=== PATIENT | female | born 1935 | race Hispanic/Latino ===

== ENCOUNTER 2018-11-18 14:44 | Inpatient (IN) | payer MEDICARE, MEDICAID ==
[~2018-11-18 14:44] MED LIST: ISOVUE-370 76%-LOCM 1 ML ONE
[2018-11-18] MEDS ORDERED: Dexamethasone 10 MG/ML VIAL ONE (15:22)
[2018-11-18 15:33] LABS: Analyzer IN Cardio ER; Base Excess (BEa) -2.4 mEq/L (-2.0 to +3.0); CO2 Tension 36.7 mmHg (35.0-45.0); Calcium, Ionized 1.14 mmol/L (1.12-1.30); Carboxyhemoglobin (COHb) 0.6 gm% (0.0-3.0); Hemoglobin (Hb) 12.2 g/dL (12.0-16.0); O2 Tension (PaO2) 69.3 mmHg (> 60.0); Potassium - ABG Lab 3.45 mmol/L (3.70-5.30)
[2018-11-18 15:35] LABS: ALV-art Gradient 84.465 (0-20); Puncture Site RRA
[2018-11-18] MEDS ORDERED: Albuterol Sulfate 2.5 mg/3 ml Neb ONE (15:39)
[2018-11-18] MEDS ORDERED: Albuterol Sulfate 2.5 mg/0.5 ml Neb ONE (15:39)
[2018-11-18 15:46] LABS: #Basophils 0.1 thou/uL (0.0-0.2); #Eosinphils 0.3 thou/uL (0.0-0.7); #Lymphocytes 2.7 thou/uL (1.20-3.40); #Monocytes 1.4 thou/uL (0.11-0.59); #Neutrophils 9.5 thou/uL (1.40-6.50); %Basophils 0.7 % (0.0-1.0); %Eosinophils 1.8 % (0.0-10.0); %Lymphocytes 19.4 % (21.0-51.0); Hemoglobin 11.6 g/dL (12.0-16.0); Mean Corpuscular HGB CONC 32.5 g/dL (32.0-36.0); Mean Corpuscular Hemoglobin 30.1 pg (27.0-31.0); Mean Corpuscular Volume 92.6 fL (78.0-98.0); Mean Platelet Volume 10.5 fL (7.4-10.4); Platelet Count 188 thou/uL (130-400); RBC Distribution Width 14.5 % (11.5-14.5); Red Blood Cell (RBC) Count 3.87 mill/uL (4.20-5.40); White Blood Cell (WBC) Count 13.9 thou/uL (4.8-10.8)
--- NOTE | 2018-11-18 15:57 | RAD ---
XR Chest 1 View Portable HISTORY: Dyspnea shortness of breath, hypertension and cough COMPARISON: 11/13/2016 FINDINGS: Changes of median sternotomy are again seen. The heart is enlarged. The aorta is tortuous. Chronic changes seen in the lung villagran. No lobar consolidation, pneumothoraces or pleural effusions are identified. There is no evidence of lisa pulmonary edema. IMPRESSION: No radiographic evidence of acute cardiopulmonary process.
[2018-11-18 16:04] LABS: ALT (SGPT) 11 U/L (8-55); AST (SGOT) 19 U/L (5-34); Albumin 3.7 g/dL (3.4-4.8); Alkaline Phosphatase 64 U/L (40-150); Anion Gap 15 mmol/L (10-20); BUN (Urea Nitrogen) 23 mg/dL (9.8-20.1); Bilirubin, Total 0.5 mg/dL (0.2-1.2); CK (CPK) 204 U/L (29-168); Calc. Creatinine Clearance 0 mL/min (70-130); Calcium 9.2 mg/dL (7.8-10.44); Carbon Dioxide 24 mmol/L (23-31); Chloride 105 mmol/L (98-107); Estimated GFR-MDRD 33; Globulin 3.3 g/dL (2.4-3.5); Lipase 18 U/L (8-78); Potassium 3.8 mmol/L (3.5-5.1); Sodium 140 mmol/L (136-145)
[2018-11-18 16:08] LABS: Glucose 47 mg/dL (83-110)
[2018-11-18] MEDS ORDERED: Dextrose 50% Abboject 50 ML SYRINGE ONE (16:18)
[2018-11-18 16:34] LABS: CKMB 1.4 ng/mL (0-6.6)
[2018-11-18 17:12] LABS: Bilirubin Small (Negative); Blood, Urine Negative (Negative); Clarity CLOUDY (Clear); Glucose, Urine (Dipstick) Negative (Negative); Leukocyte Moderate (Negative); Nitrite Negative (Negative); Protein, Urine (Dipstick) 100 mg/dL (Neg-Trace); Specific Gravity, Urine 1.021 (1.002-1.036)
[2018-11-18 17:26] LABS: RBC/HPF None Seen HPF (0-3); Squamous Epithelial 0-3 HPF (0-3)
[2018-11-18 17:27] LABS: Bacteria/HPF 3+ HPF (None Seen); Hyaline Casts/LPF 0-3 HYALINE CAST LPF (0-3 Hyaline)
[2018-11-18] MEDS ORDERED: Magnesium 2 GM/50 ML BAG (IN WATER) ONE (18:32)
--- NOTE | 2018-11-18 19:17 | CT ---
CTA CHEST WITH CONTRAST: Date: 11/18/18 Multiple axial tomograms obtained through the chest following pulmonary angio protocol with multiplan ar reconstruction and 3D postprocessing. INDICATION: Shortness of breath. Assess for pulmonary embolus. FINDINGS: The pulmonary arteries show adequate opacification. No evidence of pulmonary embolus identified. There is confluent infiltrate and atelectasis in the right lower lobe concerning for inflammatory inf iltrate/pneumonia. Mediastinum is unremarkable. Thoracic aorta shows atherosclerotic change without evidence of dissecti on. Images through upper abdomen reveal a splenic cystic lesion which measures 2.0 cm. IMPRESSION: 1. No evidence of pulmonary embolus. 2. Right lower lobe infiltrate. 3. Splenic cystic lesion measuring 2.0 cm. POS: [facility]
[2018-11-18] MEDS ORDERED: Acetaminophen 650 MG Suppository PR PRN (20:26)
[2018-11-18] MEDS ORDERED: Dextrose 50% Abboject 50 ML SYRINGE SLOW IVP PRN (20:26)
[2018-11-18] MEDS ORDERED: Ondansetron PF 4 MG/2 ML Vial IVP PRN (20:26)
[2018-11-18] MEDS ORDERED: Senokot S 8.6-50 MG TAB PO PRN (20:26)
[2018-11-18] MEDS ORDERED: Dextrose 5% in Water 1,000 ML IV PRN (20:26)
[2018-11-18] MEDS ORDERED: HumaLOG 300 UNITS/3 ML VIAL SC PRN (20:26)
[2018-11-18] MEDS ORDERED: Ondansetron ODT 4 MG TAB PO PRN (20:26)
[2018-11-18 20:31] VITALS: BMI 31.3
[2018-11-18] MEDS: Simvastatin 40 MG TAB PO SCH (21:03)
[2018-11-18] MEDS: Famotidine 20 MG TAB PO SCH (21:03)
[2018-11-18] MEDS: hydrALAZINE 25 MG TAB PO SCH (21:03)
--- NOTE | 2018-11-19 01:12 | HP ---
PRIMARY CARE PHYSICIAN: Dr. Deutsch. CHIEF COMPLAINT: Shortness of breath and cough. HISTORY OF PRESENT ILLNESS': This is an 83-year-old female with a history of asthma with occasional exacerbations, who reports increasing cough productive of green sputum and shortness of breath and chest tightness for the past 3 days. She had some subjective fevers and chills as well earlier in the course. This is associated with runny nose, sore throat and with some generalized weakness. The patient presented to the emergency room. She was noted to be have increased work of breathing and have O2 sats to the low 90s, not normally on home O2. The patient was given breathing treatments, Decadron, magnesium, and Levaquin in the emergency room with improvement in her symptoms. She is now saturating well on 2 L nasal cannula and breathing much easier. She did have an elevated D-dimer and had a CT angio done which showed a right lower lobe pneumonia since she is being admitted to the hospital. PAST MEDICAL HISTORY: 1. Asthma. 2. Hypertension. 3. Coronary artery disease with previous CABG. 4. Chronic kidney disease, stage 3. 5. Hyperlipidemia. 6. Diabetes mellitus type 2, on oral hypoglycemics. PAST SURGICAL HISTORY: 1. CABG. 2. Back surgery. SOCIAL HISTORY: The patient is single, lives with her daughter. She has not smoked for over 30 years. No alcohol or illicit drug use. FAMILY HISTORY: Positive for coronary artery disease, unknown type of cancer and diabetes. ALLERGIES: PENICILLINS. CURRENT MEDICATIONS: 1. Allopurinol 100 mg daily. 2. Hydralazine 25 mg 3 times a day. 3. Calcitriol 0.25 mcg daily. 4. Glimepiride 1 mg twice a day. 5. Simvastatin 40 mg daily. 6. Omeprazole 40 mg daily. 7. Amlodipine 5 mg daily. 8. Metoprolol succinate 100 mg daily. REVIEW OF SYSTEMS: CONSTITUTIONAL: See HPI. EYES: No double vision or blurred vision. ENT: See HPI. CARDIOVASCULAR: No chest pain. No palpitations or racing heart. PULMONARY: See HPI. GASTROINTESTINAL: No abdominal pain. No nausea or vomiting. She did have some diarrhea, one episode yesterday, one episode today. GENITOURINARY: No dysuria or hematuria. MUSCULOSKELETAL: No muscle aches or joint pain. SKIN: No rashes or lesions noted. NEUROLOGICAL: No numbness, tingling, or focal weakness. Just generalized weakness. PHYSICAL EXAMINATION: VITAL SIGNS: Blood pressure 131/66, pulse 90, respirations 22, temperature 98.3, O2 saturation 100% on 2 L. GENERAL: This is a well-developed obese female, in no acute distress. HEENT: Pupils are equal, round, and reactive to light. Oropharynx clear without lesions, erythema, or exudate. NECK: Supple. No lymphadenopathy. No thyroid nodules or enlargement. No JVD. HEART: Regular rate and rhythm. No murmurs, rubs, or gallops. LUNGS: The patient has some mild crackles in the right base, otherwise good air movement throughout. She does have mild increased work of breathing, especially if she moves around or talks a lot. No wheezing. ABDOMEN: Soft, obese, nontender to palpation. Normoactive bowel sounds. No hepatosplenomegaly or other masses. EXTREMITIES: No clubbing, cyanosis, or edema. SKIN: No rashes or other lesions noted. NEUROLOGIC: Intact strength and sensation in all extremities. No facial droop. PSYCHIATRIC: Alert and oriented x3. Normal mood and affect. LABORATORY DATA: CBC with a white blood cell count of 13.9, hemoglobin 11.6, hematocrit 35.8, platelet count normal. Normal differential. Coagulation profile shows a D-dimer of 1.91. Arterial blood gases, normal pH, normal pCO2, low PO2 of 69.3. Complete metabolic panel is notable for BUN of 23, creatinine of 1.5, which is baseline for her. She did have a low glucose of 47 up to 138 after an amp of D50 in the ER. Creatine kinase was elevated at 204. The rest of everything else was normal. CK-MB was normal. Troponin was indeterminate at 0.030. Her brain natriuretic peptide was elevated at 535, last check was in 2016 was 100. Lactic acid was negative. Urinalysis showed 100 protein, small bilirubin, moderate leukocyte esterase, 4-6 white blood cells, and 3+ bacteria. IMAGING DATA: Chest x-ray, I did review the chest x-ray done in the emergency room along with the radiologist's report. It does show some cardiomegaly and tortuous aorta and median sternotomy changes. No acute changes noted. No lobar consolidation, pneumothoraces, or pleural effusions. No lisa pulmonary edema. CTA of the chest showed no evidence of pulmonary embolism, but there was a pneumonia in the right base. EKG done in the emergency room shows atrial fibrillation with a rate of 91 beats per minute. No ST-segment changes. Mild left axis deviation. ASSESSMENT: 1. Acute community-acquired bacterial pneumonia. We will continue the patient's Levaquin and admit her to the hospital. 2. Acute respiratory failure with hypoxia. We will continue oxygen, nebulized treatments, and steroids. 3. Hypoglycemia, likely secondary to infection. We will monitor closely and run sugar in her fluids. If this recurs, I will start her on a diet. We will hold her hypoglycemic medications for now. 4. New onset atrial fibrillation. The patient sees Dr. Palomino as an outpatient. We will consult Cardiology for evaluation of this. Currently, the rate is not controlled. This is likely due to stimulation to the pneumonia. The patient may end up needing anticoagulation. 5. Diabetes mellitus type 2. Holding oral hypoglycemics. We will do fingerstick blood sugars before meals and at bedtime and give insulin sliding scale as needed. 6. Gastrointestinal prophylaxis. We will continue the patient's PPI. 7. Coronary artery disease. We will resume the patient's home medications. 8. Hypertension. We will resume the patient's blood pressure medications. 9. Hyperlipidemia. We will resume the patient's statin. 10. Deep venous thrombosis prophylaxis. Put the patient on Lovenox and SCDs while in bed. 11. Code status. I did discuss this with the patient. She is a full code. Should she be incapacitated, her daughter would be her medical decision maker, her name is Anuja Blair. Job ID: [id number]
[2018-11-19] MEDS: HumaLOG 300 UNITS/3 ML VIAL SC PRN ×2 (06:03→18:10)
[2018-11-19 06:09] LABS: #Lymphocytes 0.9 thou/uL (1.20-3.40); #Monocytes 0.4 thou/uL (0.11-0.59); #Neutrophils 10.6 thou/uL (1.40-6.50); %Basophils 0.2 % (0.0-1.0); %Eosinophils 0.1 % (0.0-10.0); %Lymphocytes 7.5 % (21.0-51.0); %Monocytes 3.1 % (0.0-10.0); %Neutrophils 89.2 % (42.0-75.0); Hemoglobin 10.4 g/dL (12.0-16.0); Mean Corpuscular HGB CONC 31.6 g/dL (32.0-36.0); Mean Corpuscular Hemoglobin 29.7 pg (27.0-31.0); Mean Corpuscular Volume 93.8 fL (78.0-98.0); Mean Platelet Volume 10.5 fL (7.4-10.4); Platelet Count 171 thou/uL (130-400); RBC Distribution Width 14.4 % (11.5-14.5); Red Blood Cell (RBC) Count 3.51 mill/uL (4.20-5.40); White Blood Cell (WBC) Count 11.9 thou/uL (4.8-10.8)
[2018-11-19 06:30] LABS: Anion Gap 15 mmol/L (10-20); BUN (Urea Nitrogen) 31 mg/dL (9.8-20.1); Calc. Creatinine Clearance 33 mL/min (70-130); Calcium 8.7 mg/dL (7.8-10.44); Carbon Dioxide 21 mmol/L (23-31); Chloride 103 mmol/L (98-107); Estimated GFR-MDRD 28; Glucose 302 mg/dL (83-110); Potassium 3.9 mmol/L (3.5-5.1); Sodium 135 mmol/L (136-145)
[2018-11-19] MEDS: Allopurinol 100 MG TAB PO SCH (08:28)
[2018-11-19] MEDS: Amlodipine 5 MG TAB PO SCH (08:28)
[2018-11-19] MEDS: Famotidine 20 MG TAB PO SCH ×2 (08:28→21:57)
[2018-11-19] MEDS: Calcitriol 0.25 MCG CAP PO SCH (08:28)
[2018-11-19] MEDS: hydrALAZINE 25 MG TAB PO SCH ×3 (08:28→21:29)
[2018-11-19] MEDS ORDERED: Enoxaparin Sodium 40 MG/0.4 ML SYRINGE SC SCH (09:00)
[2018-11-19] MEDS ORDERED: Furosemide 40 MG/4 ML VIAL SLOW IVP SCH (09:00)
--- NOTE | 2018-11-19 10:44 | PRG ---
DATE OF SERVICE: 11/19/2018 SUBJECTIVE: The patient was seen and examined at bedside. She does not have much complaints to offer. She speaks some [place]. She still has cough and feels short of breath. OBJECTIVE: VITAL SIGNS: Blood pressure is 111/73, pulse is 73, temperature is 97.6, and O2 saturation 93% on 2 L by nasal cannula. She is obese. Her BMI is 31.4. HEENT: Head is atraumatic and normocephalic. Eyes are PERRLA. Sclerae are nonicteric. Oral mucosa is moist. NECK: Supple. LUNGS: Right base crackles. No wheezing. HEART: S1, S2. Irregularly irregular. No S3. No S4. No murmur. ABDOMEN: Soft, nontender, and nondistended. Bowel sounds present. EXTREMITIES: No clubbing, cyanosis, or edema. NEUROLOGIC: She follows my commands. She moves all 4 extremities. There are no any motor deficits. LABORATORY DATA: Labs showed white count of 11.9, hemoglobin 10.4, hematocrit 32.9, and platelet count 171,000. Sodium of 135, potassium 3.9, chloride 103, CO2 of 21, BUN 31, creatinine of 1.76, glucose 302, glycemia is ranging from 138 to 297, and calcium 8.7. Microbiology; two blood cultures negative x24 hours. IMPRESSION: 1. Community-acquired pneumonia, confirmed on CT of the chest. The patient is on Levaquin. We will make sure that she is getting DuoNebs. 2. Acute respiratory failure with hypoxemia, secondary to community-acquired pneumonia. 3. atrial fibrillation. The patient is going to be transferred to telemetry floor for better monitoring. Cardiology saw the patient, and they will follow. 4. Diabetes mellitus, type 2. We will restart some of her home medications for diabetes since her glycemia is up to almost 300. 5. Coronary artery disease. 6. Hypertension. 7. Hyperlipidemia. PLAN: Plan is to move her to telemetry floor. Continue her levofloxacin. The patient was started on metoprolol succinate 100 mg once a day to control her atrial fibrillation. DuoNebs q.6 hours plus p.r.n. as needed. We will start her glimepiride. Continue sliding scale for her diabetes. We will continue DVT prophylaxis. Job ID: [id number]
--- NOTE | 2018-11-19 14:01 | CON ---
DATE OF CONSULTATION: PRIMARY CARE DOCTOR: Cris Deutsch MD PRIMARY GRAVE CLEANER: Radha Palomino MD REASON FOR CARDIOLOGY CONSULT: New onset atrial fibrillation and congestive heart failure. HISTORY OF PRESENT ILLNESS: Ms. Jeffers is an 83-year-old female with a significant history of coronary artery disease with status post CABG x3 in 2002, hypertension, diabetes type 2, gout. The patient started having coughing with a shortness of breath and coughing since last Saturday, and last Saturday, she felt dizziness and fluttering in her chest. Also, she had this bilateral lower extremity edema in the last Saturday also. The patient's symptom is getting worse. So, the patient's family transferred this patient to the emergency department for further evaluation and treatment. This patient was found to have acute community-acquired bacterial pneumonia, and she is on antibiotic, which is managed by primary care doctor, and also she was found to have new onset atrial fibrillation with heart rate of 70s. At this moment, the patient denied dizziness, lightheadedness, shortness of breath, chest pain or discomfort in her chest, fluttering or palpitation in her chest, or any other cardiac complaints, except continuous coughing and wheezing. The patient had a history of CABG x3 in 2002. She had a stress test done in 2016 with nonischemic and normal myocardial function. The patient had an echocardiogram, was done in February 2017, shows EF 65%, mild MAC, mild mitral valve regurgitation, mild tricuspid regurgitation, mild aortic valve sclerosis and grade 1 diastolic dysfunction. EKG in August [address] Palomion' office showed sinus rhythm with heart rate of 74. PAST MEDICAL HISTORY: Coronary artery disease, chronic kidney disease stage 3, hypertension, asthma, hyperlipidemia, and diabetes type 2. PAST SURGICAL HISTORY: Back surgery, CABG x3 in 2002, and cataract surgery. FAMILY HISTORY: There is significant family history of hypertension and coronary artery disease. The patient's mother has a history of medical history of colon cancer, diabetes, hypertension, emphysema. She was a smoker. The patient's father was due to myocardial infarction at unknown age. The patient's brother due to colon cancer and lung cancer. He also had a history of diabetes, hypertension, coronary artery disease. The patient's daughter has hypertension. SOCIAL HISTORY: The patient lives with her daughter. She is ex-smoker, quit 30 years ago. She is an ex-EtOH abuser, quit long time ago. She denied illicit drug abuse. She uses a walker. Per family member, she has not fallen in more than 6 months, but she complained of dizziness last week. Whenever she has a pressure to the neck, she started feeling the dizziness and her blood pressure is elevated. ALLERGIES: SHE IS ALLERGIC TO PENICILLIN. CURRENT MEDICATIONS: 1. Metoprolol succinate 100 mg once a day. 2. Calcitriol 0.25 mcg daily. 3. Simvastatin 40 mg once a day. 4. Norvasc 5 mg once a day. 5. Vitamin D3 2000 units once a day. 6. Glimepiride 1 mg once a day. 7. Omeprazole 40 mg once a day. 8. ProAir two puffs every 4 to 6 hours as needed. 9. Allopurinol 100 mg once a day. 10. Hydralazine 25 mg 3 times a day. 11. Tylenol No. 3 every 6 hours as needed. REVIEW OF SYSTEMS: Twelve-point review of systems was negative unless or otherwise mentioned in the HPI. She had one episode of diarrhea last week. She denied any hematuria or hematochezia. She uses a walker. She has not fallen in more than 6 months. PHYSICAL EXAMINATION: VITAL SIGNS: Blood pressure 111/70, heart rate 73 and irregularly irregular, temperature 97.6, O2 saturation 93% on 2 L nasal cannula. GENERAL: The patient is alert and oriented x4. Hard of hearing. Not in acute distress. HEAD: Normocephalic, atraumatic. EYES: Extraocular muscle movement intact. ENT AND MOUTH: Oral and nasal mucosa are moist without lesion. NECK: No JVD. Normal range of motion. RESPIRATORY: Wheezing and diminished at the bases. CARDIOVASCULAR: Irregularly irregular. There is no S3 or S4. No significant murmur, hives, or thrills noted. 2+ pulses in bilateral upper and lower extremities. No edema in the lower extremities. Carotid pulses are present without bruits or thrill. ABDOMEN: Soft, nontender. No mass to palpitate. Bowel sounds are present. MUSCULOSKELETAL: The patient is able to move all extremities. The patient denied claudication. SKIN: Warm and dry. No lesion, rash, erythema noticed. PSYCHIATRIC: The patient's mood is appropriate. NEUROLOGIC: The patient is alert and oriented x4. The patient is able to follow commands. LABORATORY DATA: WBC 11.9, hemoglobin 10.4, hematocrit 32.9, platelet 171. D-dimer 1.91. The patient's CT scan is showing negative PE. Sodium 135, potassium 3.9, BUN 31, creatinine 1.76, which is the patient's baseline. Lactic acid 0.8. AST 19, ALT 11. CK 204, CK-MB 1.4, troponin 0.030. BNP is 535.3. ASSESSMENT AND PLAN: 1. New onset atrial fibrillation with a controlled heart rate. The patient's heart rate and vital signs are stable at this moment without any additional antiarrhythmic medication. The patient is on Lovenox 40 mg subcu once a day, which we are going to adjust the medicine as prophylactic atrial fibrillation dose, and eventually, we are going to change to oral anticoagulant. The patient has not fallen in more than 6 months, although the patient uses a walker for her balance. She is not anemic. She denies any hematuria or hematochezia at this moment. We are going to transfer the patient to the telemetry floor, and also, we are going to check the patient's left heart with the echocardiogram. 2. New onset of congestive heart failure, possible diastolic in nature. The patient's BNP is more than 500. Again, the patient is to be on beta alicia, but not SERGEY inhibitor or ARB at this moment due to history of chronic kidney disease. She denies any swelling in the lower extremity or abdomen distended, except the shortness of breath possibly due to this pneumonia. Due to continued wheezing, I would like to go ahead and order one time Lasix IV for this patient. 3. Coronary artery disease with a history of coronary artery bypass graft in 2002. The patient's condition is stable at this moment. The patient is on metoprolol, but not SERGEY inhibitor or ARB at this moment due to the chronic kidney disease. She is on simvastatin at this moment. 4. Hypertension. The patient's blood pressure is stable at this moment with current medications. 5. Diabetes type 2, which is managed by primary care doctor. 6. History of gout. She is on allopurinol 100 mg once a day. The patient is asymptomatic at this moment. 7. Pneumonia. The patient has continued wheezing. She is on breathing treatment and antibiotic, which is managed by primary care doctor. Thank you very much for allowing the Cardiology Service to participate in the care of this patient. We will follow along with the patient's care team and make further recommendation as appropriate. Job ID: [id number]
[2018-11-19] MEDS: Glimepiride 1 MG TAB PO SCH (18:09)
[2018-11-19] MEDS: Simvastatin 40 MG TAB PO SCH (21:22)
[2018-11-19] MEDS: Heparin 5,000 UNITS/ML VIAL SC SCH (21:22)
--- NOTE | 2018-11-20 00:40 | CON ---
DATE OF CONSULTATION: 11/19/2018 INDICATION FOR CONSULTATION: An 83-year-old female who was admitted with pneumonia, who had increasing shortness of breath and wheezing. She has a history of asthma. Recently, her brother . She was at the on Saturday and she went home early from the not feeling well and she has continued to have worsening of her shortness of breath and was brought into the emergency room last night by the daughter as she continued to have difficulty in breathing. In the emergency room, she was given a breathing treatment and she was admitted for further evaluation and also started on antibiotics as well as nebulizer treatments. In the emergency room, she had an EKG, which was felt to be in atrial fibrillation. However, on close evaluation of the EKG, this does not appear to be atrial fibrillation. This is a sinus rhythm with PACs and PVCs. Baseline obviously has a lot of artifact, but she has had no further atrial fibrillation since being here in the hospital that I can determine. If there are some rhythm strips downstairs in the emergency room, I would appreciate being able to see those. However, at this time, I see no indication that the patient has any atrial fibrillation and according to the records when she was in atrial fibrillation, the heart rate was in the 70s. At this time, I do not see any indication that she has atrial fibrillation. The cardiac status appears to be stable. She denied any chest pain. She did undergo bypass surgery in 2002. She had a stress test done in 2006, which showed a normal myocardial function with no evidence of ischemia. She had an echocardiogram in 2016, which showed normal ejection fraction with mild mitral valve regurgitation, mild aortic valve sclerosis and some mild diastolic dysfunction. She also had an EKG earlier this year at my office in August, which showed evidence of sinus rhythm with a heart rate in the 70s. PAST MEDICAL HISTORY: Please refer to the notes dictated by my nurse practitioner. SOCIAL HISTORY: Please refer to the notes dictated by my nurse practitioner. FAMILY HISTORY: Please refer to the notes dictated by my nurse practitioner. REVIEW OF SYSTEMS: Please refer to the notes dictated by my nurse practitioner. ALLERGIES: PLEASE REFER TO THE NOTES DICTATED BY MY NURSE PRACTITIONER. MEDICATIONS: Please refer to the notes dictated by my nurse practitioner. PHYSICAL EXAMINATION: GENERAL: Reveals an elderly female, who continues to have wheezing and shortness of breath. VITAL SIGNS: Her blood pressure is 124/69, her heart rate is in the 60s to 70s. She is afebrile, respiratory rate 16, and O2 saturation is 96%. HEENT: Shows head to be normocephalic and atraumatic. Carotid pulses are present. I could not hear any bruits with this upper airway noise noted. CHEST: Her chest has diffuse wheezing throughout with basilar rales. I did not notice any other significant abnormalities, but she did have so much wheezing and it is difficult to determine. CARDIOVASCULAR: At this time reveals a regular rate and rhythm. She has an S1 and S2. I do not hear any significant S3 or S4. There were no gross murmurs noted. ABDOMEN: Shows morbid obesity. Positive bowel sounds are present. EXTREMITIES: Show no clubbing or cyanosis. No lower extremity edema was noted. NEUROLOGICAL: She appears to be fully intact at this time. SKIN: Warm and dry. LABORATORY DATA: Please refer to the notes dictated by the nurse practitioner. I reviewed her EKG. She does have some mild cardiomegaly perhaps. She also has what appears to be a right lower lobe infiltrate. IMPRESSION: 1. At this time my impression on this lady is she has right lower lobe pneumonia with chronic obstructive pulmonary disease exacerbation from her asthma. We will continue with her antibiotics and nebulizer treatments. 2. Abnormal EKG, but does not indicate that she has atrial fibrillation. I do not see any indication for oral anticoagulation at this time. We will continue Lovenox at a deep venous thrombosis prophylaxis. I would agree with her other medical management at this time. We will be more than happy to continue to follow the patient with you until she becomes stable from a pulmonary standpoint and may consider a pulmonology consultation in this lady and certainly if she continues to deteriorate, but at this time, cardiac status appears to be stable. Job ID: [id number]
[2018-11-20] MEDS: Calcitriol 0.25 MCG CAP PO SCH (08:45)
[2018-11-20] MEDS: hydrALAZINE 25 MG TAB PO SCH ×3 (08:46→20:22)
[2018-11-20] MEDS: Famotidine 20 MG TAB PO SCH (08:46)
[2018-11-20] MEDS: Heparin 5,000 UNITS/ML VIAL SC SCH ×2 (08:47→20:22)
[2018-11-20] MEDS: Amlodipine 5 MG TAB PO SCH (08:47)
[2018-11-20] MEDS: Allopurinol 100 MG TAB PO SCH (08:47)
[2018-11-20 09:06] LABS: #Lymphocytes 1.7 thou/uL (1.20-3.40); #Monocytes 0.8 thou/uL (0.11-0.59); #Neutrophils 12.7 thou/uL (1.40-6.50); %Eosinophils 0.1 % (0.0-10.0); %Lymphocytes 11.4 % (21.0-51.0); %Monocytes 5.3 % (0.0-10.0); %Neutrophils 83.3 % (42.0-75.0); Hemoglobin 10.8 g/dL (12.0-16.0); Mean Corpuscular HGB CONC 31.6 g/dL (32.0-36.0); Mean Corpuscular Hemoglobin 29.1 pg (27.0-31.0); Mean Corpuscular Volume 92.2 fL (78.0-98.0); Mean Platelet Volume 10.2 fL (7.4-10.4); Platelet Count 223 thou/uL (130-400); RBC Distribution Width 14.4 % (11.5-14.5); Red Blood Cell (RBC) Count 3.71 mill/uL (4.20-5.40); White Blood Cell (WBC) Count 15.3 thou/uL (4.8-10.8)
[2018-11-20 09:27] LABS: Anion Gap 16 mmol/L (10-20); BUN (Urea Nitrogen) 43 mg/dL (9.8-20.1); Calc. Creatinine Clearance 33 mL/min (70-130); Calcium 9.2 mg/dL (7.8-10.44); Carbon Dioxide 21 mmol/L (23-31); Chloride 107 mmol/L (98-107); Estimated GFR-MDRD 26; Glucose 162 mg/dL (83-110); Sodium 140 mmol/L (136-145)
[2018-11-20] MEDS: Glimepiride 1 MG TAB PO SCH ×2 (10:06→16:35)
[2018-11-20] MEDS: Acetaminophen 325 MG TAB PO PRN ×2 (12:27→22:51)
--- NOTE | 2018-11-20 13:20 | PDOC.CTH ---
Cardiology Progress Note - Subjective The pt seen and examined. No overnight events. No cardiac complaints. She cont having SOB. - Objective Vital Signs Temp Pulse Pulse Pulse Resp BP BP 11/20/18 11:30 97.6 F 58 L 18 11/20/18 10:32 84 132/58 L 11/20/18 08:47 82 11/20/18 08:46 82 11/20/18 08:18 76 67 135/58 L 153/87 H 11/20/18 08:00 98.0 F 74 20 11/20/18 07:00 73 16 11/20/18 03:30 98.0 F 75 30 H 11/20/18 03:11 65 24 H BP Pulse Ox Pulse Ox Pulse Ox Pulse Ox 11/20/18 11:30 156/76 H 95 11/20/18 10:32 94 L 95 11/20/18 08:47 11/20/18 08:46 11/20/18 08:18 93 L 91 L 94 L 11/20/18 08:00 135/67 91 L 11/20/18 07:00 90 L 11/20/18 03:30 137/77 92 L 11/20/18 03:11 96 Weight 199 lb 6.4 oz 11/19/18 11/20/18 11/21/18 06:59 06:59 06:59 Intake Total 350 240 580 Balance 350 240 580 - Physical Examination General/Neuro: alert & oriented x3 Neck: no JVD present Lungs: other: (corses and diminished at bases) Heart: RRR Abdomen: soft Extremities: other: (No edema) - Telemetry Telemetry Rhythm: SR - Labs Result Diagrams: 11/20/18 08:56 11/20/18 08:56 Troponin/CKMB CK-MB (CK-2) 1.4 ng/mL (0-6.6) 11/18/18 15:22 Troponin I 0.030 ng/mL (< 0.028) H 11/18/18 15:22 - Assessment/Plan 1. Acute on Chronic diastolic HF - stable without Lasix for now;On BBlocker, but no SERGEY/ARB due to hx of CKD; 2. PNA - managed by PCP 3. CAD with hx of CABG in 2002 - stable;on BBlocker; will start ASA 4. HTN - stable 5. DM type 2 6. CKD stage 3 7. Asthma MAR reviewed Echo on 11/19/2018 with EF 60-65%, grade I diastolic dysfunction, mild MR and TR Pt. seen and eval. by me. I agree with the A/P by the COIN BOX INSPECTOR. She is still SOB and wheezing but actually better than yesterday. The cardiac status is stable. i will sign off. If any changes in her cardiac status please consult me again. Thank you. [email or web address] Review of Systems - Review of Systems Constitutional: reports: no symptoms reported EENTM: reports: no symptoms reported Respiratory: reports: see HPI Cardiac (ROS): reports: no symptoms reported ABD/GI: reports: no symptoms reported : reports: no symptoms reported Musculoskeletal: reports: no symptoms reported Skin: reports: no symptoms reported
--- NOTE | 2018-11-20 15:07 | PDOC.PN ---
- Subjective Encounter Start Date: 11/20/18 Encounter Start Time: 08:00 Pt seen for followup re; acute hypoxic respiratory failure. Cough+, sputum+. No fevers. - Objective Resuscitation Status - Order Detail: 11/18/18 19:00 Resuscitation Status Routine Resuscitation Status: FULL: Full Resuscitation Discussed with: Patient ANNALISA Reviewed: Yes Vital Signs & Weight: Vital Signs (12 hours) Temp Pulse Pulse Pulse Resp BP BP 11/20/18 11:30 97.6 F 58 L 18 11/20/18 10:32 84 132/58 L 11/20/18 08:47 82 11/20/18 08:46 82 11/20/18 08:18 76 67 135/58 L 153/87 H 11/20/18 08:00 98.0 F 74 20 11/20/18 07:00 73 16 11/20/18 03:30 98.0 F 75 30 H 11/20/18 03:11 65 24 H BP Pulse Ox Pulse Ox Pulse Ox Pulse Ox 11/20/18 11:30 156/76 H 95 11/20/18 10:32 94 L 95 11/20/18 08:47 11/20/18 08:46 11/20/18 08:18 93 L 91 L 94 L 11/20/18 08:00 135/67 91 L 11/20/18 07:00 90 L 11/20/18 03:30 137/77 92 L 11/20/18 03:11 96 Weight Weight 199 lb 6.4 oz I&O: 11/19/18 11/20/18 11/21/18 06:59 06:59 06:59 Intake Total 350 240 580 Balance 350 240 580 Result Diagrams: 11/20/18 08:56 11/20/18 08:56 Additional Labs: Accuchecks 11/20/18 11/20/18 11/19/18 10:39 05:29 20:45 POC Glucose 192 H 132 H 132 H 11/19/18 16:41 POC Glucose 174 H EKG Reviewed by me: Yes (Tele: NSR) Phys Exam - Physical Examination Obese HEENT: moist MMs blue ? tube on L tympanic membrane Neck: supple Respiratory: clear to auscultation bilateral Cardiovascular: RRR Gastrointestinal: soft Musculoskeletal: edema present Neurological: moves all 4 limbs Psychiatric: normal affect Dx/Plan (1) Acute respiratory failure with hypoxia Code(s): J96.01 - ACUTE RESPIRATORY FAILURE WITH HYPOXIA Status: Acute Comment: Improving, secondary to pneumonia (2) Pneumonia Code(s): J18.9 - PNEUMONIA, UNSPECIFIED ORGANISM Status: Acute Comment: continue levofloxacin (3) DM type 2 (diabetes mellitus, type 2) Status: Chronic Comment: reasonable control (4) HTN (hypertension) Code(s): I10 - ESSENTIAL (PRIMARY) HYPERTENSION Status: Chronic Comment: monitor vital signs, titrate antihypertensives as needed - Plan * . Review of Systems - Review of Systems ENT: Ear Pain, Throat Swelling, Other. negative: Ear Discharge, Throat Pain Respiratory: Cough, Wheezing. negative: Dry, Shortness of Breath, Hemoptysis, SOB with Excertion, Pleuritic Pain, Sputum Cardiovascular: negative: chest pain, palpitations, orthopnea, paroxysmal nocturnal dyspnea, edema, light headedness - Medications/Allergies Allergies/Adverse Reactions: Allergies Allergy/AdvReac Type Severity Reaction Status Date / Time Penicillins Allergy Severe Rash Verified 11/18/18 20:39 Medications: Current Medications Acetaminophen (Tylenol) 650 mg PO Q4H PRN PRN Reason: Headache/Fever/Mild Pain (1-3) Last Admin: 11/20/18 12:27 Dose: 650 mg Acetaminophen (Tylenol) 650 mg [place] Q4H PRN PRN Reason: Headache/Fever/Mild Pain (1-3) Albuterol/Ipratropium (Duoneb) 3 ml NEB [id number] [id number] Last Admin: 11/20/18 13:24 Dose: Not Given Albuterol/Ipratropium (Duoneb) 3 ml NEB [id number] PRN PRN Reason: SOB &/or Wheezing Last Admin: 11/20/18 03:11 Dose: 3 ml Allopurinol (Zyloprim) 100 mg PO DAILY [facility] Last Admin: 11/20/18 08:47 Dose: 100 mg Amlodipine Besylate (Norvasc) 5 mg PO DAILY [facility] Last Admin: 11/20/18 08:47 Dose: 5 mg Calcitriol (Rocaltrol) 0.25 mcg PO DAILY [facility] Last Admin: 11/20/18 08:45 Dose: 0.25 mcg Dextrose/Water (Dextrose 50%) 25 gm SLOW IVP PRN PRN PRN Reason: Hypoglycemia Famotidine (Pepcid) 20 mg PO DAILY [facility] Last Admin: 11/20/18 08:46 Dose: 20 mg Glimepiride (Amaryl) 1 mg PO BID-[facility] Last Admin: 11/20/18 10:06 Dose: 1 mg Glucagon (Glucagon) 1 mg IM PRN PRN PRN Reason: Hypoglycemia Guaifenesin/Dextromethorphan (Robitussin Dm) 15 ml PO Q4H PRN PRN Reason: Cough Heparin Sodium (Porcine) (Heparin) 5,000 units SC BID [facility] Last Admin: 11/20/18 08:47 Dose: 5,000 units Hydralazine HCl (Apresoline) 25 mg PO TID [facility] Last Admin: 11/20/18 08:46 Dose: 25 mg Dextrose/Water (D5w) 1,000 mls @ 0 mls/hr IV .Q0M PRN PRN Reason: Hypoglycemia Levofloxacin 500 mg/ Device 100 mls @ 100 mls/hr IVPB Q2D@1800 [facility] Insulin Human Lispro (Humalog) 0 units SC .MILD SLIDING SCALE PRN PRN Reason: Mild Correctional Scale Last Admin: 11/19/18 18:10 Dose: 2 unit Insulin Human Lispro (Humalog) 0 units SC .BEDTIME SLIDING SC PRN PRN Reason: Bedtime Correctional Scale Metoprolol Succinate (Toprol Xl) 100 mg PO DAILY [facility] Last Admin: 11/20/18 08:45 Dose: 100 mg Ondansetron HCl (Zofran Odt) 4 mg PO Q6H PRN PRN Reason: Nausea/Vomiting Ondansetron HCl (Zofran) 4 mg IVP Q6H PRN PRN Reason: Nausea/Vomiting Pantoprazole Sodium (Protonix) 40 mg PO DAILY [facility] Last Admin: 11/20/18 08:45 Dose: 40 mg Senna/Docusate Sodium (Senokot S) 2 tab PO BID PRN PRN Reason: Constipation Simvastatin (Zocor) 40 mg PO HS [facility] Last Admin: 11/19/18 21:22 Dose: 40 mg
[2018-11-20] MEDS: Simvastatin 40 MG TAB PO SCH (20:22)
[2018-11-20] MEDS: Guaifenesin DM 100-10/5 ML UDCUP PO PRN (22:51)
[2018-11-21 01:36] LABS: Lactic Acid 1.4 mmol/L (0.5-2.2)
[2018-11-21 01:43] LABS: ALT (SGPT) 13 U/L (8-55); AST (SGOT) 21 U/L (5-34); Albumin 3.4 g/dL (3.4-4.8); Alkaline Phosphatase 63 U/L (40-150); Anion Gap 13 mmol/L (10-20); BUN (Urea Nitrogen) 46 mg/dL (9.8-20.1); Bilirubin, Total 0.3 mg/dL (0.2-1.2); Calc. Creatinine Clearance 35 mL/min (70-130); Calcium 8.8 mg/dL (7.8-10.44); Carbon Dioxide 24 mmol/L (23-31); Chloride 108 mmol/L (98-107); Estimated GFR-MDRD 28; Globulin 2.8 g/dL (2.4-3.5); Glucose 81 mg/dL (83-110); Magnesium 2.1 mg/dL (1.6-2.6); Potassium 3.5 mmol/L (3.5-5.1); Protein, Total 6.2 g/dL (6.0-8.3); Sodium 141 mmol/L (136-145)
[2018-11-21 02:01] LABS: Analyzer IN Cardio OR; Base Excess (BEa) -0.1 mEq/L (-2.0 to +3.0); CO2 Tension 43.1 mmHg (35.0-45.0); Calcium, Ionized 1.15 mmol/L (1.12-1.30); Carboxyhemoglobin (COHb) 0.6 gm% (0.0-3.0); Hemoglobin (Hb) 10.2 g/dL (12.0-16.0); O2 Tension (PaO2) 69.5 mmHg (> 60.0); Potassium - ABG Lab 3.57 mmol/L (3.70-5.30); pH, Arterial 7.38 (7.35-7.45)
[2018-11-21 02:02] LABS: ALV-art Gradient 76.265 (0-20); Puncture Site LRA
[2018-11-21 05:25] LABS: #Basophils 0.1 thou/uL (0.0-0.2); #Eosinphils 0.1 thou/uL (0.0-0.7); #Lymphocytes 3.1 thou/uL (1.20-3.40); #Monocytes 1.4 thou/uL (0.11-0.59); #Neutrophils 9.1 thou/uL (1.40-6.50); %Basophils 0.4 % (0.0-1.0); %Eosinophils 0.5 % (0.0-10.0); %Lymphocytes 22.5 % (21.0-51.0); %Monocytes 9.9 % (0.0-10.0); %Neutrophils 66.7 % (42.0-75.0); Hemoglobin 10.7 g/dL (12.0-16.0); Mean Corpuscular HGB CONC 30.6 g/dL (32.0-36.0); Mean Corpuscular Hemoglobin 28.8 pg (27.0-31.0); Mean Corpuscular Volume 94.1 fL (78.0-98.0); Mean Platelet Volume 10.7 fL (7.4-10.4); Platelet Count 243 thou/uL (130-400); RBC Distribution Width 14.7 % (11.5-14.5); Red Blood Cell (RBC) Count 3.71 mill/uL (4.20-5.40); White Blood Cell (WBC) Count 13.7 thou/uL (4.8-10.8)
[2018-11-21 05:46] LABS: Anion Gap 14 mmol/L (10-20); BUN (Urea Nitrogen) 43 mg/dL (9.8-20.1); Calc. Creatinine Clearance 38 mL/min (70-130); Calcium 9.2 mg/dL (7.8-10.44); Carbon Dioxide 22 mmol/L (23-31); Chloride 110 mmol/L (98-107); Estimated GFR-MDRD 31; Potassium 4.1 mmol/L (3.5-5.1); Sodium 142 mmol/L (136-145)
[2018-11-21 05:50] LABS: Glucose 44 mg/dL (83-110)
--- NOTE | 2018-11-21 08:10 | RAD ---
RADIOGRAPH CHEST 1 VIEW: DATE: 11/20/2018 HISTORY: 83-year-old female with dyspnea FINDINGS: There is cardiomegaly. There is no evidence of airspace density, pulmonary edema, or pneumothorax. Th e lateral costophrenic angles are not effaced. There are sternotomy wires. IMPRESSION: 1) No acute pulmonary findings. 2) cardiomegaly without congestive heart failure.
[2018-11-21] MEDS: Glimepiride 1 MG TAB PO SCH (08:54)
[2018-11-21] MEDS: hydrALAZINE 25 MG TAB PO SCH ×3 (08:55→20:49)
[2018-11-21] MEDS: Calcitriol 0.25 MCG CAP PO SCH (08:55)
[2018-11-21] MEDS: Allopurinol 100 MG TAB PO SCH (08:55)
[2018-11-21] MEDS: Amlodipine 5 MG TAB PO SCH (08:55)
[2018-11-21] MEDS: Heparin 5,000 UNITS/ML VIAL SC SCH ×2 (08:56→20:49)
[2018-11-21] MEDS: Guaifenesin DM 100-10/5 ML UDCUP PO PRN (08:56)
[2018-11-21] MEDS: Famotidine 20 MG TAB PO SCH (08:56)
[2018-11-21] MEDS ORDERED: Furosemide 40 MG/4 ML VIAL SLOW IVP SCH (09:45)
[2018-11-21] MEDS ORDERED: Magnesium 2 GM/50 ML 2 GM in Premix Bag 1 BAG IVPB SCH (09:45)
--- NOTE | 2018-11-21 15:24 | PDOC.PN ---
- Subjective Encounter Start Date: 11/21/18 Encounter Start Time: 07:40 Pt seen for followup re: acute hypoxic respiratory failure. Says she feels well , no complaints. - Objective Resuscitation Status - Order Detail: 11/18/18 19:00 Resuscitation Status Routine Resuscitation Status: FULL: Full Resuscitation Discussed with: Danya FANG Reviewed: Yes Vital Signs & Weight: Vital Signs (12 hours) Temp Pulse Resp BP Pulse Ox 11/21/18 13:37 85 16 11/21/18 11:55 97.6 F 85 30 H 149/66 H 94 L 11/21/18 08:55 85 11/21/18 07:45 97.6 F 96 23 H 173/75 H 96 11/21/18 07:25 93 L 11/21/18 07:24 76 18 11/21/18 04:00 97.5 F L 76 21 H 134/60 94 L Weight Weight 199 lb 3.2 oz I&O: 11/20/18 11/21/18 11/22/18 06:59 06:59 06:59 Intake Total 240 1140 Balance 240 1140 Result Diagrams: 11/21/18 04:44 11/21/18 04:44 Additional Labs: Accuchecks 11/21/18 11/21/18 11/21/18 10:51 06:28 05:46 POC Glucose 174 H 116 H 50 L* 11/20/18 11/20/18 20:15 16:27 POC Glucose 104 89 EKG Reviewed by me: Yes (Tele: NSR) Phys Exam - Physical Examination Obese HEENT: sclera anicteric, oral pharynx no lesions Neck: supple Respiratory: wheezing present lot of transmitted wheezing from throat Cardiovascular: RRR Gastrointestinal: soft Neurological: moves all 4 limbs Psychiatric: normal affect Dx/Plan (1) Acute respiratory failure with hypoxia Code(s): J96.01 - ACUTE RESPIRATORY FAILURE WITH HYPOXIA Status: Acute Comment: Improving, secondary to a combination of pneumonia and diastolic CHF exacerbation. (2) Acute on chronic diastolic CHF (congestive heart failure), NYHA class 3 Code(s): I50.33 - ACUTE ON CHRONIC DIASTOLIC (CONGESTIVE) HEART FAILURE Status : Acute Comment: BNP elevated, pt hypoxic. Start furosemide. (3) Pneumonia Code(s): J18.9 - PNEUMONIA, UNSPECIFIED ORGANISM Status: Acute Comment: continue levofloxacin, appreciate pulmonology input (4) DM type 2 (diabetes mellitus, type 2) Status: Chronic Comment: Pt had hypoglycemia, decrease glimepiride dose to 1 mg daily (5) HTN (hypertension) Code(s): I10 - ESSENTIAL (PRIMARY) HYPERTENSION Status: Chronic Comment: monitor vital signs, titrate antihypertensives as needed - Plan * . Review of Systems - Review of Systems Respiratory: Wheezing. negative: Cough, Dry, Shortness of Breath, Hemoptysis, SOB with Excertion, Pleuritic Pain, Sputum Cardiovascular: negative: chest pain, palpitations, orthopnea, paroxysmal nocturnal dyspnea, edema, light headedness - Medications/Allergies Allergies/Adverse Reactions: Allergies Allergy/AdvReac Type Severity Reaction Status Date / Time Penicillins Allergy Severe Rash Verified 11/18/18 20:39 Medications: Current Medications Acetaminophen (Tylenol) 650 mg PO Q4H PRN PRN Reason: Headache/Fever/Mild Pain (1-3) Last Admin: 11/20/18 22:51 Dose: 650 mg Acetaminophen (Tylenol) 650 mg [place] Q4H PRN PRN Reason: Headache/Fever/Mild Pain (1-3) Albuterol/Ipratropium (Duoneb) 3 ml NEB [id number] [facility] Last Admin: 11/21/18 13:37 Dose: 3 ml Albuterol/Ipratropium (Duoneb) 3 ml NEB [id number] PRN PRN Reason: SOB &/or Wheezing Last Admin: 11/20/18 22:32 Dose: 3 ml Allopurinol (Zyloprim) 100 mg PO DAILY [facility] Last Admin: 11/21/18 08:55 Dose: 100 mg Amlodipine Besylate (Norvasc) 5 mg PO DAILY [facility] Last Admin: 11/21/18 08:55 Dose: 5 mg Calcitriol (Rocaltrol) 0.25 mcg PO DAILY [facility] Last Admin: 11/21/18 08:55 Dose: 0.25 mcg Dextrose/Water (Dextrose 50%) 25 gm SLOW IVP PRN PRN PRN Reason: Hypoglycemia Famotidine (Pepcid) 20 mg PO DAILY [facility] Last Admin: 11/21/18 08:56 Dose: 20 mg Glimepiride (Amaryl) 1 mg PO QA-[facility] Glucagon (Glucagon) 1 mg IM PRN PRN PRN Reason: Hypoglycemia Guaifenesin/Dextromethorphan (Robitussin Dm) 15 ml PO Q4H PRN PRN Reason: Cough Last Admin: 11/21/18 08:56 Dose: 15 ml Heparin Sodium (Porcine) (Heparin) 5,000 units SC BID [facility] Last Admin: 11/21/18 08:56 Dose: 5,000 units Hydralazine HCl (Apresoline) 25 mg PO TID [facility] Last Admin: 11/21/18 08:55 Dose: 25 mg Dextrose/Water (D5w) 1,000 mls @ 0 mls/hr IV .Q0M PRN PRN Reason: Hypoglycemia Insulin Human Lispro (Humalog) 0 units SC .MILD SLIDING SCALE PRN PRN Reason: Mild Correctional Scale Last Admin: 11/19/18 18:10 Dose: 2 unit Insulin Human Lispro (Humalog) 0 units SC .BEDTIME SLIDING SC PRN PRN Reason: Bedtime Correctional Scale Levofloxacin (Levaquin) 250 mg PO 0600 [facility] Stop: 11/26/18 06:01 Metoprolol Succinate (Toprol Xl) 100 mg PO DAILY [facility] Last Admin: 11/21/18 08:55 Dose: 100 mg Mometasone Furoate/Formoterol Fumar (Dulera 100 Mcg/5 Mcg Inhaler) 2 puff INH BID-RT [facility] Ondansetron HCl (Zofran Odt) 4 mg PO Q6H PRN PRN Reason: Nausea/Vomiting Ondansetron HCl (Zofran) 4 mg IVP Q6H PRN PRN Reason: Nausea/Vomiting Pantoprazole Sodium (Protonix) 40 mg PO DAILY [facility] Last Admin: 11/21/18 08:55 Dose: 40 mg Senna/Docusate Sodium (Senokot S) 2 tab PO BID PRN PRN Reason: Constipation Simvastatin (Zocor) 40 mg PO HS [facility] Last Admin: 11/20/18 20:22 Dose: 40 mg
[2018-11-21] MEDS: Mometasone/Formoterol 120 PUFF INHALER INH SCH (18:32)
[2018-11-21] MEDS: Simvastatin 40 MG TAB PO SCH (20:49)
--- NOTE | 2018-11-21 22:44 | CON ---
DATE OF CONSULTATION: 11/21/2018 SERVICE: Pulmonary Medicine REASON FOR CONSULTATION: Pneumonia. HISTORY OF PRESENT ILLNESS: The patient is an 83-year-old white female with past medical history significant for morbid obesity and asthma. She was diagnosed with asthma roughly one year ago. She presented to the hospital with about a week history of increasing cough, bringing up white phlegm, wheezing, and shortness of breath, particularly with exertion. She denies having any orthopnea or paroxysmal nocturnal dyspnea. She did not have any fevers. There were no sick contacts recently. Over the last day prior to admission, she started having increasing shortness of breath, cough, and it started turning yellow in color. She presented to the emergency department because of difficulty breathing, and was given some antibiotics, nebulized medications, and steroids. She was tucked in the ICU. Overnight, her breathing has improved a little bit. She denies any current fevers or chills. Nursing reports no overnight events. PAST MEDICAL HISTORY: 1. Morbid obesity. 2. Asthma, diagnosed one year ago. 3. Hypertension. 4. Dyslipidemia. 5. Chronic kidney disease, stage 3. 6. Coronary artery disease. 7. Type 2 diabetes mellitus. PAST SURGICAL HISTORY: 1. Coronary artery bypass graft surgery. 2. Back surgery. SOCIAL HISTORY: Negative for current alcohol, tobacco, or illicit drug use. She has about a [id number] history of smoking, but quit over 30 years ago. She denies any alcohol or illicit drugs. She has no exposure to chemicals, dust, asbestos , or tuberculosis that she is aware of. FAMILY HISTORY: Noncontributory. ALLERGIES: PENICILLIN. MEDICATIONS: List of her inpatient medications was reviewed. No specific updates were made at this time. REVIEW OF SYSTEMS: General; head, ears, eyes, nose, throat; cardiovascular; respiratory; GI; ; musculoskeletal; neurologic; and skin are negative except as mentioned is the HPI. PHYSICAL EXAMINATION: VITAL SIGNS: Afebrile. Pulse 85, blood pressure 149/66, respirations 16, and saturation 94% on 2 L nasal cannula. GENERAL: The patient is awake and alert, in no apparent distress. LUNGS: Decent air entry. There is not much of a prolonged expiratory phase, though I do hear minimal wheezing at the end of expiration. HEART: Normal rate, regular. ABDOMEN: Soft, nontender, and nondistended. Bowel sounds are positive. MUSCULOSKELETAL: No cyanosis or clubbing. There is trace to 1+ pitting in the bilateral lower extremities. NEUROLOGIC: grossly nonfocal. LABORATORY DATA: WBC 13.7, hemoglobin 10.7, and platelets 243,000. D-dimer 1.19. The pH of 7.38, pCO2 of 43, and pO2 of 70. At that time, she was on 28% oxygen. Blood sugar ranges from 44 up to 177, creatinine 1.59 which is close to baseline , chloride 110, and Sodium 140. BNP 1100. Urine culture is growing lactobacillus. Respiratory culture and blood cultures x2 are unremarkable today. There are many gram-positive cocci and pairs as well as clusters. IMAGING STUDIES: Chest x-ray demonstrates no real acute cardiopulmonary abnormality. Interstitial fullness is present. Lung volumes are large for her height. CTA of the chest demonstrates a very irregularly-shaped infiltrate in the right lower lobe, likely mostly consistent with partial atelectasis associated with mucus plugging. Interstitial fullness, enlarged heart are present. No pulmonary embolism is appreciated. ASSESSMENT: 1. Acute hypoxic respiratory failure. 2. [id number]-wy-[id number] diastolic heart failure. 3. Morbid obesity. 4. Asthma with acute exacerbation, possible. 5. Chronic kidney disease, stage 3. 6. Pulmonary infiltrate, likely representing minimal atelectasis, community- acquired pneumonia cannot be excluded. DISCUSSION AND PLAN: The patient is doing fine at this point from a respiratory standpoint. Agree with a single dose of Lasix as I do think she is a touch volume up. We will convert her Levaquin over to p.o. She can complete a 7-day course of this medication. We will continue our nebulized medication. I will add long- acting Dulera while she is in the hospital, but I do not think that systemic steroids are warranted given her mild respiratory changes. More than likely we are dealing with a slight volume overload event superimposed on top of sick lungs, and deconditioning. Pulmonary will continue to follow for the time being. however, when she is off oxygen, she will likely be stable for transition to home. She will ultimately require repeat CT of the chest in 6 weeks to verify this infiltrate resolves. If it does not, outpatient Pulmonary consultation will need to be considered for bronchoscopy. 70 minutes have been devoted to this patient in various activities. I personally reviewed all imaging studies and laboratory data noted within this document. For fifty percent of this time, I was interacting with the patient at the bedside or coordinating care with the care team. For the remainder of the time I was immediately available to the patient in the hospital unit. Job ID: [id number] HANNAH
[2018-11-22] MEDS: Mometasone/Formoterol 120 PUFF INHALER INH SCH ×2 (07:08→18:31)
[2018-11-22] MEDS: Famotidine 20 MG TAB PO SCH (09:16)
[2018-11-22] MEDS: Glimepiride 1 MG TAB PO SCH (09:16)
[2018-11-22] MEDS: Calcitriol 0.25 MCG CAP PO SCH (09:16)
[2018-11-22] MEDS: hydrALAZINE 25 MG TAB PO SCH ×3 (09:16→19:07)
[2018-11-22] MEDS: Amlodipine 5 MG TAB PO SCH (09:17)
[2018-11-22] MEDS: Furosemide 20 MG TAB PO SCH ×2 (09:17→15:18)
[2018-11-22] MEDS: Heparin 5,000 UNITS/ML VIAL SC SCH ×2 (09:17→19:08)
[2018-11-22] MEDS: Allopurinol 100 MG TAB PO SCH (09:21)
[2018-11-22 10:37] LABS: #Basophils 0.1 thou/uL (0.0-0.2); #Eosinphils 0.2 thou/uL (0.0-0.7); #Lymphocytes 2.3 thou/uL (1.20-3.40); #Monocytes 0.9 thou/uL (0.11-0.59); #Neutrophils 5.9 thou/uL (1.40-6.50); %Basophils 0.6 % (0.0-1.0); %Eosinophils 2.4 % (0.0-10.0); %Lymphocytes 24.7 % (21.0-51.0); %Monocytes 9.2 % (0.0-10.0); %Neutrophils 63.3 % (42.0-75.0); Hemoglobin 10.8 g/dL (12.0-16.0); Mean Corpuscular HGB CONC 32.1 g/dL (32.0-36.0); Mean Corpuscular Hemoglobin 29.7 pg (27.0-31.0); Mean Corpuscular Volume 92.6 fL (78.0-98.0); Mean Platelet Volume 9.7 fL (7.4-10.4); Platelet Count 229 thou/uL (130-400); RBC Distribution Width 14.5 % (11.5-14.5); Red Blood Cell (RBC) Count 3.64 mill/uL (4.20-5.40); White Blood Cell (WBC) Count 9.2 thou/uL (4.8-10.8)
[2018-11-22 11:04] LABS: Anion Gap 14 mmol/L (10-20); BUN (Urea Nitrogen) 33 mg/dL (9.8-20.1); Calc. Creatinine Clearance 35 mL/min (70-130); Calcium 9.2 mg/dL (7.8-10.44); Carbon Dioxide 27 mmol/L (23-31); Chloride 106 mmol/L (98-107); Estimated GFR-MDRD 28; Glucose 129 mg/dL (83-110); Sodium 143 mmol/L (136-145)
--- NOTE | 2018-11-22 12:11 | PRG ---
DATE OF SERVICE: 11/22/2018 SUBJECTIVE: This morning, the patient is less short of breath. OBJECTIVE: VITAL SIGNS: Pulse ox 100% on 1 L, temperature 97, pulse 90, blood pressure 149/69, respiratory rate 22. CHEST: Decreased breath sounds. No wheezing. CARDIAC: Normal S1 and S2. No gallop. ABDOMEN: No masses. LABORATORY DATA: Creatinine 1.73. Otherwise, CBC unremarkable. IMPRESSION: Morbid obesity, asthma, chronic obstructive pulmonary disease, renal failure, diabetes. PLAN: Continue aggressive PT. Continue neb treatments. Supportive care. We will follow. Job ID: [id number]
--- NOTE | 2018-11-22 12:38 | PDOC.PN ---
- Subjective Encounter Start Date: 11/22/18 Encounter Start Time: 07:40 Pt seen for followup re: acute hypoxic respiratory failure. Feels better today. - Objective Resuscitation Status - Order Detail: 11/18/18 19:00 Resuscitation Status Routine Resuscitation Status: FULL: Full Resuscitation Discussed with: Patient Vital Signs & Weight: Vital Signs (12 hours) Temp Pulse Resp BP Pulse Ox 11/22/18 11:45 97.9 F 90 18 158/63 H 96 11/22/18 09:17 90 11/22/18 09:16 90 11/22/18 09:10 97.5 F L 90 22 H 149/69 H 100 11/22/18 07:08 84 16 11/22/18 07:01 95 11/22/18 07:00 84 16 11/22/18 04:00 98.9 F 51 L 18 163/69 H 98 11/22/18 00:57 81 14 96 Weight Weight 196 lb 14.4 oz I&O: 11/21/18 11/22/18 11/23/18 06:59 06:59 06:59 Intake Total 1140 1360 Output Total 200 Balance 1140 1160 Result Diagrams: 11/22/18 10:31 11/22/18 10:31 Additional Labs: Accuchecks 11/22/18 11/22/18 11/21/18 10:42 05:31 20:42 POC Glucose 128 H 97 104 11/21/18 17:01 POC Glucose 138 H Phys Exam - Physical Examination Obesity HEENT: moist MMs Neck: supple Respiratory: clear to auscultation bilateral Cardiovascular: RRR, no rub Gastrointestinal: non-tender Neurological: moves all 4 limbs Psychiatric: normal affect Dx/Plan (1) Acute respiratory failure with hypoxia Code(s): J96.01 - ACUTE RESPIRATORY FAILURE WITH HYPOXIA Status: Acute Comment: Significantly improved, secondary to a combination of pneumonia and diastolic CHF exacerbation. Continue furosemide and levofloxacin. (2) Acute on chronic diastolic CHF (congestive heart failure), NYHA class 3 Code(s): I50.33 - ACUTE ON CHRONIC DIASTOLIC (CONGESTIVE) HEART FAILURE Status : Acute Comment: Improving, continue furosemide. (3) Pneumonia Code(s): J18.9 - PNEUMONIA, UNSPECIFIED ORGANISM Status: Acute Comment: continue levofloxacin (4) DM type 2 (diabetes mellitus, type 2) Status: Chronic Comment: glimepiride dose decreased to 1 mg daily yesterday due to hypoglycemia (5) HTN (hypertension) Code(s): I10 - ESSENTIAL (PRIMARY) HYPERTENSION Status: Chronic Comment: monitor vital signs, titrate antihypertensives as needed - Plan * . Review of Systems - Review of Systems Respiratory: negative: Cough, Shortness of Breath, SOB with Excertion, Pleuritic Pain, Wheezing Cardiovascular: negative: chest pain, palpitations, orthopnea, paroxysmal nocturnal dyspnea, edema, light headedness Gastrointestinal: negative: Nausea, Vomiting, Abdominal Pain, Diarrhea, Constipation, Melena, Hematochezia - Medications/Allergies Allergies/Adverse Reactions: Allergies Allergy/AdvReac Type Severity Reaction Status Date / Time Penicillins Allergy Severe Rash Verified 11/18/18 20:39 Medications: Current Medications Acetaminophen (Tylenol) 650 mg PO Q4H PRN PRN Reason: Headache/Fever/Mild Pain (1-3) Last Admin: 11/20/18 22:51 Dose: 650 mg Acetaminophen (Tylenol) 650 mg [place] Q4H PRN PRN Reason: Headache/Fever/Mild Pain (1-3) Albuterol/Ipratropium (Duoneb) 3 ml NEB [id number] [facility] Last Admin: 11/22/18 07:00 Dose: 3 ml Albuterol/Ipratropium (Duoneb) 3 ml NEB [id number] PRN PRN Reason: SOB &/or Wheezing Last Admin: 11/20/18 22:32 Dose: 3 ml Allopurinol (Zyloprim) 100 mg PO DAILY [facility] Last Admin: 11/22/18 09:21 Dose: 100 mg Amlodipine Besylate (Norvasc) 5 mg PO DAILY [facility] Last Admin: 11/22/18 09:17 Dose: 5 mg Calcitriol (Rocaltrol) 0.25 mcg PO DAILY [facility] Last Admin: 11/22/18 09:16 Dose: 0.25 mcg Dextrose/Water (Dextrose 50%) 25 gm SLOW IVP PRN PRN PRN Reason: Hypoglycemia Famotidine (Pepcid) 20 mg PO DAILY [facility] Last Admin: 11/22/18 09:16 Dose: 20 mg Furosemide (Lasix) 20 mg PO 0900,1400 [facility] Last Admin: 11/22/18 09:17 Dose: 20 mg Glimepiride (Amaryl) 1 mg PO QAM-WM [facility] Last Admin: 11/22/18 09:16 Dose: 1 mg Glucagon (Glucagon) 1 mg IM PRN PRN PRN Reason: Hypoglycemia Guaifenesin/Dextromethorphan (Robitussin Dm) 15 ml PO Q4H PRN PRN Reason: Cough Last Admin: 11/21/18 08:56 Dose: 15 ml Heparin Sodium (Porcine) (Heparin) 5,000 units SC BID [facility] Last Admin: 11/22/18 09:17 Dose: 5,000 units Hydralazine HCl (Apresoline) 25 mg PO TID [facility] Last Admin: 11/22/18 09:16 Dose: 25 mg Dextrose/Water (D5w) 1,000 mls @ 0 mls/hr IV .Q0M PRN PRN Reason: Hypoglycemia Insulin Human Lispro (Humalog) 0 units SC .MILD SLIDING SCALE PRN PRN Reason: Mild Correctional Scale Last Admin: 11/19/18 18:10 Dose: 2 unit Insulin Human Lispro (Humalog) 0 units SC .BEDTIME SLIDING SC PRN PRN Reason: Bedtime Correctional Scale Levofloxacin (Levaquin) 250 mg PO 0600 [facility] Stop: 11/26/18 06:01 Last Admin: 11/22/18 05:31 Dose: 250 mg Metoprolol Succinate (Toprol Xl) 100 mg PO DAILY [facility] Last Admin: 11/22/18 09:17 Dose: 100 mg Mometasone Furoate/Formoterol Fumar (Dulera 100 Mcg/5 Mcg Inhaler) 2 puff INH BID-RT [facility] Last Admin: 11/22/18 07:08 Dose: 2 puff Ondansetron HCl (Zofran Odt) 4 mg PO Q6H PRN PRN Reason: Nausea/Vomiting Ondansetron HCl (Zofran) 4 mg IVP Q6H PRN PRN Reason: Nausea/Vomiting Pantoprazole Sodium (Protonix) 40 mg PO DAILY [facility] Last Admin: 11/22/18 09:17 Dose: 40 mg Senna/Docusate Sodium (Senokot S) 2 tab PO BID PRN PRN Reason: Constipation Simvastatin (Zocor) 40 mg PO HS [facility] Last Admin: 11/21/18 20:49 Dose: 40 mg
[2018-11-22] MEDS: Acetaminophen 325 MG TAB PO PRN (19:07)
[2018-11-22] MEDS: Simvastatin 40 MG TAB PO SCH (19:08)
[2018-11-23] MEDS: Mometasone/Formoterol 120 PUFF INHALER INH SCH (07:58)
[2018-11-23] MEDS: Glimepiride 1 MG TAB PO SCH (08:30)
[2018-11-23] MEDS: Allopurinol 100 MG TAB PO SCH (08:30)
[2018-11-23] MEDS: Amlodipine 5 MG TAB PO SCH (08:30)
[2018-11-23] MEDS: Calcitriol 0.25 MCG CAP PO SCH (08:31)
[2018-11-23] MEDS: Furosemide 20 MG TAB PO SCH ×2 (08:31→14:47)
[2018-11-23] MEDS: Famotidine 20 MG TAB PO SCH (08:31)
[2018-11-23] MEDS: hydrALAZINE 25 MG TAB PO SCH ×2 (08:31→15:38)
[2018-11-23] MEDS: Heparin 5,000 UNITS/ML VIAL SC SCH (08:31)
--- NOTE | 2018-11-23 11:50 | PRG ---
DATE OF SERVICE: 11/23/2018 SUBJECTIVE: This morning, the patient is doing better, she is less short of breath, less cough. OBJECTIVE: VITAL SIGNS: 94% saturations on 2 L, respiratory rate 16, temperature 97, pulse 79, blood pressure 150/68. CHEST: Decreased breath sounds. No wheezing. CARDIAC: Normal S1 and S2. No gallops. ABDOMEN: Soft. ASSESSMENT: Morbid obesity, congestive heart failure, possibly superimposed pneumonia. Disposition home. Follow up with Dr. Reynoso in the office. Job ID: [id number]
[2018-11-23] MEDS: HumaLOG 300 UNITS/3 ML VIAL SC PRN (12:17)
[2018-11-23] MEDS: Acetaminophen 325 MG TAB PO PRN (12:25)
--- NOTE | 2018-11-23 13:54 | PDOC.PN ---
- Subjective Encounter Start Date: 11/23/18 Encounter Start Time: 10:30 Subjective: pt up in bed no complains - Objective Resuscitation Status - Order Detail: 11/18/18 19:00 Resuscitation Status Routine Resuscitation Status: FULL: Full Resuscitation Discussed with: Patient Vital Signs & Weight: Vital Signs (12 hours) Temp Pulse Resp BP Pulse Ox 11/23/18 13:12 72 16 11/23/18 11:25 97.9 F 79 16 152/68 H 94 L 11/23/18 08:31 99 11/23/18 08:25 98.1 F 99 18 120/57 L 93 L 11/23/18 07:58 82 16 11/23/18 07:45 82 16 11/23/18 03:10 93 L 11/23/18 03:05 97.8 F 79 20 135/62 90 L Weight Weight 191 lb 9.6 oz I&O: 11/22/18 11/23/18 11/24/18 06:59 06:59 06:59 Intake Total 1360 960 Output Total 200 900 Balance 1160 60 Result Diagrams: 11/22/18 10:31 11/22/18 10:31 Additional Labs: Accuchecks 11/23/18 11/23/18 11/22/18 11:07 05:44 20:28 POC Glucose 199 H 131 H 159 H 11/22/18 17:08 POC Glucose 128 H Phys Exam - Physical Examination Neck: no nodes, no JVD, supple, full ROM Respiratory: no wheezing, no rales, no rhonchi, wheezing present, clear to auscultation bilateral Cardiovascular: RRR, no significant murmur, no rub, gallop, irregular Gastrointestinal: soft, non-tender, no distention, positive bowel sounds Musculoskeletal: no edema, pulses present, edema present Dx/Plan (1) Acute respiratory failure with hypoxia Code(s): J96.01 - ACUTE RESPIRATORY FAILURE WITH HYPOXIA Status: Acute Comment: Significantly improved, secondary to a combination of pneumonia and diastolic CHF exacerbation. Continue furosemide and levofloxacin. (2) DM type 2 (diabetes mellitus, type 2) Status: Chronic Comment: glimepiride dose decreased to 1 mg daily yesterday due to hypoglycemia (3) HTN (hypertension) Code(s): I10 - ESSENTIAL (PRIMARY) HYPERTENSION Status: Chronic Comment: monitor vital signs, titrate antihypertensives as needed (4) Pneumonia Code(s): J18.9 - PNEUMONIA, UNSPECIFIED ORGANISM Status: Acute Comment: continue levofloxacin - Plan records reviewed pt henriquez not have afib per cardiology -: will continue levaquin for her pneumonia. -: will ask the nurse to walk her * . Review of Systems - Review of Systems Respiratory: negative: Cough, Dry, Shortness of Breath, Hemoptysis, SOB with Excertion, Pleuritic Pain, Sputum, Wheezing Cardiovascular: negative: chest pain, palpitations, orthopnea, paroxysmal nocturnal dyspnea, edema, light headedness, other Gastrointestinal: negative: Nausea, Vomiting, Abdominal Pain, Diarrhea, Constipation, Melena, Hematochezia, Other - Medications/Allergies Allergies/Adverse Reactions: Allergies Allergy/AdvReac Type Severity Reaction Status Date / Time Penicillins Allergy Severe Rash Verified 11/18/18 20:39 Medications: Current Medications Acetaminophen (Tylenol) 650 mg PO Q4H PRN PRN Reason: Headache/Fever/Mild Pain (1-3) Last Admin: 11/23/18 12:25 Dose: 650 mg Acetaminophen (Tylenol) 650 mg WA Q4H PRN PRN Reason: Headache/Fever/Mild Pain (1-3) Albuterol/Ipratropium (Duoneb) 3 ml NEB [id number] [facility] Last Admin: 11/23/18 13:12 Dose: 3 ml Albuterol/Ipratropium (Duoneb) 3 ml NEB [id number] PRN PRN Reason: SOB &/or Wheezing Last Admin: 11/20/18 22:32 Dose: 3 ml Allopurinol (Zyloprim) 100 mg PO DAILY [facility] Last Admin: 11/23/18 08:30 Dose: 100 mg Amlodipine Besylate (Norvasc) 5 mg PO DAILY [facility] Last Admin: 11/23/18 08:30 Dose: 5 mg Calcitriol (Rocaltrol) 0.25 mcg PO DAILY [facility] Last Admin: 11/23/18 08:31 Dose: 0.25 mcg Dextrose/Water (Dextrose 50%) 25 gm SLOW IVP PRN PRN PRN Reason: Hypoglycemia Famotidine (Pepcid) 20 mg PO DAILY [facility] Last Admin: 11/23/18 08:31 Dose: 20 mg Furosemide (Lasix) 20 mg PO 0900,1400 [facility] Last Admin: 11/23/18 08:31 Dose: 20 mg Glimepiride (Amaryl) 1 mg PO QAM-WM [facility] Last Admin: 11/23/18 08:30 Dose: 1 mg Glucagon (Glucagon) 1 mg IM PRN PRN PRN Reason: Hypoglycemia Guaifenesin/Dextromethorphan (Robitussin Dm) 15 ml PO Q4H PRN PRN Reason: Cough Last Admin: 11/21/18 08:56 Dose: 15 ml Heparin Sodium (Porcine) (Heparin) 5,000 units SC BID [facility] Last Admin: 11/23/18 08:31 Dose: 5,000 units Hydralazine HCl (Apresoline) 25 mg PO TID [facility] Last Admin: 11/23/18 08:31 Dose: 25 mg Dextrose/Water (D5w) 1,000 mls @ 0 mls/hr IV .Q0M PRN PRN Reason: Hypoglycemia Insulin Human Lispro (Humalog) 0 units SC .MILD SLIDING SCALE PRN PRN Reason: Mild Correctional Scale Last Admin: 11/23/18 12:17 Dose: 2 unit Insulin Human Lispro (Humalog) 0 units SC .BEDTIME SLIDING SC PRN PRN Reason: Bedtime Correctional Scale Levofloxacin (Levaquin) 250 mg PO 0600 [facility] Stop: 11/26/18 06:01 Last Admin: 11/23/18 05:01 Dose: 250 mg Metoprolol Succinate (Toprol Xl) 100 mg PO DAILY [facility] Last Admin: 11/23/18 08:31 Dose: 100 mg Mometasone Furoate/Formoterol Fumar (Dulera 100 Mcg/5 Mcg Inhaler) 2 puff INH BID-RT [facility] Last Admin: 11/23/18 07:58 Dose: 2 puff Ondansetron HCl (Zofran Odt) 4 mg PO Q6H PRN PRN Reason: Nausea/Vomiting Ondansetron HCl (Zofran) 4 mg IVP Q6H PRN PRN Reason: Nausea/Vomiting Pantoprazole Sodium (Protonix) 40 mg PO DAILY [facility] Last Admin: 11/23/18 08:31 Dose: 40 mg Senna/Docusate Sodium (Senokot S) 2 tab PO BID PRN PRN Reason: Constipation Simvastatin (Zocor) 40 mg PO HS [facility] Last Admin: 11/22/18 19:08 Dose: 40 mg
[2018-11-23 15:37] VITALS: BP 128/60; TEMP 98.1
== END 2018-11-23 17:04 | disposition home health service (06) | DRG 291 ==
LOC: ERS 14:44 → T4-B 20:20 → 2NO 11-19 09:42
PROVIDERS: ADMIT Emergency Medicine; ATTEND Emergency Medicine
DX: I13.0 Hypertensive heart and chronic kidney disease with heart failure and stage 1 through stage 4 chronic kidney disease, or unspecified chronic kidney disease (principal); J15.9 Unspecified bacterial pneumonia; J96.01 Acute respiratory failure with hypoxia; I50.33 Acute on chronic diastolic (congestive) heart failure; J45.901 Unspecified asthma with (acute) exacerbation; N18.3 Chronic kidney disease, stage 3 (moderate); E11.22 Type 2 diabetes mellitus with diabetic chronic kidney disease; E78.5 Hyperlipidemia, unspecified; I25.10 Atherosclerotic heart disease of native coronary artery without angina pectoris; E11.649 Type 2 diabetes mellitus with hypoglycemia without coma; I48.91 Unspecified atrial fibrillation; M10.9 Gout, unspecified; E66.01 Morbid (severe) obesity due to excess calories; Z79.84 Long term (current) use of oral hypoglycemic drugs; Z95.1 Presence of aortocoronary bypass graft; Z87.891 Personal history of nicotine dependence; Z88.0 Allergy status to penicillin; Z79.899 Other long term (current) drug therapy; Z68.31 Body mass index [BMI] 31.0-31.9, adult
CPT/HCPCS: 36415; 36416; 51701; 71045; 71275; 80048; 80053; 81003; 81015; 82550; 82553; 82805; 83605; 83690; 83735; 83880; 84484; 85025; 85379; 87040; 87070; 87086; 87205; 93005; 93306; 93798; 94640; 94644; 96361; 96365; 96366; 96368; 96375; A4353; J1100; J1644; J1650; J1940; J1956; J3475; J7611; J7620; Q9966

== ENCOUNTER 2018-12-07 09:07 | Emergency (ER) | payer MEDICARE, MEDICAID ==
[2018-12-07 10:03] LABS: #Basophils 0.1 thou/uL (0.0-0.2); #Eosinphils 0.2 thou/uL (0.0-0.7); #Lymphocytes 1.8 thou/uL (1.20-3.40); #Monocytes 0.5 thou/uL (0.11-0.59); #Neutrophils 5.6 thou/uL (1.40-6.50); %Basophils 0.7 % (0.0-1.0); %Eosinophils 2.7 % (0.0-10.0); %Lymphocytes 22.2 % (21.0-51.0); %Monocytes 6.5 % (0.0-10.0); %Neutrophils 67.9 % (42.0-75.0); Hemoglobin 11.2 g/dL (12.0-16.0); Mean Corpuscular Hemoglobin 29.8 pg (27.0-31.0); Mean Corpuscular Volume 93.1 fL (78.0-98.0); Mean Platelet Volume 10.1 fL (7.4-10.4); Platelet Count 183 thou/uL (130-400); RBC Distribution Width 15.2 % (11.5-14.5); Red Blood Cell (RBC) Count 3.77 mill/uL (4.20-5.40); White Blood Cell (WBC) Count 8.2 thou/uL (4.8-10.8)
[2018-12-07 10:20] LABS: ALT (SGPT) 9 U/L (8-55); AST (SGOT) 10 U/L (5-34); Albumin 3.7 g/dL (3.4-4.8); Alkaline Phosphatase 69 U/L (40-150); Anion Gap 15 mmol/L (10-20); BUN (Urea Nitrogen) 31 mg/dL (9.8-20.1); Bilirubin, Total 0.4 mg/dL (0.2-1.2); Calc. Creatinine Clearance 0 mL/min (70-130); Calcium 9.4 mg/dL (7.8-10.44); Carbon Dioxide 24 mmol/L (23-31); Chloride 106 mmol/L (98-107); Estimated GFR-MDRD 31; Globulin 2.9 g/dL (2.4-3.5); Glucose 142 mg/dL (83-110); Potassium 4.2 mmol/L (3.5-5.1); Protein, Total 6.6 g/dL (6.0-8.3); Sodium 141 mmol/L (136-145)
--- NOTE | 2018-12-07 10:35 | RAD ---
PORTABLE CHEST 1 VIEW: DATE: 12/07/2018. TIME: 9:19 a.m. HISTORY: Cough, shortness of breath. FINDINGS: Comparison is made to the exam of 11/20/2018. The heart is enlarged. Changes of median sternotomy are again seen. The lungs are well expanded wit hout lobar consolidation, pneumothoraces, lisa pulmonary edema, or pleural effusions. IMPRESSION: No acute process. POS: HUGO
[2018-12-07] MEDS ORDERED: predniSONE 20 MG TAB ONE (12:01)
== END 2018-12-07 11:58 | disposition home or self-care (01) ==
LOC: ERS 09:07
DX: R05 Cough (principal); E78.00 Pure hypercholesterolemia, unspecified; E11.22 Type 2 diabetes mellitus with diabetic chronic kidney disease; I12.9 Hypertensive chronic kidney disease with stage 1 through stage 4 chronic kidney disease, or unspecified chronic kidney disease; N18.9 Chronic kidney disease, unspecified; Z87.891 Personal history of nicotine dependence; Z79.899 Other long term (current) drug therapy; Z79.82 Long term (current) use of aspirin
CPT/HCPCS: 36415; 71045; 80053; 83880; 84484; 85025; 93005; J7512; J7620

== ENCOUNTER 2019-08-14 16:02 | Outpatient (CLI) | payer MEDICARE, MEDICAID ==
--- NOTE | 2019-08-14 16:32 | RAD ---
EXAM: Two views chest PROVIDED CLINICAL HISTORY: Shortness of breath. COMPARISON: 12/07/2018 FINDINGS: Postsurgical changes related to CABG are again noted. Cardiac silhouette is mildly enlarged. Pulmonar y vasculature is within normal limits. Mild linear and patchy densities are seen in the lateral aspect right lung base which could be related to volume loss versus developing pneumonia. Follow-up e xamination is recommended. There is questionable nodular density overlying the lateral left midlung zone, but this may be artifactual. This can also be reevaluated on follow-up exam. Degenerative mahan es are again seen in the spine. Osteopenia is noted. Vascular calcifications are seen in the thoracic and visualized abdominal aorta. IMPRESSION: Minimal linear and patchy densities lateral right midlung zone which may be related to volume loss or developing pneumonia. This was not seen on prior study. In addition, a questionable nodular density overlies the lateral left mid lung zone which was not seen on prior exam. Follow-up examinati on is recommended to ensure resolution of these findings.
== END 2019-08-14 16:03 | disposition home or self-care (01) ==
LOC: BICRAD 16:02
PROVIDERS: ATTEND Family Medicine
DX: R06.02 Shortness of breath (principal); J98.4 Other disorders of lung
CPT/HCPCS: 71046

== ENCOUNTER 2019-08-25 10:39 | Outpatient (CLI) | payer MEDICARE, MEDICAID ==
--- NOTE | 2019-08-25 11:29 | BD ---
BONE DENSITOMETRY USING DEXA: Date: 08/25/2019 HISTORY: Postmenopausal screening for osteoporosis. Localized osteoporosis. FINDINGS: Lumbar Spine: BMD (g/cm2) L1 0.697 T-Score: -2.7 Z-Score: -0.2 L2 0.633 T-Score: -3.6 Z-Score: -0.8 L3 0.593 T-Score: -4.5 Z-Score: -1.5 L4 0.766 T-Score: -2.7 Z-Score: 0.3 L1-L4 0.672 T-Score: -3.4 Z-Score: -0.6 Femoral Neck: 0.478 T-Score: -3.3 Z-Score: -0.9 Total Femur: 0.612 T-Score: -2.7 Z-Score: -0.4 IMPRESSION: Osteoporosis. POS: TPC
--- NOTE | 2019-08-25 11:47 | MMO ---
Bilateral MAMMO Bilat Screen [facility]CHARLINE. CLINICAL HISTORY: Patient is 83 years old and is seen for screening. VIEWS: The views performed were: . FILMS COMPARED: The present examination has been compared to a prior imaging study performed at [facility] on 11/09/2016. This study has been interpreted with the assistance of computer-aided detection. MAMMOGRAM FINDINGS: There are scattered fibroglandular densities. There are stable benign appearing calcifications seen in both breasts. There are no suspicious masses, suspicious calcifications, or new areas of architectural distortion. IMPRESSION: THERE IS NO MAMMOGRAPHIC EVIDENCE OF MALIGNANCY. A ROUTINE FOLLOW-UP MAMMOGRAM IN 1 YEAR IS RECOMMENDED. THE RESULTS OF THIS EXAM WERE SENT TO THE PATIENT. ACR BI-RADS Category 2 - Benign finding MAMMOGRAPHY NOTE: 1. A negative mammogram report should not delay a biopsy if a dominant of clinically suspicious mass is present. 2. Approximately 10% to 15% of breast cancers are not detected by mammography. 3. Adenosis and dense breasts may obscure an underlying neoplasm. Reported by: TOYIN WEBB MD Electonically Signed: [id number]
== END 2019-08-25 10:40 | disposition home or self-care (01) ==
LOC: BICMAMMO 10:39
PROVIDERS: ATTEND Family Medicine
DX: Z12.31 Encounter for screening mammogram for malignant neoplasm of breast (principal); M81.6 Localized osteoporosis [Lequesne]; M81.0 Age-related osteoporosis without current pathological fracture
CPT/HCPCS: 77063; 77067; 77080

== ENCOUNTER 2019-08-31 18:58 | Observation (INO) | payer MEDICARE, MEDICAID ==
[2019-08-31 19:48] LABS: #Eosinphils 0.2 thou/uL (0.0-0.7); #Lymphocytes 1.6 thou/uL (1.20-3.40); #Monocytes 0.7 thou/uL (0.11-0.59); #Neutrophils 4.1 thou/uL (1.40-6.50); %Basophils 0.7 % (0.0-1.0); %Monocytes 10.8 % (0.0-10.0); %Neutrophils 61.6 % (42.0-75.0); Hemoglobin 12.4 g/dL (12.0-16.0); Mean Corpuscular HGB CONC 31.9 g/dL (32.0-36.0); Mean Corpuscular Hemoglobin 29.9 pg (27.0-31.0); Mean Corpuscular Volume 93.7 fL (78.0-98.0); Mean Platelet Volume 10.3 fL (7.4-10.4); Platelet Count 201 thou/uL (130-400); RBC Distribution Width 14.3 % (11.5-14.5); Red Blood Cell (RBC) Count 4.13 mill/uL (4.20-5.40); White Blood Cell (WBC) Count 6.7 thou/uL (4.8-10.8)
--- NOTE | 2019-08-31 20:01 | RAD ---
Portable frontal chest radiograph: 08/31/2019 COMPARISON: 08/14/2019 HISTORY: Cough FINDINGS: There is a rounded area of nonspecific increased density in the right infrahilar region, ne w when compared to the prior exam. Midline sternotomy wires are noted. There is mild pulmonary vascular congestion. No lobar consolidation, pneumothorax, or large volume pleural effusion. IMPRESSION: Rounded masslike opacity in the right infrahilar region. Etiology is uncertain as this ap pears to represent a new finding when compared to the prior study performed at approximately 2 weeks prior. Thus, this may reflect artifact, volume loss, or infiltrate. A mass is a much less likel y possibility. Recommend follow-up 2 view examination of the chest for further assessment CODE T
[2019-08-31 20:09] LABS: ALT (SGPT) 10 U/L (8-55); AST (SGOT) 16 U/L (5-34); Alkaline Phosphatase 72 U/L (40-110); Anion Gap 11 mmol/L (10-20); BUN (Urea Nitrogen) 28 mg/dL (9.8-20.1); Bilirubin, Total 0.4 mg/dL (0.2-1.2); Calc. Creatinine Clearance 0 mL/min (70-130); Calcium 9.6 mg/dL (7.8-10.44); Carbon Dioxide 29 mmol/L (23-31); Chloride 106 mmol/L (98-107); Estimated GFR-MDRD 33; Globulin 2.9 g/dL (2.4-3.5); Glucose 60 mg/dL (83-110); Potassium 4.2 mmol/L (3.5-5.1); Protein, Total 6.9 g/dL (6.0-8.3); Sodium 142 mmol/L (136-145)
[2019-08-31] MEDS ORDERED: Cefepime 2 GM VIAL ONE (21:23)
[2019-08-31] MEDS ORDERED: Azithromycin 500 MG VIAL ONE (21:23)
[2019-08-31] MEDS ORDERED: Sodium Chloride 0.9% 100 ML ONE (21:24)
[2019-09-01 01:58] VITALS: BMI 34.8
[2019-09-01] MEDS ORDERED: hydrALAZINE 20 MG/ML VIAL SLOW IVP PRN (02:48)
[2019-09-01] MEDS: Diabetic Tussin 200 MG/10 ML UDCUP PO PRN ×3 (03:32→14:06)
--- NOTE | 2019-09-01 05:55 | HP ---
PRIMARY CARE: Dr. Deutsch. PRIMARY ADMINISTRATION PHYSICIAN: Dr. Durán. PRIMARY PRINTING PLATE MAKER: Dr. Palomino. CHIEF COMPLAINT: Shortness of breath with cough. HISTORY OF PRESENT ILLNESS: The patient is an 83-year-old female with diabetes mellitus type 2, asthma, coronary artery disease, and chronic diastolic heart failure, presented to the emergency room with above complaints. The patient presented to the emergency room with complaints of cough along with shortness of breath that has been ongoing for last few days. Her symptoms got worse over the past 24 hours. She had cough that was productive of thick whitish phlegm. She also had nausea without any vomiting. She complains of shortness of breath even when she is resting. She denies any sick contacts, fever, or chills. No recent immobilization travel reported. She denies any chest pain, palpitations, orthopnea, paroxysmal nocturnal dyspnea, or lower extremity swelling. Her vital signs in the emergency room showed temperature 98.1, respirations of 18, pulse of 70 with a blood pressure 214/88, and O2 saturation 94% on room air. Her chest x-ray was consistent with pneumonia. She received cefepime along with azithromycin in the emergency room. At this time, the patient continues to have shortness of breath. Her O2 saturation after arrival to her room was 90% on room air. She is currently on 2 L nasal cannula. PAST MEDICAL HISTORY: 1. Chronic diastolic heart failure. 2. Coronary artery disease, status post CABG. 3. Hypertension. 4. Diabetes mellitus type 2. 5. CKD stage 3. 6. Asthma. PAST SURGICAL HISTORY: 1. Coronary artery bypass grafting. 2. Back surgery. 3. Cataract surgery. ALLERGIES: THE PATIENT IS ALLERGIC TO PENICILLIN. CURRENT HOME MEDICATIONS: 1. Toprol-XL 100 mg daily. 2. Simvastatin 40 mg at bedtime. 3. Omeprazole 40 mg daily. 4. Hydralazine 50 mg 3 times a day. 5. Glimepiride 1 mg b.i.d. 6. Calcitriol 0.25 mcg daily. 7. Allopurinol 100 mg daily. 8. Tylenol No. 3 as needed. 9. Ventolin inhaler as needed. SOCIAL HISTORY: The patient currently lives at home with her family. She denies current use of smoking, alcohol, or drug use. She is . She is full code. Her daughter is the decision maker. FAMILY HISTORY: Positive for heart disease. REVIEW OF SYSTEMS: All other review of systems was reviewed and was found negative. PHYSICAL EXAMINATION: VITAL SIGNS: As discussed above. GENERAL: An 83-year-old female in mild to moderate respiratory distress, able to complete short phrases. HEENT: Head, atraumatic and normocephalic. Sclerae anicteric. Moist mucous membranes. No oral lesion. NECK: Supple. No JVD appreciated. No carotid bruit. No stridor. LUNGS: Showed accessory muscle use with scattered rhonchi with expiratory wheezing. There were rales on the right side. HEART: S1 and S2 present. Regular. No rubs or gallops. ABDOMEN: Soft. Bowel sounds present. No rebound or guarding. No costovertebral angle tenderness. EXTREMITIES: No edema or calf tenderness. NEUROLOGIC: Grossly nonfocal. Moves all 4 extremities. Power was 5/5 in all extremities. PSYCHIATRIC: The patient is alert, awake, and oriented x3. SKIN: Warm and dry. LYMPH NODES: No palpable lymph nodes in the neck. PERIPHERAL/VASCULAR: Radial pulses palpable bilaterally. MUSCULOSKELETAL: No joint swelling or tenderness. LABORATORY DATA: EKG by my review showed left axis deviation with sinus rhythm and occasional PVCs. Chemistry showed sodium of 142, potassium 4.2, chloride 106, bicarb 29, BUN 28, creatinine 1.49. LFTs in normal range. BNP was 634. CBC showed WBC 6.7 with hemoglobin 12.4, hematocrit 38.7, platelet of 201. Chest x-ray by my review showed possible right-sided infiltrate. Influenza testing was negative. IMPRESSION: 1. Acute hypoxic respiratory failure secondary to community-acquired pneumonia, suspected gram-negative. 2. Chronic diastolic heart failure, questionable decompensated. 3. Diabetes mellitus type 2 with hypoglycemia. 4. Hypertension. 5. Chronic kidney disease, stage 3. 6. Hyperlipidemia. 7. Asthma with asthma exacerbation. 8. Coronary artery disease, status post coronary artery bypass grafting. 9. Obesity with a BMI of 34.8. PLAN: O2 supplementation, Nebs, IV Cefepime/Azithromycin, PA/Lat CXR, Resume home meds Insulin sliding scale, Hold Glimepiride, Hold steroids for now, Vitals Q4h The patient and the family understands the plan of care. The patient is Hungarian speaking only. Job ID: [id number] [facility]
[2019-09-01] MEDS ORDERED: Senokot S 8.6-50 MG TAB PO PRN (05:56)
[2019-09-01] MEDS ORDERED: Calcium Carbonate 500 MG ChewTAB PO PRN (05:56)
[2019-09-01] MEDS ORDERED: Insulin Regular 300 UNITS/3 ML VIAL SC PRN ×2 (05:56)
[2019-09-01] MEDS ORDERED: Acetaminophen 325 MG TAB PO PRN (05:56)
[2019-09-01] MEDS ORDERED: Ondansetron ODT 4 MG TAB PO PRN (05:56)
[2019-09-01] MEDS ORDERED: Ondansetron PF 4 MG/2 ML Vial IVP PRN (05:56)
[2019-09-01] MEDS ORDERED: Acetaminophen/Codeine 30-300mg Tablet PO PRN (06:09)
[2019-09-01] MEDS ORDERED: PROVENTIL INHALER 6.7 G (200 INHALATIONS) INH PRN (06:09)
[2019-09-01] MEDS: hydrALAZINE 25 MG TAB PO SCH ×3 (08:14→20:29)
[2019-09-01] MEDS: Saccharomyces boulardii 250 MG CAP PO SCH (08:14)
[2019-09-01] MEDS: Allopurinol 100 MG TAB PO SCH (08:14)
[2019-09-01] MEDS: guaiFENesin ER 600 MG TAB PO SCH ×2 (08:14→20:29)
[2019-09-01] MEDS: Calcitriol 0.25 MCG CAP PO SCH (08:14)
[2019-09-01] MEDS: Enoxaparin Sodium 30 MG/0.3 ML SYRINGE SC SCH (08:15)
[2019-09-01] MEDS ORDERED: Cefepime 2 GM in Sodium Chloride 0.9% 100 ML IVPB SCH ×2 (09:00→22:00)
[2019-09-01] MEDS ORDERED: hydrALAZINE 25 MG TAB PO SCH (09:00)
[2019-09-01] MEDS ORDERED: Famotidine 20 MG TAB PO SCH (09:00)
--- NOTE | 2019-09-01 10:55 | RAD ---
2 views of the chest: 09/01/2019 COMPARISON: 2 view examination of the chest 08/14/2019, frontal radiograph chest 08/31/2019 HISTORY: Evaluate possible abnormality in the right hilar region FINDINGS: Midline sternotomy wires are present. Heart and mediastinal contours are stable. There is m ild prominence in the right hilar region, less conspicuous than on the recent portable chest radiograph. This is similar in appearance when compared to prior chest radiographs dating back to 10/23, consistent with vascular prominence. No pneumothorax or pleural fluid. No focal consolidation or alveolar edema. Stable diffuse increased linear interstitial density. There is ather osclerotic calcification of the abdominal aorta. IMPRESSION: No acute findings. Chronic findings as described above. The area of concern on recent por table chest radiograph represents vascular prominence when compared to prior imaging.
--- NOTE | 2019-09-01 11:27 | PDOC.HOSPP ---
- Subjective Encounter Date: 09/01/19 Encounter Time: 11:25 Subjective: comfortable, no sob - Objective Vital Signs & Weight: Vital Signs (12 hours) Temp Pulse Resp BP BP Pulse Ox 09/01/19 11:13 97.9 F 67 24 H 150/70 H 96 09/01/19 11:12 89 20 09/01/19 09:39 77 146/77 H 09/01/19 08:14 77 180/70 H 09/01/19 07:35 98.7 F 77 32 H 180/70 H 94 L 09/01/19 06:37 70 16 100 09/01/19 05:00 128/76 09/01/19 03:48 98.1 F 77 18 175/81 H 97 09/01/19 03:32 75 182/83 H 09/01/19 03:15 96 09/01/19 03:14 71 18 96 09/01/19 01:30 98.1 F 73 22 H 194/76 H 90 L Weight Weight 178 lb 3.2 oz I&O: 08/31/19 09/01/19 09/02/19 06:59 06:59 06:59 Intake Total 10 Balance 10 Result Diagrams: 08/31/19 19:37 08/31/19 19:37 Additional Labs: Accuchecks 09/01/19 09/01/19 05:47 05:04 POC Glucose 138 H 66 L Hospitalist ROS - Medication Medications: Active Medications Generic Name Dose Route Start Last Admin Trade Name Freq PRN Reason Stop Dose Admin Albuterol/Ipratropium 3 ml 09/01/19 06:30 09/01/19 11:12 Duoneb NEB 3 ml [id number] MARGARITO Administration Albuterol/Ipratropium 3 ml 09/01/19 02:49 09/01/19 03:14 Duoneb NEB 3 ml [id number] PRN Administration SOB &/or Wheezing Allopurinol 100 mg 09/01/19 09:00 09/01/19 08:14 Zyloprim PO 100 mg DAILY MARGARITO Administration Calcitriol 0.25 mcg 09/01/19 09:00 09/01/19 08:14 Rocaltrol PO 0.25 mcg DAILY MARGARITO Administration Enoxaparin Sodium 30 mg 09/01/19 09:00 09/01/19 08:15 Lovenox SC 30 mg 0900 MARGARITO Administration Guaifenesin 600 mg 09/01/19 09:00 09/01/19 08:14 Mucinex PO 600 mg Q12HR MARGARITO Administration Guaifenesin 200 mg 09/01/19 02:48 09/01/19 08:14 Robitussin Sf PO 200 mg Q4H PRN Administration Cough Hydralazine HCl 10 mg 09/01/19 02:48 09/01/19 03:32 Apresoline SLOW IVP 10 mg Q4H PRN Administration SBP Greater Than 180 Hydralazine HCl 50 mg 09/01/19 09:00 09/01/19 08:14 Apresoline PO 50 mg TID MARGARITO Administration Metoprolol Succinate 100 mg 09/01/19 09:00 09/01/19 08:14 Toprol Xl PO 100 mg DAILY MARGARITO Administration Pantoprazole Sodium 40 mg 09/01/19 09:00 09/01/19 08:14 Protonix PO 40 mg DAILY MARGARITO Administration Saccharomyces Boulardii 250 mg 09/01/19 09:00 09/01/19 08:14 Florastor PO 250 mg DAILY MARGARITO Administration - Exam General Appearance: awake alert Neck: no JVD Heart: RRR, no murmur Respiratory - other findings: expiratory wheezes Gastrointestinal: soft, normal bowel sounds Skin: no rashes Hosp A/P (1) Chronic diastolic HF (heart failure) Code(s): I50.32 - CHRONIC DIASTOLIC (CONGESTIVE) HEART FAILURE Status: Acute (2) Asthma exacerbation, mild Code(s): J45.901 - UNSPECIFIED ASTHMA WITH (ACUTE) EXACERBATION Status: Acute (3) DM type 2 (diabetes mellitus, type 2) Status: Chronic Qualifiers: Diabetes mellitus mcc insulin use: without marine oil terminal superintendent use Diabetes mellitus complication status: with kidney complications Diabetes mellitus complication detail: with chronic kidney disease Chronic kidney disease stage : stage 3 (moderate) Qualified Code(s): E11.22 - Type 2 diabetes mellitus with diabetic chronic kidney disease; N18.3 - Chronic kidney disease, stage 3 ( moderate) (4) HTN (hypertension) Code(s): I10 - ESSENTIAL (PRIMARY) HYPERTENSION Status: Chronic Qualifiers: Hypertension type: essential hypertension Qualified Code(s): I10 - Essential (primary) hypertension - Plan RA sat in ED was 95%, obtain O2 sat on RA, DC O2 if apprpriate CXR no PNA- DC iv antibx nebs q6h add dulera
--- NOTE | 2019-09-01 15:30 | PDOC.EVN ---
Event Note - Event Note Event Note: O2 sat RA 96%. lungs remakably improved, suspect home in AM on dulera plus albuteral inhaler
[2019-09-01] MEDS: Mometasone/Formoterol 120 PUFF INHALER INH SCH (17:54)
[2019-09-01] MEDS ORDERED: Atorvastatin Calcium 20 MG TAB PO SCH (21:00)
[2019-09-01] MEDS ORDERED: Azithromycin 500 MG in Sodium Chloride 0.9% 250 ML 250 ML IVPB SCH (23:00)
[2019-09-02] MEDS: Diabetic Tussin 200 MG/10 ML UDCUP PO PRN ×3 (02:07→14:35)
[2019-09-02 06:07] LABS: #Eosinphils 0.1 thou/uL (0.0-0.7); #Lymphocytes 1.7 thou/uL (1.20-3.40); #Monocytes 0.9 thou/uL (0.11-0.59); #Neutrophils 4.5 thou/uL (1.40-6.50); %Basophils 0.1 % (0.0-1.0); %Eosinophils 1.1 % (0.0-10.0); %Lymphocytes 23.5 % (21.0-51.0); %Monocytes 12.2 % (0.0-10.0); %Neutrophils 63.2 % (42.0-75.0); Hemoglobin 11.6 g/dL (12.0-16.0); Mean Corpuscular Hemoglobin 29.1 pg (27.0-31.0); Mean Corpuscular Volume 93.8 fL (78.0-98.0); Mean Platelet Volume 10.9 fL (7.4-10.4); Platelet Count 184 thou/uL (130-400); RBC Distribution Width 14.5 % (11.5-14.5); White Blood Cell (WBC) Count 7.1 thou/uL (4.8-10.8)
[2019-09-02 06:26] LABS: ALT (SGPT) 10 U/L (8-55); AST (SGOT) 15 U/L (5-34); Albumin 3.5 g/dL (3.4-4.8); Alkaline Phosphatase 64 U/L (40-110); Anion Gap 11 mmol/L (10-20); BUN (Urea Nitrogen) 25 mg/dL (9.8-20.1); Bilirubin, Total 0.4 mg/dL (0.2-1.2); Calc. Creatinine Clearance 39 mL/min (70-130); Carbon Dioxide 28 mmol/L (23-31); Chloride 103 mmol/L (98-107); Estimated GFR-MDRD 36; Globulin 2.6 g/dL (2.4-3.5); Glucose 114 mg/dL (83-110); Potassium 4.4 mmol/L (3.5-5.1); Protein, Total 6.1 g/dL (6.0-8.3); Sodium 138 mmol/L (136-145)
[2019-09-02] MEDS: Mometasone/Formoterol 120 PUFF INHALER INH SCH (07:08)
[2019-09-02] MEDS: Allopurinol 100 MG TAB PO SCH (08:27)
[2019-09-02] MEDS: Saccharomyces boulardii 250 MG CAP PO SCH (08:27)
[2019-09-02] MEDS: hydrALAZINE 25 MG TAB PO SCH ×2 (08:27→14:33)
[2019-09-02] MEDS: guaiFENesin ER 600 MG TAB PO SCH (08:27)
[2019-09-02] MEDS: Enoxaparin Sodium 30 MG/0.3 ML SYRINGE SC SCH (08:27)
[2019-09-02] MEDS: Calcitriol 0.25 MCG CAP PO SCH (08:27)
[2019-09-02] MEDS ORDERED: predniSONE 5 MG TAB PO SCH (09:45)
[2019-09-02] MEDS ORDERED: Cefdinir 300 MG CAP PO SCH (13:15)
[2019-09-02] MEDS ORDERED: Acetaminophen/Codeine 30-300mg Tablet PO SCH (13:15)
[2019-09-02 14:36] VITALS: BP 104/54
[2019-09-02 15:23] VITALS: TEMP 99
--- NOTE | 2019-09-02 19:21 | DIS ---
DATE OF ADMISSION: 08/31/2019 DATE OF DISCHARGE: 09/02/2019 DISCHARGE DISPOSITION: Home. FOLLOWUP: Follow up with primary care physician, Dr. Deutsch in 3 to 4 days. The patient was seen on the day of discharge. Denies any new complaints. Shortness of breath has significantly improved. The patient was advised to follow up with Dr. Durán in 1 to 2 weeks. DISCHARGE MEDICATIONS: 1. Omnicef 300 mg daily for next 4 days. 2. Mucinex twice daily. 3. All other home medications were left unchanged. BRIEF HOSPITAL COURSE: The patient is an 83-year-old female with diabetes mellitus type 2, asthma, coronary artery disease, and chronic diastolic heart failure, presented to the hospital with shortness of breath along with intractable cough. Workup was consistent with acute hypoxic respiratory failure, suspected due to community-acquired pneumonia. Next morning she had a chest x-ray, PA and lateral, that was negative for infiltrate. Symptoms have significantly improved. She appears stable for discharge. FINAL DIAGNOSES: 1. Acute hypoxic respiratory failure secondary to asthma exacerbation/acute bronchitis. Pneumonia ruled out. 2. Chronic diastolic heart failure appears to be compensated. 3. Diabetes mellitus type 2 with hypoglycemia. The patient was advised to monitor blood sugars closely and to hold glimepiride if the blood sugars are low. 4. Hypertension. 5. Chronic kidney disease, stage 3. 6. Hyperlipidemia. 7. Coronary artery disease status post coronary artery bypass grafting. 8. Obesity with a BMI of 34.8. 9. The patient understands the above plan of care. Job ID: [id number]
[2019-09-03] MEDS ORDERED: predniSONE 5 MG TAB PO SCH (08:00)
== END 2019-09-02 15:26 | disposition home or self-care (01) ==
LOC: ERS 18:58 → T4-A 22:41
PROVIDERS: ADMIT Internal Medicine; ATTEND Internal Medicine
DX: J45.901 Unspecified asthma with (acute) exacerbation (principal); J96.01 Acute respiratory failure with hypoxia; I50.32 Chronic diastolic (congestive) heart failure; E11.649 Type 2 diabetes mellitus with hypoglycemia without coma; I25.10 Atherosclerotic heart disease of native coronary artery without angina pectoris; E66.9 Obesity, unspecified; Z68.34 Body mass index [BMI] 34.0-34.9, adult; Z95.1 Presence of aortocoronary bypass graft; Z79.899 Other long term (current) drug therapy
CPT/HCPCS: 71045; 71046; 80053 ×2; 82962 ×2; 83880; 84484; 85025 ×2; 87804 ×2; 93005; 94640 ×5; 94664; 94760; 96365; 96367; 96372 ×2; 96375; 97139 ×6; 99285; G0378 ×4; 36415; 36416; J0360; J0456; J0692; J1650; J1815; J3490; J7512; J7620

== ENCOUNTER 2019-09-07 12:13 | Inpatient (IN) | payer MEDICARE, MEDICAID ==
--- NOTE | 2019-09-07 12:39 | RAD ---
EXAM: CHEST TWO VIEWS 09/07/2019 12:36 PM HISTORY: Shortness of breath COMPARISON: September 01, 2019 FINDINGS: Lungs: Chronic lung changes are stable Heart: Moderate cardiomegaly is stable Pulmonary Vessels: Mild pulmonary vascular prominence is stable. Costophrenic Angles: Clear. Pneumothorax: None. Osseous Structures: Midline sternotomy changes are stable. Multilevel spondylosis of the thoracic sp ine is stable. Diffuse osteopenia is stable. Additional Findings: None. IMPRESSION: No significant acute intrathoracic disease.
[2019-09-07 13:15] LABS: #Basophils 0.1 thou/uL (0.0-0.2); #Monocytes 0.4 thou/uL (0.11-0.59); #Neutrophils 3.8 thou/uL (1.40-6.50); %Basophils 1.1 % (0.0-1.0); %Eosinophils 0.4 % (0.0-10.0); %Lymphocytes 31.8 % (21.0-51.0); %Monocytes 6.6 % (0.0-10.0); %Neutrophils 60.2 % (42.0-75.0); Hemoglobin 13.5 g/dL (12.0-16.0); Mean Corpuscular Hemoglobin 30.1 pg (27.0-31.0); Mean Corpuscular Volume 93.9 fL (78.0-98.0); Mean Platelet Volume 10.7 fL (7.4-10.4); Platelet Count 169 thou/uL (130-400); RBC Distribution Width 14.1 % (11.5-14.5); Red Blood Cell (RBC) Count 4.48 mill/uL (4.20-5.40); White Blood Cell (WBC) Count 6.4 thou/uL (4.8-10.8)
[2019-09-07 13:33] LABS: ALT (SGPT) 16 U/L (8-55); AST (SGOT) 23 U/L (5-34); Albumin 4.1 g/dL (3.4-4.8); Alkaline Phosphatase 73 U/L (40-110); Anion Gap 10 mmol/L (10-20); BUN (Urea Nitrogen) 30 mg/dL (9.8-20.1); Bilirubin, Total 0.4 mg/dL (0.2-1.2); Calc. Creatinine Clearance 0 mL/min (70-130); Calcium 9.2 mg/dL (7.8-10.44); Carbon Dioxide 27 mmol/L (23-31); Chloride 109 mmol/L (98-107); Estimated GFR-MDRD 41; Globulin 3.1 g/dL (2.4-3.5); Potassium 3.9 mmol/L (3.5-5.1); Protein, Total 7.2 g/dL (6.0-8.3); Sodium 142 mmol/L (136-145)
[2019-09-07 13:36] LABS: Glucose 31 mg/dL (83-110)
[2019-09-07] MEDS ORDERED: Dextrose 50% Abboject 50 ML SYRINGE ONE (13:42)
[2019-09-07] MEDS ORDERED: Ondansetron ODT 4 MG TAB PO PRN (16:06)
[2019-09-07] MEDS ORDERED: HumaLOG 300 UNITS/3 ML VIAL SC PRN (16:06)
[2019-09-07] MEDS ORDERED: Senokot S 8.6-50 MG TAB PO PRN (16:06)
[2019-09-07] MEDS ORDERED: Loperamide HCl 2 MG CAP PO PRN (16:06)
[2019-09-07] MEDS ORDERED: Bisacodyl 5 MG TAB PO PRN (16:06)
[2019-09-07] MEDS ORDERED: Dextrose 50% Abboject 50 ML SYRINGE SLOW IVP PRN (16:06)
[2019-09-07] MEDS ORDERED: Guaifenesin DM 100-10/5 ML UDCUP PO PRN (16:06)
[2019-09-07] MEDS ORDERED: Ondansetron PF 4 MG/2 ML Vial IVP PRN (16:06)
[2019-09-07] MEDS ORDERED: Acetaminophen 325 MG TAB PO PRN (16:06)
[2019-09-07] MEDS ORDERED: Dextrose 5% in Water 1,000 ML IV PRN (16:06)
--- NOTE | 2019-09-07 17:12 | HP ---
PRIMARY CARE PHYSICIAN: Cris Deutsch MD REASON FOR ADMISSION: COPD exacerbation and hypoglycemia. HISTORY OF PRESENT ILLNESS: An 83-year-old female who lives at home with family and she has underlying history of diabetes mellitus type 2, on oral hypoglycemic agent; as well as history of COPD/asthma; coronary artery disease; chronic diastolic heart failure; and obesity; who was recently admitted in our hospital on August 31, 2019 and she was discharged home on September 02, 2019. After discharge, the patient was not feeling good. The patient was continuously complaining of shortness of breath. The patient was taking her diabetes medication, but she also had good appetite and she was eating normally as per family member. Main reason for coming to the hospital, because the patient was not feeling good and she was having more shortness of breath. In the emergency room, when they checked routine blood tests, she was found with hypoglycemia. The patient is only taking oral hypoglycemic agent at home. The patient did not miss any meal. The patient was also not symptomatic. Sometimes, the patient was intermittently feeling dizziness, but she never had any classic hypoglycemia symptoms. In the emergency room, the patient was overall stable. She was hypertensive. She was saturating normal on room air and she was having pursed lip breathing. We decided to keep this patient in the hospital for observation. REVIEW OF SYSTEMS: All review of systems reviewed and negative except as mentioned in HPI. PAST MEDICAL HISTORY: Chronic diastolic heart failure, hypertension, diabetes type 2, CKD stage 3, asthma, history of coronary artery disease with history of coronary artery bypass grafting. PAST SURGICAL HISTORY: CABG, back surgery, cataract surgery. PAST PSYCHIATRIC HISTORY: Reviewed and negative. ALLERGIES: PENICILLIN. CURRENT HOME MEDICATIONS: The patient was discharged home on following medications: 1. Allopurinol 100 mg daily. 2. Hydralazine 25 mg three times daily. 3. Calcitriol 0.25 mcg daily. 4. Glimepiride 1 mg twice daily. 5. Zocor 40 mg p.o. at bedtime. 6. Omeprazole 40 mg daily. 7. Amlodipine 5 mg daily. 8. Toprol-XL 100 mg daily. 9. Aspirin 81 mg daily. 10. Levaquin 250 mg daily. 11. Lasix 20 mg daily. 12. DuoNeb q.4 hourly. SOCIAL HISTORY: The patient lives at home with family. No history of tobacco, alcohol, or illicit drug abuse. She is . She has full code. Her daughter is surrogate decision maker. FAMILY HISTORY: Positive for heart disease among several family members. EMERGENCY ROOM COURSE: The patient was given dextrose 50. PHYSICAL EXAMINATION: VITAL SIGNS: On arrival, blood pressure 228/91, pulse 65, respiratory rate 24, temperature 97.5, saturation 95% on room air. Subsequently, blood pressure improved to 168/68. GENERAL: The patient is currently alert, awake, follows simple commands. No obvious acute distress on room air, having pursed lip breathing, mild respiratory distress. HEAD: Normocephalic, atraumatic. EYES: Pupils are round and reactive to light. Extraocular muscles intact. ENT: Oropharynx within normal limits. Moist mucous membranes. No oral lesion. No pharyngeal erythema. No exudate. NECK: Supple. No JVD. No meningeal signs of irritation. LUNGS: Air entry reduced bilaterally. Few bilateral and expiratory wheezing heard. No rales. CARDIAC: S1 and S2 regular. No murmur. No gallop. No rub. ABDOMEN: Soft, obesity noted, but no peritoneal sign. Bowel sounds present. EXTREMITIES: No edema. Good distal pulsation. NEUROLOGIC: Nonfocal examination. SIGNIFICANT LABORATORY DATA: EKG showing normal sinus rhythm, premature ventricular complexes noted, nonspecific ST-T changes. Chest x-ray based on my review; no acute cardiopulmonary process. CBC; WBC 6.4, hemoglobin 13.5, platelet 169. BMP; sodium 142, potassium 3.9, chloride 109, carbon dioxide 27, BUN 30, creatinine 1.25, glucose 31, calcium 9.2. LFT; AST 23, ALT 16, alkaline phosphatase 73, albumin 4.1. Subsequent glucose was 152. ASSESSMENT: 1. Acute on chronic, chronic obstructive pulmonary disease/asthma exacerbation, mild. 2. 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 3. Diabetes type 2. 4. Obesity with BMI 30 to 35. 5. Dyslipidemia. 6. Gastroesophageal reflux disease. 7. Hypertension with hypertensive urgency on admission, likely due to chronic obstructive pulmonary disease flare-up, has been resolved. 8. Gout. 9. Physical deconditioning. PLAN: 1. Observation to telemetry floor. We will continue with DuoNeb q.6 hourly and p.r.n. basis. 2. Pulmicort nebulization twice daily. 3. Solu-Medrol 40 mg IV q.8 hourly. 4. Hold on oral hypoglycemic agent. 5. Her home medication will be reconciled. 6. Mucinex 600 mg twice daily. 7. PT/OT evaluation and behavioral health case manager consultation for any discharge needs. 8. Because of her asthma/chronic obstructive pulmonary disease history, we will hold on beta-alicia therapy and we will consider calcium channel alicia like Cardizem long-acting upon discharge. We will start Cardizem CD 120 mg p.o. daily. 9. Deep venous thrombosis prophylaxis, Lovenox 40 mg subcu daily. 10. Gastrointestinal prophylaxis, Protonix 40 mg p.o. daily. CODE STATUS: The patient is full code. The patient's daughter is surrogate decision maker. DISPOSITION PLAN: Based on clinical course, expecting patient's stay in hospital 24 to 48 hours. Plan of care discussed with the family member at bedside in the emergency room. Job ID: [id number]
[2019-09-07] MEDS ORDERED: Budesonide 0.5 MG/2 ML NEB ONE (20:11)
[2019-09-07] MEDS: Budesonide 0.5 MG/2 ML NEB INH SCH (20:15)
[2019-09-07 22:28] VITALS: BMI 34.8
[2019-09-07] MEDS: hydrALAZINE 25 MG TAB PO SCH (23:33)
[2019-09-07] MEDS: Atorvastatin Calcium 20 MG TAB PO SCH (23:34)
[2019-09-07] MEDS: methylPREDNISolone Sod Succ 40 MG VIAL IVP SCH (23:34)
[2019-09-07] MEDS: guaiFENesin ER 600 MG TAB PO SCH (23:34)
[2019-09-08 04:55] LABS: #Lymphocytes 0.7 thou/uL (1.20-3.40); #Monocytes 0.1 thou/uL (0.11-0.59); #Neutrophils 5.2 thou/uL (1.40-6.50); %Basophils 0.2 % (0.0-1.0); %Eosinophils 0.1 % (0.0-10.0); %Lymphocytes 12.1 % (21.0-51.0); %Neutrophils 86.7 % (42.0-75.0); Hemoglobin 11.9 g/dL (12.0-16.0); Mean Corpuscular HGB CONC 31.3 g/dL (32.0-36.0); Mean Corpuscular Volume 92.8 fL (78.0-98.0); Platelet Count 170 thou/uL (130-400); RBC Distribution Width 14.1 % (11.5-14.5)
[2019-09-08 05:17] LABS: Anion Gap 14 mmol/L (10-20); BUN (Urea Nitrogen) 29 mg/dL (9.8-20.1); Calc. Creatinine Clearance 37 mL/min (70-130); Calcium 8.9 mg/dL (7.8-10.44); Carbon Dioxide 21 mmol/L (23-31); Chloride 108 mmol/L (98-107); Estimated GFR-MDRD 34; Glucose 387 mg/dL (83-110); Potassium 4.8 mmol/L (3.5-5.1); Sodium 138 mmol/L (136-145)
[2019-09-08] MEDS: methylPREDNISolone Sod Succ 40 MG VIAL IVP SCH ×2 (05:53→14:52)
[2019-09-08] MEDS: Budesonide 0.5 MG/2 ML NEB INH SCH ×2 (07:11→19:20)
[2019-09-08] MEDS: HumaLOG 300 UNITS/3 ML VIAL SC PRN ×3 (08:31→17:24)
[2019-09-08] MEDS: Enoxaparin Sodium 40 MG/0.4 ML SYRINGE SC SCH (08:32)
[2019-09-08] MEDS: Calcitriol 0.25 MCG CAP PO SCH (08:32)
[2019-09-08] MEDS: hydrALAZINE 25 MG TAB PO SCH ×3 (08:32→21:33)
[2019-09-08] MEDS: guaiFENesin ER 600 MG TAB PO SCH ×2 (08:33→21:34)
[2019-09-08] MEDS: Allopurinol 100 MG TAB PO SCH (08:33)
[2019-09-08] MEDS ORDERED: glipiZIDE 5 MG TAB PO SCH (12:30)
--- NOTE | 2019-09-08 15:22 | PDOC.HOSPP ---
- Subjective Encounter Date: 09/08/19 Encounter Time: 15:22 Subjective: Patient seen and examined for Resp failure. SOB improving. Mild productive cough. No new complaints. No overnight events - Objective Vital Signs & Weight: Vital Signs (12 hours) Temp Pulse Pulse Resp BP BP BP 09/08/19 13:42 100 18 09/08/19 12:00 98.2 F 110 H 22 H 180/86 H 09/08/19 09:42 119 H 179/80 H 09/08/19 09:21 112 H 201/82 H 192/79 H 09/08/19 08:15 98.4 F 110 H 24 H 170/80 H 09/08/19 07:12 100 20 09/08/19 04:42 98.3 F 96 18 178/73 H Pulse Ox Pulse Ox Pulse Ox 09/08/19 13:42 09/08/19 12:00 96 09/08/19 09:42 97 93 L 09/08/19 09:21 95 09/08/19 08:15 94 L 09/08/19 07:12 09/08/19 04:42 93 L Weight Weight 178 lb 8 oz I&O: 09/07/19 09/08/19 09/09/19 06:59 06:59 06:59 Intake Total 287 Balance 287 Result Diagrams: 09/08/19 04:21 09/08/19 04:21 Additional Labs: Accuchecks 09/08/19 09/08/19 09/08/19 11:30 11:01 05:40 POC Glucose 429 H 447 H 387 H EKG Reviewed by me: Yes (Tele SR) Hospitalist ROS - Review of Systems Respiratory: reports: cough, SOB with excertion, wheezing. denies: dry, shortness of breath, hemoptysis, pleuritic pain, sputum, other Cardiovascular: denies: chest pain, palpitations, orthopnea, paroxysmal noc. dyspnea, edema, light headedness, other Gastrointestinal: denies: nausea, vomiting, abdominal pain, diarrhea, constipation, melena, hematochezia, other - Medication Medications: Active Medications Generic Name Dose Route Start Last Admin Trade Name Freq PRN Reason Stop Dose Admin Acetaminophen 650 mg 09/07/19 16:06 09/08/19 08:32 Tylenol PO 650 mg Q4H PRN Administration Headache/Fever/Mild Pain (1-3) Albuterol/Ipratropium 3 ml 09/07/19 19:00 09/08/19 13:42 Duoneb NEB 3 ml [id number] MARGARITO Administration Allopurinol 100 mg 09/08/19 09:00 09/08/19 08:33 Zyloprim PO 100 mg DAILY MARGARITO Administration Atorvastatin Calcium 20 mg 09/07/19 21:00 09/07/19 23:34 Lipitor PO 20 mg HS MARGARITO Administration Budesonide 0.5 mg 09/07/19 18:30 09/08/19 07:11 Pulmicort Neb Solution INH 0.5 mg BID-RT MARGARITO Administration Calcitriol 0.25 mcg 09/08/19 09:00 09/08/19 08:32 Rocaltrol PO 0.25 mcg DAILY MARGARITO Administration Diltiazem HCl 120 mg 09/08/19 09:00 09/08/19 08:33 Cardizem Cd PO 120 mg DAILY MARGARITO Administration Enoxaparin Sodium 40 mg 09/08/19 09:00 09/08/19 08:32 Lovenox SC 40 mg 0900 MARGARITO Administration Guaifenesin 600 mg 09/07/19 21:00 09/08/19 08:33 Mucinex PO 600 mg Q12HR MARGARITO Administration Hydralazine HCl 50 mg 09/07/19 21:00 09/08/19 14:52 Apresoline PO 50 mg TID MARGARITO Administration Pantoprazole Sodium 40 mg 09/08/19 09:00 09/08/19 08:32 Protonix PO 40 mg DAILY MARGARITO Administration - Exam General - other findings: Mild resp distress Neck: no JVD Heart: RRR, no gallops, no rubs, normal peripheral pulses Respiratory: no rales, normal chest expansion, rhonchi, wheezes Respiratory - other findings: mild accessory muscle use Gastrointestinal: soft, non-tender, non-distended, normal bowel sounds Extremities: no cyanosis, no clubbing Neurological: no new deficit Psychiatric: normal affect, A&O x 3 Hosp A/P - Plan Acute hypoxic resp failure due to Asthma/COPD exacerbation Chronic diastolic HF Obesity BMI 34.9 DM2 with hypoglycemia GERD HTN with HTN urgency Physical deconditioning PLAN: Change IV Steroids to PO Cont Nebs Cont O2 Home O2 setup - Patient will require home O2 setup - Sats 94 % 2 l O2 BB dced due to Asthma/COPD Increase Cardizem to 120 mg BID Resume Glimepiride DC planning Will need Nebulizer at dc
[2019-09-08] MEDS: Glimepiride 1 MG TAB PO SCH (17:24)
[2019-09-08] MEDS: Calcium Carbonate 500 MG ChewTAB PO PRN (17:40)
[2019-09-08] MEDS ORDERED: hydrALAZINE 20 MG/ML VIAL SLOW IVP PRN (17:57)
--- NOTE | 2019-09-08 20:11 | PDOC.EVN ---
Event Note - Event Note Event Note: s/p neb treatment patient reports chest pain radiating to left shoulder with associated SOB. she is tachycardiac 120s, SBP 150s, RR 22, sp02 97% 2LNC. Will order EKG, CE, DD. Spoke with Dr. Ash about plan.
[2019-09-08 20:51] LABS: Troponin I 0.062 ng/mL (< 0.028)
[2019-09-08] MEDS: Atorvastatin Calcium 20 MG TAB PO SCH (21:34)
[2019-09-08] MEDS: Senokot S 8.6-50 MG TAB PO SCH (21:34)
[2019-09-08] MEDS ORDERED: methylPREDNISolone Sod Succ/PF 125 MG/2 ML VIAL IVP SCH (21:45)
[2019-09-08] MEDS ORDERED: Mag-Al 1200 mg/1200 mg/30 ML UDCUP PO PRN (21:46)
--- NOTE | 2019-09-08 22:19 | RAD ---
EXAM: Chest PA and lateral: HISTORY: Chest pain shortness of breath COMPARISON: 09/07/2019 FINDINGS: Mild cardiomegaly with mild vascular congestion. Mild interstitial congestion, stable from yesterday. No focal infiltrate. Small effusions blunt the posterior gutters. Postop sternotomy change. Osseous structures are unremarkable. IMPRESSION: Stable findings from yesterday
[2019-09-08] MEDS: Nitroglycerin 2% Ointment 1 INCH/1 GM Packet TOP SCH (22:46)
[2019-09-08] MEDS ORDERED: Furosemide 40 MG/4 ML VIAL SLOW IVP SCH (23:45)
[2019-09-09 02:19] LABS: Troponin I 0.086 ng/mL (< 0.028)
[2019-09-09 05:00] LABS: Anion Gap 14 mmol/L (10-20); BUN (Urea Nitrogen) 34 mg/dL (9.8-20.1); Calc. Creatinine Clearance 37 mL/min (70-130); Calcium 9.3 mg/dL (7.8-10.44); Carbon Dioxide 21 mmol/L (23-31); Chloride 105 mmol/L (98-107); Estimated GFR-MDRD 34; Glucose 319 mg/dL (83-110); Potassium 4.2 mmol/L (3.5-5.1); Sodium 136 mmol/L (136-145)
[2019-09-09 05:05] LABS: Troponin I 0.102 ng/mL (< 0.028)
[2019-09-09] MEDS: Nitroglycerin 2% Ointment 1 INCH/1 GM Packet TOP SCH ×2 (06:00→14:24)
[2019-09-09] MEDS: Budesonide 0.5 MG/2 ML NEB INH SCH ×2 (06:47→18:23)
[2019-09-09] MEDS ORDERED: Glimepiride 1 MG TAB PO SCH (08:00)
[2019-09-09] MEDS: guaiFENesin ER 600 MG TAB PO SCH ×2 (08:22→21:00)
[2019-09-09] MEDS: HumaLOG 300 UNITS/3 ML VIAL SC PRN ×2 (08:22→12:52)
[2019-09-09] MEDS: Enoxaparin Sodium 40 MG/0.4 ML SYRINGE SC SCH (08:22)
[2019-09-09] MEDS: Calcitriol 0.25 MCG CAP PO SCH (08:23)
[2019-09-09] MEDS: Glimepiride 1 MG TAB PO SCH ×2 (08:23→18:01)
[2019-09-09] MEDS: Senokot S 8.6-50 MG TAB PO SCH ×2 (08:23→21:00)
[2019-09-09] MEDS: Allopurinol 100 MG TAB PO SCH (08:23)
[2019-09-09] MEDS: hydrALAZINE 25 MG TAB PO SCH ×3 (08:23→21:00)
[2019-09-09] MEDS: Calcium Carbonate 500 MG ChewTAB PO PRN (14:52)
--- NOTE | 2019-09-09 17:55 | CON ---
DATE OF CONSULTATION: PRIMARY BRASS ROLLER: Radha Palomino MD. HISTORY OF PRESENT ILLNESS: Ms. Jeffers is a very pleasant 83-year-old woman with COPD and history of PVCs, admitted with COPD, had brief episodes of nonsustained v tach. Ms. Jeffers was admitted to the hospital as mentioned with difficulty breathing. She has a COPD exacerbation. She has been placed on telemetry. She has had some episodes of PVCs and up to 7 beats of v tach. She was in the hospital in 08/2019 as well with COPD. REVIEW OF SYSTEMS: CONSTITUTIONAL: No significant weight gain or loss. VISION: No changes. HEARING: No changes. PULMONARY: Positive for shortness of breath and wheezing. GASTROINTESTINAL: No nausea, vomiting, or diarrhea. MEDICATIONS: 1. Ventolin inhaler. 2. Glimepiride. 3. Hydralazine. 4. Simvastatin. 5. Metoprolol at home. 6. She is on diltiazem, being taken off the metoprolol 100 mg a day. She is down to 25 twice a day in view of her wheezing. ALLERGIES: TO PENICILLIN. SOCIAL HISTORY: No alcohol or tobacco. PHYSICAL EXAMINATION: GENERAL: This is a pleasant elderly woman, in no distress. VITAL SIGNS: Blood pressure 144/65 and pulse 90, it is regular. LUNGS: Clear of any rhonchi, but she has expiratory wheezing. CARDIAC: Normal S1 and normal S2. ABDOMEN: Soft and nontender. EXTREMITIES: Warm and dry. No clubbing or cyanosis. There is no edema. LABORATORY DATA: Her potassium is 4.2 and creatinine is 1.47. Troponin 0.102, indeterminate. EKG shows sinus rhythm with frequent PVCs and some nonsustained v tach. ASSESSMENT: 1. Chronic obstructive pulmonary disease. 2. Nonsustained ventricular tachycardia. PLAN: 1. Repeat echocardiogram. 2. Agree with decreasing beta blockers in view of wheezing. 3. Dr. Palomino to see the patient tomorrow. Job ID: [id number]
[2019-09-09] MEDS: methylPREDNISolone Sod Succ 40 MG VIAL IVP SCH ×2 (18:01→23:57)
--- NOTE | 2019-09-09 19:08 | PDOC.HOSPP ---
- Subjective Encounter Date: 09/09/19 Encounter Time: 13:00 Subjective: Patient seen and examined for Resp failure. SOB slightly better. Overnight events noted. CP resolved. Some dry cough. - Objective Vital Signs & Weight: Vital Signs (12 hours) Temp Pulse Pulse Resp BP BP BP 09/09/19 18:23 78 18 09/09/19 16:00 98.6 F 92 18 144/65 H 09/09/19 14:48 131/56 L 09/09/19 13:06 79 20 09/09/19 11:20 97.6 F 94 20 126/58 L 09/09/19 11:10 09/09/19 10:29 92 110/54 L 09/09/19 08:16 98.7 F 110 H 20 130/91 H Pulse Ox Pulse Ox Pulse Ox 09/09/19 18:23 94 L 09/09/19 16:00 95 09/09/19 14:48 09/09/19 13:06 95 09/09/19 11:20 97 09/09/19 11:10 87 L 09/09/19 10:29 96 95 09/09/19 08:16 93 L Weight Weight 180 lb 4.8 oz I&O: 09/08/19 09/09/19 09/10/19 06:59 06:59 06:59 Intake Total 287 1690 1440 Output Total 400 Balance 287 1290 1440 Result Diagrams: 09/08/19 04:21 09/09/19 04:30 Additional Labs: Accuchecks 09/09/19 09/09/19 09/08/19 17:05 11:47 20:27 POC Glucose 155 H 206 H 385 H EKG Reviewed by me: Yes (Tele SR/ NSVT earlier) Hospitalist ROS - Review of Systems Cardiovascular: reports: chest pain (resolved). denies: palpitations, orthopnea , paroxysmal noc. dyspnea, edema, light headedness, other Gastrointestinal: denies: nausea, vomiting, abdominal pain, diarrhea, constipation, melena, hematochezia, other - Medication Medications: Active Medications Generic Name Dose Route Start Last Admin Trade Name Freq PRN Reason Stop Dose Admin Acetaminophen 650 mg 09/07/19 16:06 09/08/19 08:32 Tylenol PO 650 mg Q4H PRN Administration Headache/Fever/Mild Pain (1-3) Albuterol/Ipratropium 3 ml 09/09/19 18:30 09/09/19 18:25 Duoneb NEB 3 ml [id number] MARGARITO Administration Allopurinol 100 mg 09/08/19 09:00 09/09/19 08:23 Zyloprim PO 100 mg DAILY MARGARITO Administration Atorvastatin Calcium 20 mg 09/07/19 21:00 09/08/19 21:34 Lipitor PO 20 mg HS MARGARITO Administration Budesonide 0.5 mg 09/07/19 18:30 09/09/19 18:23 Pulmicort Neb Solution INH 0.5 mg BID-RT MARGARITO Administration Calcitriol 0.25 mcg 09/08/19 09:00 09/09/19 08:23 Rocaltrol PO 0.25 mcg DAILY MARGARITO Administration Calcium Carbonate 1,000 mg 09/07/19 16:06 09/09/19 14:52 Tums PO 1,000 mg Q4H PRN Administration Heartburn or Indigestion Diltiazem HCl 120 mg 09/08/19 09:00 09/09/19 08:22 Cardizem Cd PO 120 mg DAILY [facility] Administration Glimepiride 1 mg 09/08/19 17:00 09/09/19 18:01 Amaryl PO 1 mg BID-WM [facility] Administration Guaifenesin 600 mg 09/07/19 21:00 09/09/19 08:22 Mucinex PO 600 mg Q12HR MARGARITO Administration Hydralazine HCl 50 mg 09/07/19 21:00 09/09/19 14:48 Apresoline PO 50 mg TID MARGARITO Administration Hydralazine HCl 10 mg 09/08/19 17:57 09/08/19 18:13 Apresoline SLOW IVP 10 mg Q4H PRN Administration SBP Greater Than 180 Insulin Human Lispro 0 units 09/08/19 15:21 09/09/19 12:52 Humalog SC 4 unit .MODERATE SLIDING SC PRN Administration Moderate Correctional Scale Methylprednisolone Sodium Succinate 20 mg 09/09/19 18:00 09/09/19 18:01 Solu-Medrol IVP 20 mg Q6HR [facility] Administration Nitroglycerin 1 inch 09/08/19 22:00 09/09/19 14:24 Nitro-Bid 2% Ointment TOP Not Given Q8HR [facility] Pantoprazole Sodium 40 mg 09/08/19 09:00 03/18/20 08:23 Protonix PO 40 mg DAILY MARGARITO Administration Senna/Docusate Sodium 1 tab 09/08/19 21:00 09/09/19 08:23 Senokot S PO 1 tab BID MARGARITO Administration - Exam General - other findings: Mild resp distress Heart: RRR, no gallops, no rubs, normal peripheral pulses Respiratory: no rales, normal chest expansion, rhonchi, wheezes Respiratory - other findings: accessory muscle use Gastrointestinal: non-tender, non-distended, normal bowel sounds, no guarding, no rigidity Extremities: no cyanosis, no clubbing Neurological: no new deficit Psychiatric: normal affect, A&O x 3 Hosp A/P - Plan DVT proph w/SCDs Acute hypoxic resp failure due to Asthma/COPD exacerbation NSVT with CP Chronic diastolic HF Obesity BMI 34.9 DM2 with hypoglycemia GERD HTN with HTN urgency Physical deconditioning ?LORENZO PLAN: Restart Toprol XL at low dose due to wheezing Cont PO Steroids/Nebs/O2 Consult Cardio/Pulm Cont Cardizem to 120 mg daily Cont Glimepiride Will need Nebulizer and ?home O2 at dc Cont Tele monitoring
[2019-09-09] MEDS: Atorvastatin Calcium 20 MG TAB PO SCH (21:01)
[2019-09-10 04:53] LABS: #Lymphocytes 1.1 thou/uL (1.20-3.40); #Monocytes 0.4 thou/uL (0.11-0.59); #Neutrophils 12.1 thou/uL (1.40-6.50); %Basophils 0.2 % (0.0-1.0); %Eosinophils 0.1 % (0.0-10.0); %Lymphocytes 7.9 % (21.0-51.0); %Neutrophils 88.7 % (42.0-75.0); Hemoglobin 11.4 g/dL (12.0-16.0); Mean Corpuscular HGB CONC 32.8 g/dL (32.0-36.0); Mean Corpuscular Hemoglobin 30.1 pg (27.0-31.0); Mean Corpuscular Volume 91.6 fL (78.0-98.0); Mean Platelet Volume 10.6 fL (7.4-10.4); Platelet Count 200 thou/uL (130-400); RBC Distribution Width 14.4 % (11.5-14.5); Red Blood Cell (RBC) Count 3.79 mill/uL (4.20-5.40); White Blood Cell (WBC) Count 13.7 thou/uL (4.8-10.8)
[2019-09-10 05:16] LABS: Anion Gap 15 mmol/L (10-20); BUN (Urea Nitrogen) 47 mg/dL (9.8-20.1); Calc. Creatinine Clearance 31 mL/min (70-130); Calcium 9.3 mg/dL (7.8-10.44); Carbon Dioxide 24 mmol/L (23-31); Chloride 104 mmol/L (98-107); Estimated GFR-MDRD 27; Glucose 237 mg/dL (83-110); Potassium 4.5 mmol/L (3.5-5.1); Sodium 138 mmol/L (136-145)
[2019-09-10] MEDS: methylPREDNISolone Sod Succ 40 MG VIAL IVP SCH ×2 (05:30→12:09)
[2019-09-10] MEDS: Budesonide 0.5 MG/2 ML NEB INH SCH ×2 (06:50→19:18)
[2019-09-10] MEDS: HumaLOG 300 UNITS/3 ML VIAL SC PRN ×2 (07:59→12:08)
[2019-09-10] MEDS: hydrALAZINE 25 MG TAB PO SCH ×3 (08:00→21:09)
[2019-09-10] MEDS: Enoxaparin Sodium 30 MG/0.3 ML SYRINGE SC SCH (08:00)
[2019-09-10] MEDS: guaiFENesin ER 600 MG TAB PO SCH ×2 (08:00→21:11)
[2019-09-10] MEDS: Glimepiride 1 MG TAB PO SCH ×2 (08:01→17:39)
[2019-09-10] MEDS: Calcitriol 0.25 MCG CAP PO SCH (08:01)
[2019-09-10] MEDS: Allopurinol 100 MG TAB PO SCH (08:01)
[2019-09-10] MEDS: Senokot S 8.6-50 MG TAB PO SCH ×2 (08:01→21:11)
--- NOTE | 2019-09-10 08:55 | PDOC.CPN ---
- Subjective Date: 09/10/19 Time: 09:00 Interval history: The pt seen and examined. No overnight events. No cardiac complaints. - Objective Allergies/Adverse Reactions: Allergies Allergy/AdvReac Type Severity Reaction Status Date / Time Penicillins Allergy Severe Rash Verified 09/01/19 02:12 Visit Medications: Current Medications Acetaminophen (Tylenol) 650 mg PO Q4H PRN PRN Reason: Headache/Fever/Mild Pain (1-3) Last Admin: 09/08/19 08:32 Dose: 650 mg Al Hydroxide/Mg Hydroxide (Maalox) 30 ml PO Q6H PRN PRN Reason: Indigestion Albuterol/Ipratropium (Duoneb) 3 ml NEB Q2H PRN PRN Reason: SOB &/or Wheezing Albuterol/Ipratropium (Duoneb) 3 ml NEB [id number] [facility] Last Admin: 09/10/19 06:47 Dose: 3 ml Allopurinol (Zyloprim) 100 mg PO DAILY [facility] Last Admin: 09/10/19 08:01 Dose: 100 mg Atorvastatin Calcium (Lipitor) 20 mg PO HS [facility] Last Admin: 09/09/19 21:01 Dose: 20 mg Bisacodyl (Dulcolax) 10 mg PO DAILYPRN PRN PRN Reason: Constipation Budesonide (Pulmicort Neb Solution) 0.5 mg INH BID-RT [facility] Last Admin: 09/10/19 06:50 Dose: 0.5 mg Calcitriol (Rocaltrol) 0.25 mcg PO DAILY [facility] Last Admin: 09/10/19 08:01 Dose: 0.25 mcg Calcium Carbonate (Tums) 1,000 mg PO Q4H PRN PRN Reason: Heartburn or Indigestion Last Admin: 09/09/19 14:52 Dose: 1,000 mg Dextrose/Water (Dextrose 50%) 25 gm SLOW IVP PRN PRN PRN Reason: Hypoglycemia Diltiazem HCl (Cardizem Cd) 120 mg PO DAILY [facility] Last Admin: 09/10/19 08:00 Dose: 120 mg Enoxaparin Sodium (Lovenox) 30 mg SC 0900 [facility] Last Admin: 09/10/19 08:00 Dose: 30 mg Glimepiride (Amaryl) 1 mg PO BID-WM [facility] Last Admin: 09/10/19 08:01 Dose: 1 mg Glucagon (Glucagon) 1 mg IM PRN PRN PRN Reason: Hypoglycemia Guaifenesin (Mucinex) 600 mg PO Q12HR [facility] Last Admin: 09/10/19 08:00 Dose: 600 mg Guaifenesin/Dextromethorphan (Robitussin Dm) 15 ml PO Q4H PRN PRN Reason: Cough Hydralazine HCl (Apresoline) 50 mg PO TID [facility] Last Admin: 09/10/19 08:00 Dose: 50 mg Hydralazine HCl (Apresoline) 10 mg SLOW IVP Q4H PRN PRN Reason: SBP Greater Than 180 Last Admin: 09/08/19 18:13 Dose: 10 mg Dextrose/Water (D5w) 1,000 mls @ 0 mls/hr IV .Q0M PRN PRN Reason: Hypoglycemia Insulin Human Lispro (Humalog) 0 units SC .BEDTIME SLIDING SC PRN PRN Reason: Bedtime Correctional Scale Insulin Human Lispro (Humalog) 0 units SC .MODERATE SLIDING SC PRN PRN Reason: Moderate Correctional Scale Last Admin: 09/10/19 07:59 Dose: 6 unit Loperamide HCl (Imodium) 2 mg PO PRN PRN PRN Reason: Diarrhea/Loose Stools Methylprednisolone Sodium Succinate (Solu-Medrol) 20 mg IVP Q6HR [facility] Last Admin: 09/10/19 05:30 Dose: 20 mg Metoprolol Succinate (Toprol Xl) 25 mg PO BID [facility] Last Admin: 09/10/19 08:01 Dose: 25 mg Ondansetron HCl (Zofran Odt) 4 mg PO Q6H PRN PRN Reason: Nausea/Vomiting Ondansetron HCl (Zofran) 4 mg IVP Q6H PRN PRN Reason: Nausea/Vomiting Pantoprazole Sodium (Protonix) 40 mg PO DAILY [facility] Last Admin: 09/10/19 08:00 Dose: 40 mg Senna/Docusate Sodium (Senokot S) 2 tab PO BIDPRN PRN PRN Reason: Constipation Senna/Docusate Sodium (Senokot S) 1 tab PO BID [facility] Last Admin: 09/10/19 08:01 Dose: Not Given Sodium Chloride (Flush - Normal Saline) 10 ml IVF Q12HR [facility] Last Admin: 09/09/19 21:02 Dose: 10 ml Sodium Chloride (Flush - Normal Saline) 10 ml IVF PRN PRN PRN Reason: Saline Flush Vital Signs & Weight: Vital Signs Temp Pulse Resp BP BP Pulse Ox 09/10/19 06:50 98 09/10/19 06:47 75 16 98 09/10/19 04:00 98.8 F 101 H 22 H 129/58 L 93 L 09/10/19 01:32 79 18 94 L 09/09/19 23:58 63 139/60 09/09/19 21:53 75 20 95 09/09/19 21:00 83 119/55 L Weight 180 lb 4.8 oz - Physical Exam General: alert & oriented x3 Neck: supple neck Cardiac: regular rate and rhythm, S1/S2 Lungs: decreased breath sounds Abdomen: unremarkable Skin: clear - Labs Result Diagrams: 09/10/19 04:20 09/10/19 04:20 Troponin/CKMB Troponin I 0.102 ng/mL (< 0.028) H 09/09/19 04:30 - Telemetry Sinus rhythms and dysrhythmias: sinus rhythm - Assessment/Plan Assessment/Plan: 1. Acute hypoxic resp failure due to Asthma/COPD exac - stable with 2LNC per the pt; managed by studio operator 2. Acute on chronic diastolic HF - Echo was done this AM indicates a normal LV systolic function and evidence of diastolic dysfunction.; On BBlocker which will changed to Coreg for COPD exacerbation; stable without diuretic; not on SERGEY /ARB due to hx of CKD 3. 9 beats of NSVT with CP - asymptomatic; may need stress test when she is more stable? 4. HTN urgency - stable with current meds; cont. to monitor 5. CAD with hx of CABG in 2002 - on BBlocker and Statin; will start ASA 81mg qd 6. CKD stage 3 - stable 7. DM type 2 - managed by PCP 8. GERD - MAR reviewed Pt. seen and eval. by me. I agree with the A/P by the WORT EXTRACTOR. At this time the chest is clear. RRR. gjm
[2019-09-10] MEDS: Aspirin 81 mg Enteric Coated Tablet PO SCH (09:42)
--- NOTE | 2019-09-10 11:11 | CON ---
DATE OF CONSULTATION: 09/09/2019 CONSULTING PHYSICIAN: Hospitalist. REASON FOR CONSULTATION: "Respiratory failure." HISTORY OF PRESENT ILLNESS: This is an 83-year-old female, whom an order was put into the computer for us to consult on regarding possible respiratory failure. The patient is sitting up, able to give history without difficulty. She has been in the hospital now for 2 days with continued shortness of breath and wheezing. She has a history of COPD and past tobacco abuse. She has not been on oxygen at home in the past. She is currently taking furosemide and ipratropium. PAST MEDICAL HISTORY: 1. Chronic obstructive pulmonary disease. 2. Chronic diastolic heart failure. 3. Chronic kidney disease. 4. Coronary artery disease. PAST SURGICAL HISTORY: 1. Coronary artery bypass grafting surgery. 2. Back surgery. 3. Cataract surgery. ALLERGIES: PENICILLIN. REVIEW OF SYSTEMS: Twelve-point review of system is otherwise negative. MEDICATIONS: Reviewed, see summary section of the chart. PHYSICAL EXAMINATION: VITAL SIGNS: Temperature 97.6, pulse 79, blood pressure 126/58, O2 saturation 95% on 2 L. GENERAL: She is awake, alert, in no distress. HEENT: Remarkable for clear oropharynx. NECK: No adenopathy or JVD. LUNGS: Diffuse wheezing. CARDIAC: S1 and S2. Regular. ABDOMEN: Soft. EXTREMITIES: No edema. IMAGING DATA: Chest x-ray shows no mass, effusion, or infiltrate. LABORATORY DATA: Sodium 136, potassium 4.2, chloride 105, CO2 of 21, BUN 34, creatinine 1.5, and glucose 319. White blood cell count 6, hematocrit 38, and platelet count 170. ASSESSMENT: 1. Chronic obstructive pulmonary disease with exacerbation. 2. Possible diastolic congestive heart failure currently. PLAN: I would continue the patient on steroids. I would increase the frequency of her breathing treatments. Job ID: [id number]
--- NOTE | 2019-09-10 13:20 | PRG ---
DATE OF SERVICE: 09/10/2019 SERVICE: Pulmonary Medicine. INTERVAL HISTORY: The patient is doing great from respiratory standpoint. She is breathing comfortably. There have been no complaints of chest discomfort, nausea, vomiting, fevers, or chills. Her oxygen has been weaned down to 1 L nasal cannula, and she does not have any specific complaints. She does wear oxygen at home. Previously, she was recommended to do sleep study, but she has refused on multiple occasions. PHYSICAL EXAMINATION: VITAL SIGNS: Afebrile, pulse 73, blood pressure 129/67, respirations 24, and saturation 96% on 1 L nasal cannula. GENERAL: The patient is awake and alert, in no apparent distress. LUNGS: Good air entry bilaterally. No prolonged expiratory phase or wheezing is appreciated. HEART: Normal rate and regular. ABDOMEN: Soft, nontender, and nondistended. Bowel sounds are positive. MUSCULOSKELETAL: No cyanosis or clubbing. There is no pitting in the bilateral lower extremities. NEUROLOGIC: Grossly nonfocal. LABORATORY DATA: WBC 13.7, hemoglobin 11.4, and platelets 200,000 roughly stable. Differential was normal on presentation. It is subsequently uptrended in neutrophil count. D-dimer 1.18. Creatinine 1.79, is gently uptrending. BUN 47, has also increased. Basic metabolic profile is otherwise unremarkable. IMAGING STUDIES: Chest x-ray demonstrates pulmonary vascular congestion. Interstitial edema is likely present as well. No obvious effusion is present. ASSESSMENT: 1. Acute hypoxic respiratory failure. 2. Acute on chronic diastolic heart failure. 3. Obstructive sleep apnea. DISCUSSION AND PLAN: We will back off on the breathing treatments to q.6 hours. She would benefit from an outpatient polysomnogram. Additionally, her lung disease can be clarified through time with the help of pulmonary function studies to delineate her underlying lung issue. She will be diuresed to euvolemia. At this point, she has no further requirements for inpatient Pulmonary or Critical Care opinion, and I will sign off. Home respiratory medications can be continued on discharge. Steroids will be limited to 5-day course. Job ID: [id number]
--- NOTE | 2019-09-10 16:34 | PDOC.HOSPP ---
- Subjective Encounter Date: 09/10/19 Encounter Time: 12:00 Subjective: Patient seen and examined for Resp failure. SOB improving. Mild cough. No fever or chills. No new complaints. No overnight events - Objective Vital Signs & Weight: Vital Signs (12 hours) Temp Pulse Resp BP Pulse Ox 09/10/19 15:35 97.9 F 76 15 138/84 97 09/10/19 11:27 98.2 F 73 24 H 129/67 96 09/10/19 11:03 76 16 97 09/10/19 07:58 98.4 F 92 20 130/60 95 09/10/19 06:50 98 09/10/19 06:47 75 16 98 Weight Weight 180 lb 4.8 oz I&O: 09/09/19 09/10/19 09/11/19 06:59 06:59 06:59 Intake Total 1690 1440 Output Total 400 Balance 1290 1440 Result Diagrams: 09/10/19 04:20 09/10/19 04:20 Additional Labs: Accuchecks 09/10/19 09/10/19 09/09/19 10:36 06:01 20:27 POC Glucose 206 H 254 H 180 H 09/09/19 17:05 POC Glucose 155 H EKG Reviewed by me: Yes (Tele SR with Cindy) Hospitalist ROS - Review of Systems Cardiovascular: denies: chest pain, palpitations, orthopnea, paroxysmal noc. dyspnea, edema, light headedness, other Gastrointestinal: denies: nausea, vomiting, abdominal pain, diarrhea, constipation, melena, hematochezia, other - Medication Medications: Active Medications Generic Name Dose Route Start Last Admin Trade Name Freq PRN Reason Stop Dose Admin Acetaminophen 650 mg 09/07/19 16:06 09/08/19 08:32 Tylenol PO 650 mg Q4H PRN Administration Headache/Fever/Mild Pain (1-3) Allopurinol 100 mg 09/08/19 09:00 09/10/19 08:01 Zyloprim PO 100 mg DAILY MARGARITO Administration Aspirin 81 mg 09/10/19 09:00 09/10/19 09:42 Ecotrin PO 81 mg DAILY MARGARITO Administration Atorvastatin Calcium 20 mg 09/07/19 21:00 09/09/19 21:01 Lipitor PO 20 mg HS MARGARITO Administration Budesonide 0.5 mg 09/07/19 18:30 09/10/19 06:50 Pulmicort Neb Solution INH 0.5 mg BID-RT MARGARITO Administration Calcitriol 0.25 mcg 09/08/19 09:00 09/10/19 08:01 Rocaltrol PO 0.25 mcg DAILY MARGARITO Administration Calcium Carbonate 1,000 mg 09/07/19 16:06 09/09/19 14:52 Tums PO 1,000 mg Q4H PRN Administration Heartburn or Indigestion Diltiazem HCl 120 mg 09/08/19 09:00 09/10/19 08:00 Cardizem Cd PO 120 mg DAILY MARGARITO Administration Enoxaparin Sodium 30 mg 09/10/19 09:00 09/10/19 08:00 Lovenox SC 30 mg 0900 MARGARITO Administration Glimepiride 1 mg 09/08/19 17:00 09/10/19 08:01 Amaryl PO 1 mg BID-WM MARGARITO Administration Guaifenesin 600 mg 09/07/19 21:00 09/10/19 08:00 Mucinex PO 600 mg Q12HR MARGARITO Administration Hydralazine HCl 50 mg 09/07/19 21:00 09/10/19 15:50 Apresoline PO 50 mg TID MARGARITO Administration Hydralazine HCl 10 mg 09/08/19 17:57 09/08/19 18:13 Apresoline SLOW IVP 10 mg Q4H PRN Administration SBP Greater Than 180 Insulin Human Lispro 0 units 09/08/19 15:21 09/10/19 12:08 Humalog SC 4 unit .MODERATE SLIDING SC PRN Administration Moderate Correctional Scale Pantoprazole Sodium 40 mg 09/08/19 09:00 09/10/19 08:00 Protonix PO 40 mg DAILY MARGARITO Administration Senna/Docusate Sodium 1 tab 09/08/19 21:00 09/10/19 08:01 Senokot S PO Not Given BID [facility] Sodium Chloride 10 ml 09/09/19 21:00 09/10/19 09:42 Flush - Normal Saline IVF 10 ml Q12HR MARGARITO Administration - Exam General - other findings: Mild resp distress Neck: supple, no JVD Respiratory: CTAB, no rales, rhonchi Respiratory - other findings: accessory muscle use Gastrointestinal: soft, non-distended Extremities: no cyanosis Neurological: no new deficit Psychiatric: normal affect, A&O x 3 Hosp A/P - Plan DVT proph w/SCDs Acute hypoxic resp failure Acute on chronic diastolic HF NSVT CP - no new episodes Obesity BMI 34.9 DM2 with hypoglycemia GERD HTN with HTN urgency Physical deconditioning ?LORENZO CKD 3 Elevated troponins prob due to CHF/?type 2 FL PLAN: Toprol XL changed to Coreg Steroids changed to PO Cont Nebs/O2 Cardio/Pulm Cont Cardizem CD Cont Glimepiride DC planning AM labs
[2019-09-10] MEDS: Carvedilol 3.125 MG TAB PO SCH (17:39)
[2019-09-10] MEDS: Atorvastatin Calcium 20 MG TAB PO SCH (21:10)
[2019-09-11 04:38] LABS: #Lymphocytes 1.1 thou/uL (1.20-3.40); #Monocytes 0.6 thou/uL (0.11-0.59); #Neutrophils 9.1 thou/uL (1.40-6.50); %Eosinophils 0.3 % (0.0-10.0); %Lymphocytes 9.7 % (21.0-51.0); %Monocytes 5.8 % (0.0-10.0); %Neutrophils 84.1 % (42.0-75.0); Hemoglobin 11.4 g/dL (12.0-16.0); Mean Corpuscular HGB CONC 31.8 g/dL (32.0-36.0); Mean Corpuscular Hemoglobin 29.6 pg (27.0-31.0); Mean Corpuscular Volume 93.1 fL (78.0-98.0); Mean Platelet Volume 10.5 fL (7.4-10.4); Platelet Count 178 thou/uL (130-400); RBC Distribution Width 14.5 % (11.5-14.5); Red Blood Cell (RBC) Count 3.85 mill/uL (4.20-5.40); White Blood Cell (WBC) Count 10.9 thou/uL (4.8-10.8)
[2019-09-11 05:03] LABS: Anion Gap 10 mmol/L (10-20); BUN (Urea Nitrogen) 57 mg/dL (9.8-20.1); Calc. Creatinine Clearance 28 mL/min (70-130); Calcium 8.4 mg/dL (7.8-10.44); Carbon Dioxide 26 mmol/L (23-31); Chloride 108 mmol/L (98-107); Estimated GFR-MDRD 24; Glucose 150 mg/dL (83-110); Potassium 4.5 mmol/L (3.5-5.1); Sodium 139 mmol/L (136-145)
[2019-09-11] MEDS: Budesonide 0.5 MG/2 ML NEB INH SCH (07:12)
[2019-09-11] MEDS ORDERED: predniSONE 20 MG TAB PO SCH (08:00)
[2019-09-11] MEDS: hydrALAZINE 25 MG TAB PO SCH (09:10)
[2019-09-11] MEDS: Aspirin 81 mg Enteric Coated Tablet PO SCH (09:10)
[2019-09-11] MEDS: guaiFENesin ER 600 MG TAB PO SCH (09:11)
[2019-09-11] MEDS: Enoxaparin Sodium 30 MG/0.3 ML SYRINGE SC SCH (09:11)
[2019-09-11] MEDS: Carvedilol 3.125 MG TAB PO SCH (09:11)
[2019-09-11] MEDS: Calcitriol 0.25 MCG CAP PO SCH (09:11)
[2019-09-11] MEDS: Allopurinol 100 MG TAB PO SCH (09:11)
[2019-09-11] MEDS: Glimepiride 1 MG TAB PO SCH (09:12)
[2019-09-11] MEDS: Senokot S 8.6-50 MG TAB PO SCH (09:22)
[2019-09-11 12:24] VITALS: BP 121/56; TEMP 98
--- NOTE | 2019-09-11 13:28 | PDOC.CPN ---
- Subjective Date: 09/11/19 Time: 13:31 Interval history: The pt seen and examined. No overnight events. No cardiac complaints. - Objective Allergies/Adverse Reactions: Allergies Allergy/AdvReac Type Severity Reaction Status Date / Time Penicillins Allergy Severe Rash Verified 09/01/19 02:12 Visit Medications: Current Medications Acetaminophen (Tylenol) 650 mg PO Q4H PRN PRN Reason: Headache/Fever/Mild Pain (1-3) Last Admin: 09/08/19 08:32 Dose: 650 mg Al Hydroxide/Mg Hydroxide (Maalox) 30 ml PO Q6H PRN PRN Reason: Indigestion Albuterol/Ipratropium (Duoneb) 3 ml NEB Q2H PRN PRN Reason: SOB &/or Wheezing Albuterol/Ipratropium (Duoneb) 3 ml NEB [id number] [facility] [place] Last Admin: 09/11/19 12:52 Dose: 3 ml Allopurinol (Zyloprim) 100 mg PO DAILY [facility] [place] Last Admin: 09/11/19 09:11 Dose: 100 mg Aspirin (Ecotrin) 81 mg PO DAILY [facility] [place] Last Admin: 09/11/19 09:10 Dose: 81 mg Atorvastatin Calcium (Lipitor) 20 mg PO HS [facility] [place] Last Admin: 09/10/19 21:10 Dose: 20 mg Bisacodyl (Dulcolax) 10 mg PO DAILYPRN PRN PRN Reason: Constipation Budesonide (Pulmicort Neb Solution) 0.5 mg INH BID-RT [facility] [place] Last Admin: 09/11/19 07:12 Dose: 0.5 mg Calcitriol (Rocaltrol) 0.25 mcg PO DAILY [facility] [place] Last Admin: 09/11/19 09:11 Dose: 0.25 mcg Calcium Carbonate (Tums) 1,000 mg PO Q4H PRN PRN Reason: Heartburn or Indigestion Last Admin: 09/09/19 14:52 Dose: 1,000 mg Carvedilol (Coreg) 3.125 mg PO BID-WM [facility] [place] Last Admin: 09/11/19 09:11 Dose: 3.125 mg Dextrose/Water (Dextrose 50%) 25 gm SLOW IVP PRN PRN PRN Reason: Hypoglycemia Diltiazem HCl (Cardizem Cd) 120 mg PO DAILY [facility] [place] Last Admin: 09/11/19 09:10 Dose: 120 mg Enoxaparin Sodium (Lovenox) 30 mg SC 0900 [facility] [place] Last Admin: 09/11/19 09:11 Dose: 30 mg Glimepiride (Amaryl) 1 mg PO BID-[facility] Last Admin: 09/11/19 09:12 Dose: 1 mg Glucagon (Glucagon) 1 mg IM PRN PRN PRN Reason: Hypoglycemia Guaifenesin (Mucinex) 600 mg PO Q12HR [facility] [place] Last Admin: 09/11/19 09:11 Dose: 600 mg Guaifenesin/Dextromethorphan (Robitussin Dm) 15 ml PO Q4H PRN PRN Reason: Cough Hydralazine HCl (Apresoline) 50 mg PO TID [facility] [place] Last Admin: 09/11/19 09:10 Dose: 50 mg Hydralazine HCl (Apresoline) 10 mg SLOW IVP Q4H PRN PRN Reason: SBP Greater Than 180 Last Admin: 09/08/19 18:13 Dose: 10 mg Dextrose/Water (D5w) 1,000 mls @ 0 mls/hr IV .Q0M PRN PRN Reason: Hypoglycemia Insulin Human Lispro (Humalog) 0 units SC .BEDTIME SLIDING SC PRN PRN Reason: Bedtime Correctional Scale Insulin Human Lispro (Humalog) 0 units SC .MODERATE SLIDING SC PRN PRN Reason: Moderate Correctional Scale Last Admin: 09/10/19 12:08 Dose: 4 unit Loperamide HCl (Imodium) 2 mg PO PRN PRN PRN Reason: Diarrhea/Loose Stools Ondansetron HCl (Zofran Odt) 4 mg PO Q6H PRN PRN Reason: Nausea/Vomiting Ondansetron HCl (Zofran) 4 mg IVP Q6H PRN PRN Reason: Nausea/Vomiting Pantoprazole Sodium (Protonix) 40 mg PO DAILY [facility] [place] Last Admin: 09/11/19 09:11 Dose: 40 mg Pred[facility]) [facility] Stop: 09/13/19 08:01 Last Admin: 09/11/19 09:09 Dose: 40 mg Senna/Docusate Sodium (Senokot S) 2 tab PO BIDPRN PRN PRN Reason: Constipation Senna/Docusate Sodium (Senokot S) 1 tab PO BID [facility] [place] Last Admin: 09/11/19 09:22 Dose: Not Given Sodium Chloride (Flush - Normal Saline) 10 ml IVF Q12HR MARGARITO Last Admin: 09/10/19 21:11 Dose: 10 ml Sodium Chloride (Flush - Normal Saline) 10 ml IVF PRN PRN PRN Reason: Saline Flush Vital Signs & Weight: Vital Signs Temp Pulse Resp BP Pulse Ox 09/11/19 12:52 92 20 99 09/11/19 11:45 98.0 F 68 20 121/56 L 98 09/11/19 08:58 98.5 F 70 20 122/56 L 94 L 09/11/19 07:13 58 L 18 97 09/11/19 04:00 98.5 F 77 18 117/57 L 97 Weight 180 lb 4.8 oz - Physical Exam General: alert & oriented x3 HEENT: mucus membranes moist Neck: supple neck Cardiac: regular rate and rhythm, S1/S2 Lungs: decreased breath sounds Neuro: cranial nerve 2-12 intact - Labs Result Diagrams: 09/11/19 04:13 09/11/19 04:13 Troponin/CKMB Troponin I 0.102 ng/mL (< 0.028) H 09/09/19 04:30 - Telemetry Sinus rhythms and dysrhythmias: sinus rhythm - Assessment/Plan Assessment/Plan: 1. Acute hypoxic resp failure due to Asthma/COPD exac - stable with 2LNC per the pt; managed by larder cook 2. Acute on chronic diastolic HF with EF 60-65% and grade I dd - On Coreg for COPD exacerbation; stable without diuretic; not on SERGEY/ARB due to hx of CKD 3. 9 beats of NSVT with CP - asymptomatic; may need stress test when she is symptomatic; 4. HTN urgency - stable with current meds; cont. to monitor 5. CAD with hx of CABG in 2002 - on BBlocker, Statin and on ASA 81mg qd 6. CKD stage 3 - stable 7. DM type 2 - managed by PCP 8. GERD - MAR reviewed
--- NOTE | 2019-09-11 16:58 | DIS ---
DATE OF ADMISSION: 09/09/2019 DATE OF DISCHARGE: 09/11/2019 DISCHARGE DISPOSITION: Home. FOLLOWUP: 1. Follow up with primary care physician, Dr. Deutsch in 1 week. 2. Follow up with Cardiology, Dr. Palomino and Pulmonary, Dr. Reynoso as scheduled. 3. [facility] was arranged. 4. Home oxygen was arranged. HISTORY: The patient was seen on the day of discharge. Denies any new complaints. Shortness of breath has significantly improved. BRIEF HOSPITAL COURSE: The patient is an 83-year-old female, who was recently discharged from this hospital for asthma exacerbation, presented to the hospital with worsening shortness of breath along with low blood sugar. Her workup was consistent with acute hypoxic respiratory failure secondary to asthma/COPD exacerbation. She was also found to be in acute on chronic diastolic heart failure. She was evaluated by Cardiology and Pulmonary. Home oxygen has been arranged. She showed good improvement with IV steroids that has been changed to oral. Home Health Care has been arranged. Due to CKD, stage 3, diuretics were held. The patient was found to have blood sugar of 31 on admission. She had hyperglycemia at this admission, probably due to IV steroids. She will be on prednisone for next 3 days. She was advised to reduce glimepiride to 1 mg daily after 3 days. She was advised to monitor blood sugars on a daily basis and to maintain a log. The patient appears stable for discharge. FINAL DIAGNOSES: 1. Acute hypoxic respiratory failure. 2. Acute on chronic diastolic heart failure. 3. Asthma/chronic obstructive pulmonary disease exacerbation. 4. Nonsustained ventricular tachycardia. This happened after discontinuation of beta-blockers due to significant wheezing. The patient has been started on carvedilol along with oral Cardizem. 5. Obesity with a BMI of 34.9. 6. Diabetes mellitus, type 2 with hypoglycemia. 7. Gastroesophageal reflux disease. 8. Hypertension with hypertensive urgency. 9. Physical deconditioning. 10. Suspected obstructive sleep apnea. 11. Chronic kidney disease, stage 3. 12. Elevated troponin is probably due to congestive heart failure/type 2 myocardial infarction. DISCHARGE MEDICATIONS: 1. Allopurinol 100 mg daily. 2. Calcitriol 0.25 mcg daily. 3. Glimepiride 1 mg b.i.d. 4. Hydralazine 50 mg 3 times daily. 5. Vyzulta eye drops at bedtime. 6. Omeprazole 40 mg daily. 7. Simvastatin 40 mg at bedtime. 8. Mucinex 600 mg b.i.d. 9. Aspirin 81 mg daily. 10. Carvedilol 3.125 mg b.i.d. 11. Cardizem CD 120 mg daily. 12. Prednisone 40 mg daily for next 3 days. 13. Albuterol inhaler as needed. 14. Tylenol No. 3 as needed. 15. DuoNeb as needed. Job ID: [id number]
--- NOTE | 2019-09-12 10:22 | EKG ---
Test Reason : SOB Blood Pressure : / mmHG Vent. Rate : 068 BPM Atrial Rate : 068 BPM P-R Int : 164 ms QRS Dur : 072 ms QT Int : 414 ms P-R-T Axes : -08 -31 053 degrees QTc Int : 440 ms Sinus rhythm with frequent Premature ventricular complexes Left axis deviation Nonspecific ST and T wave abnormality Abnormal ECG Confirmed by SCOTT ESTRADA, JACQUELINE ([id number]), manager editorial TORRI CATHERINE ([id number]) on 09/12/2019 10:22:22 AM Referred By: Confirmed By:JACQUELINE CHAVEZ MD
--- NOTE | 2019-09-14 13:14 | PQF ---
LIONEL LEON MALIK MD [id number] [facility] [id number] CLINICAL DOCUMENTATION CLARIFICATION FORM: POST DISCHARGE Addendum to original discharge summary date: ____ Late entry note date: __ DATE:09/14/2019 ATTN: AREN DUMAS MD Please exercise your independent, professional judgment in responding to the clarification form. Clinical indicators are provided on the bottom of this form for your review Please check appropriate box(s): kindly clarify the diagnosis occasioning on admission [x] Acute on chronic diastolic heart failure [ ] Acute hypoxic respiratory failure [ ] COPD exacerbation [ ] Other diagnosis [ ] Unable to determine For continuity of documentation, please document condition throughout progress notes and discharge summary. Thank You. CLINICAL INDICATORS - SIGNS / SYMPTOMS / LABS Presented to the hospital with worsening shortness of breath along with low blood sugar. her workup was consistent with acute hypoxic respiratory failure secondary to asthma/ COPD exacerbation . She was also found to be in acute on chronic diastolic heart failure -Documented in discharge summary on 09/10 by aren Dumas MD RISK FACTORS Acute on chronic diastolic heart failure-Documented in discharge summary on by aren Dumas MD Acute hypoxic respiratory failure-Documented in discharge summary on 09/10 by aren Dumas MD COPD exacerbation-Documented in discharge summary on 09/10 by aren Dumas MD TREATMENTS: She was evaluated by cardiology and pulmonary -Documented in discharge summary on 09/10 by aren Dumas MD IV steroids -Documented in discharge summary on 09/10 by aren Dumas MD Lasix 40 mg IV-Documented in Medication snapshot [employer] Win[employer] (This form is maintained as a part of the permanent medical record) 2014 [employer]. All Rights Reserved [email or web address] [phone] HANNAH
== END 2019-09-11 15:38 | disposition home or self-care (01) | DRG 280 ==
LOC: ERS 12:13 → ERHOLD 14:53 → INTOOBSV 14:53 → 2NO 22:11 → OBSVTOIN 09-09 12:47
PROVIDERS: ADMIT Internal Medicine; ATTEND Internal Medicine
DX: I13.0 Hypertensive heart and chronic kidney disease with heart failure and stage 1 through stage 4 chronic kidney disease, or unspecified chronic kidney disease (principal); I50.33 Acute on chronic diastolic (congestive) heart failure; I21.A1 Myocardial infarction type 2; J96.01 Acute respiratory failure with hypoxia; J44.1 Chronic obstructive pulmonary disease with (acute) exacerbation; I47.2 Ventricular tachycardia; N18.3 Chronic kidney disease, stage 3 (moderate); E11.22 Type 2 diabetes mellitus with diabetic chronic kidney disease; E11.649 Type 2 diabetes mellitus with hypoglycemia without coma; K21.9 Gastro-esophageal reflux disease without esophagitis; I16.0 Hypertensive urgency; G47.33 Obstructive sleep apnea (adult) (pediatric); I25.10 Atherosclerotic heart disease of native coronary artery without angina pectoris; E66.9 Obesity, unspecified; E78.5 Hyperlipidemia, unspecified; M10.9 Gout, unspecified; Z68.35 Body mass index [BMI] 35.0-35.9, adult; Z95.1 Presence of aortocoronary bypass graft; Z88.0 Allergy status to penicillin
CPT/HCPCS: 36415; 36416; 71046; 80048; 80053; 84484; 85025; 85379; 93005; 93010; 93306; 94640; 96374; 99214; G0463; J0360; J1650; J1940; J2920; J2930; J7512; J7620; J7626

== ENCOUNTER 2020-03-31 12:12 | Outpatient (CLI) | payer MEDICARE, MEDICAID ==
--- NOTE | 2020-03-31 12:47 | RAD ---
XR Chest Pa Lat STANDARD History: Dyspnea Comparison: Radiograph August Findings: Heart size is enlarged. Mild pulmonary venous congestion and early edema. No pneumothorax. Multiple midline sternotomy wires. No acute osseous abnormality. Impression: Mild decompensated congestive heart failure.
== END 2020-03-31 12:13 | disposition home or self-care (01) ==
LOC: BICRAD 12:12
PROVIDERS: ATTEND Internal Medicine Critical Care Medicine
DX: R06.00 Dyspnea, unspecified (principal); I50.9 Heart failure, unspecified
CPT/HCPCS: 71046

== ENCOUNTER 2020-06-26 14:44 | Observation (INO) | payer MEDICARE, MEDICAID ==
[2020-06-26] MEDS ORDERED: Dextrose 50% Abboject 50 ML SYRINGE ONE (14:54)
[2020-06-26 16:02] LABS: #Eosinphils 0.1 thou/uL (0.0-0.7); #Lymphocytes 1.2 thou/uL (1.20-3.40); #Monocytes 0.4 thou/uL (0.11-0.59); #Neutrophils 7.5 thou/uL (1.40-6.50); %Basophils 0.4 % (0.0-1.0); %Eosinophils 0.6 % (0.0-10.0); %Lymphocytes 13.6 % (21.0-51.0); %Monocytes 3.9 % (0.0-10.0); %Neutrophils 81.5 % (42.0-75.0); Hemoglobin 12.7 g/dL (12.0-16.0); Mean Corpuscular HGB CONC 31.3 g/dL (32.0-36.0); Mean Corpuscular Hemoglobin 29.3 pg (27.0-31.0); Mean Corpuscular Volume 93.9 fL (78.0-98.0); Mean Platelet Volume 10.8 fL (7.4-10.4); Platelet Count 182 thou/uL (130-400); RBC Distribution Width 14.6 % (11.5-14.5); Red Blood Cell (RBC) Count 4.33 mill/uL (4.20-5.40); White Blood Cell (WBC) Count 9.2 thou/uL (4.8-10.8)
[2020-06-26 16:15] LABS: Bilirubin Negative (Negative); Blood, Urine Negative (Negative); Clarity Clear (Clear); Glucose, Urine (Dipstick) Normal (Negative); Ketone, Urine Negative (Negative); Leukocyte Negative Leu/uL (Negative); Nitrite Negative (Negative); Protein, Urine (Dipstick) Negative (Neg-Trace); Specific Gravity, Urine 1.013 (1.002-1.036); Urobilinogen Normal mg/dL (Less than 2)
[2020-06-26 16:22] LABS: ALT (SGPT) 10 U/L (8-55); AST (SGOT) 14 U/L (5-34); Albumin 3.8 g/dL (3.4-4.8); Alkaline Phosphatase 80 U/L (40-110); Anion Gap 16 mmol/L (10-20); BUN (Urea Nitrogen) 31 mg/dL (9.8-20.1); Bilirubin, Total 0.3 mg/dL (0.2-1.2); Calc. Creatinine Clearance 0 mL/min (70-130); Calcium 8.7 mg/dL (7.8-10.44); Carbon Dioxide 22 mmol/L (23-31); Chloride 107 mmol/L (98-107); Globulin 2.4 g/dL (2.4-3.5); Glucose 237 mg/dL (83-110); Magnesium 1.5 mg/dL (1.6-2.6); Potassium 4.3 mmol/L (3.5-5.1); Protein, Total 6.2 g/dL (6.0-8.3); Sodium 141 mmol/L (136-145)
--- NOTE | 2020-06-26 16:49 | CT ---
CT HEAD WITHOUT IV CONTRAST COMPARISON: 10/15/2006 HISTORY: Altered mental status, slurred speech, weakness. TECHNIQUE: Axial CT imaging at 5 mm intervals from vertex through skull base without contrast FINDINGS: There is decreased attenuation in the periventricular white matter which is nonspecific but likely re flective of chronic small vessel ischemic changes. Low attenuation area is again seen in the right cerebellar hemisphere likely due to remote infarction. A more curvilinear low density are seen in the left cerebral hemisphere which could be related to volume loss or small focal remote infarction in this region. There is mild cerebral volume loss. The ventricular system is normal in size, shape, and position for the degree of sulcal atrophy. There is no evidence of an acute cortical infarction, hemorrhage, mass effect, or midline shift. Mastoid air cells are not well pneumatized. This is a stable finding. Mucosal thickening seen in several posterior ethmoidal air cells. Osseous structures appear intact. No other interval change. IMPRESSION: 1. No acute intracranial abnormality demonstrated. 2. Chronic findings.
[2020-06-26] MEDS ORDERED: Magnesium 2 GM/50 ML BAG (IN WATER) ONE ×2 (16:52→16:53)
[2020-06-26] MEDS ORDERED: Aspirin Chewable 81 MG TAB ONE (16:52)
--- NOTE | 2020-06-26 16:55 | RAD ---
EXAM: CHEST ONE VIEW HISTORY: Altered mental status. Slurred speech and weakness. Low blood sugar and dizziness COMPARISON: 03/31/2020 FINDINGS: Postoperative changes related to median sternotomy are again seen. The cardiac silhouette remains enl arged. Pulmonary vasculature is at the upper limits of normal. Linear densities are again seen at the right lung base probably due to mild scarring. No consolidation or pleural fluid is seen. Vascula r calcifications are seen in the ectatic thoracic aorta. As mild osteopenia is present. No other interval change. IMPRESSION: 1. Cardiomegaly without overt CHF. 2. No acute cardiopulmonary process.
[2020-06-26] MEDS ORDERED: Magnesium 2 GM/50 ML 2 GM in Premix Bag 1 BAG IVPB SCH (17:00)
[2020-06-26] MEDS ORDERED: Dextrose 50% Abboject 50 ML SYRINGE SLOW IVP PRN (18:01)
[2020-06-26] MEDS ORDERED: Dextrose 5% in Water 1,000 ML IV PRN (18:01)
[2020-06-26] MEDS ORDERED: Meclizine HCl 12.5 MG TAB PO PRN (18:06)
[2020-06-26] MEDS ORDERED: HumaLOG 300 UNITS/3 ML VIAL SC PRN ×2 (18:06)
--- NOTE | 2020-06-26 18:21 | PDOC.HHP ---
Hospitalist HPI - History of Present Illness History of Present Illness: ADMISSION DATE: 06/26/2020 TIME OF ASSESSMENT: 1745 PRIMARY CARE PHYSICIAN: Get CHIEF COMPLAINT: Dizziness HPI: Patient is a 84-year-old female past medical history significant for diabetes mellitus type 2, hypertension, CABG. She presents to the ER today for weakness and dizziness. Patient reports low blood sugar last night in the 50s associated candy bar and it was able to come up to the low 100s. She took her glimepiride yesterday morning but held it last night. This morning she again took her medication and her blood sugars were consistently low in the 60s and she presented with mild confusion, global weakness, and dizziness. EMS was called at this time as her daughter was not able to move around the house. Blood glucose upon arrival was 55 EMS gave oral glucose prior to arrival. She denies headache, nausea, vomiting, chest pain, fever, dysuria. Does endorse recent left ear pain and shortness of breath. The shortness of breath is her baseline with her COPD. She is oxygen dependent at night when she sleeps. ED COURSE: Vital Signs: Blood pressure 164/98, pulse 74, respiratory 20, temp 97.4 oral, 96% room air Today in the ER they completed lab work, chest x-ray, head CT, EKG. She was administered magnesium 2 g IV, aspirin 324 mg oral, 1 amp of D50. PAST MEDICAL HISTORY: Diabetes mellitus type 2, hypertension, hyperlipidemia, chronic kidney disease, COPD, CHF PAST SURGICAL HISTORY: CABG, back surgery, eustachian tubes SOCIAL HISTORY: Patient lives at home with her daughter. She is a former cigarette smoker, quit smoking 10 years ago. Denies alcohol, denies drug use. FAMILY HISTORY: Hypertension, diabetes mellitus type 2, colon cancer ALLERGIES: Penicillins CURRENT MEDICATIONS: Allopurinol 100 mg once a day Hydralazine 50 mg 3 times a day Calcitriol 0.25 mcg once daily Glimepiride 1 mg 2 times a day Simvastatin 40 mg once a day Aspirin 81 mg once a day Lasix 20 mg once a day Diltiazem 120 mg once a day Carvedilol 3.125 mg twice a day Hospitalist ROS - Review of Systems Constitutional: reports: weakness ENT: reports: ear pain Respiratory: reports: SOB with excertion Neurological: reports: other (dizziness) All other systems reviewed; all pertinent +/- noted in HPI/Subj - Exam General Appearance: NAD, awake alert Eye: PERRL ENT: normocephalic atraumatic ENT - other findings: tube in place in left ear- moderate drainage Neck: supple Heart: RRR, no murmur, no gallops, no rubs, normal peripheral pulses Respiratory: CTAB, no wheezes, no rales, no ronchi, normal chest expansion Gastrointestinal: soft, non-tender, non-distended, normal bowel sounds Extremities: no cyanosis Skin: no rashes Neurological: no focal deficits Neurological - other findings: dizziness with movement, no nystagmus Musculoskeletal: no muscle wasting Psychiatric: normal affect, normal behavior, A&O x 3 Hospitalist Results - Labs Result Diagrams: 06/26/20 15:28 06/26/20 15:28 Lab results: WBC 9.2 thou/uL (4.8-10.8) 06/26/20 15:28 Hgb 12.7 g/dL (12.0-16.0) 06/26/20 15:28 Hct 40.6 % (36.0-47.0) 06/26/20 15:28 MCV 93.9 fL (78.0-98.0) 06/26/20 15:28 Plt Count 182 thou/uL (130-400) 06/26/20 15: Neutrophils % 81.5 % (42.0-75.0) H 06/26/20 15:28 Sodium 141 mmol/L (136-145) 06/26/20 15:28 Potassium 4.3 mmol/L (3.5-5.1) 06/26/20 15:28 Chloride 107 mmol/L (98-107) 06/26/20 15:28 Carbon Dioxide 22 mmol/L (23-31) L 06/26/20 15:28 BUN 31 mg/dL (9.8-20.1) H 06/26/20 15:28 Creatinine 1.37 mg/dL (0.6-1.1) H 06/26/20 15:28 Glucose 237 mg/dL (83-110) H 06/26/20 15:28 Calcium 8.7 mg/dL (7.8-10.44) 06/26/20 15:28 Total Bilirubin 0.3 mg/dL (0.2-1.2) 06/26/20 15:28 AST 14 U/L (5-34) 06/26/20 15:28 ALT 10 U/L (8-55) 06/26/20 15:28 Alkaline Phosphatase 80 U/L (40-110) 06/26/20 15:28 Troponin I 0.010 ng/mL (< 0.028) 06/26/20 15:28 Serum Total Protein 6.2 g/dL (6.0-8.3) 06/26/20 15:28 Albumin 3.8 g/dL (3.4-4.8) 06/26/20 15:28 Urine Ketones Negative mg/dL (Negative) 06/26/20 15:28 Urine Blood Negative (Negative) 06/26/20 15:28 Urine Nitrite Negative (Negative) 06/26/20 15:28 Ur Leukocyte Esterase Negative Josse/uL (Negative) 06/26/20 15:28 - EKG Interpretation EKG: SR with PVC 75 bpm - Radiology Interpretation CT scan - head Status: report reviewed by me Additional Comment: IMPRESSION: 1. No acute intracranial abnormality demonstrated. 2. Chronic findings. Chest x-ray Status: image reviewed by me, report reviewed by me Additional Comment: IMPRESSION: 1. Cardiomegaly without overt CHF. 2. No acute cardiopulmonary process. Hospitalist H&P A/P - Plan Plan: Vertigo rule out CVA versus BPPV MRI in am- if positive can proceed with stroke workup and consult neurology and have echo completed Meclizine available as needed May need referral to [facility] Hypoglycemia with diabetes mellitus type 2 Hold oral medication at this time SSI available Accuchecks AC/HS Hypomagnesemia Replaced in ER Recheck lab in am CKD Stage III Monitor kidney levels in am- currently at baseline Avoid nephrotoxic medications Hypertension Vital signs q4hr Restart home medications when reconciled COPD Restart home medications when reconciled May use O2 prn and at night VTE prophylaxis in place SCDs CODE STATUS: Full Surrogate decision-maker is her daughterAnuja Patient and plan of care has been discussed and agreed upon with Dr. Kaufman
[2020-06-26 22:41] LABS: SARS-CoV-2 MS2 Positive; SARS-CoV-2 N Gene Negative; SARS-CoV-2 S Gene Negative; SARS-CoV-2 by NAA Not Detected (NotDetected); SARS-CoV-2 orf1ab Negative
[2020-06-27] VITALS: BMI 31.6
[2020-06-27 05:27] LABS: #Eosinphils 0.2 thou/uL (0.0-0.7); #Lymphocytes 2.1 thou/uL (1.20-3.40); #Monocytes 0.6 thou/uL (0.11-0.59); #Neutrophils 6.3 thou/uL (1.40-6.50); %Basophils 0.5 % (0.0-1.0); %Eosinophils 1.8 % (0.0-10.0); %Monocytes 6.9 % (0.0-10.0); %Neutrophils 67.8 % (42.0-75.0); Hemoglobin 11.2 g/dL (12.0-16.0); Mean Corpuscular HGB CONC 30.5 g/dL (32.0-36.0); Mean Corpuscular Hemoglobin 28.5 pg (27.0-31.0); Mean Corpuscular Volume 93.3 fL (78.0-98.0); Mean Platelet Volume 10.9 fL (7.4-10.4); Platelet Count 188 thou/uL (130-400); RBC Distribution Width 14.6 % (11.5-14.5); Red Blood Cell (RBC) Count 3.93 mill/uL (4.20-5.40); White Blood Cell (WBC) Count 9.3 thou/uL (4.8-10.8)
[2020-06-27 05:49] LABS: Anion Gap 15 mmol/L (10-20); BUN (Urea Nitrogen) 34 mg/dL (9.8-20.1); Calc. Creatinine Clearance 40 mL/min (70-130); Calcium 8.7 mg/dL (7.8-10.44); Carbon Dioxide 23 mmol/L (23-31); Cardiac Risk 4.1 (Less than 4.5); Chloride 108 mmol/L (98-107); Cholesterol 146 mg/dl (< 200 Desired); Glucose 109 mg/dL (83-110); HDL Cholesterol 36 mg/dL (>60 Neg Risk); LDL Cholesterol, Calculated 84 mg/dL; Magnesium 1.7 mg/dL (1.6-2.6); Potassium 4.2 mmol/L (3.5-5.1); Sodium 142 mmol/L (136-145); Triglycerides 130 mg/dL (Less than 150)
[2020-06-27] MEDS ORDERED: FLU VACC QS2020-21(65YR UP)/PF 240 MCG/0.7 ML SYRINGE IM ONE (08:00)
--- NOTE | 2020-06-27 08:49 | MRI ---
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 No large supratentorial cerebral infarction of any age. No restricted diffusion to indicate any acute infarction in posterior fossa or supratentorially. Diffuse brain parenchymal volume loss, not unusual for age. Ventricles are normal in size and configuration. Mild-moderate chronic ischemic white matter changes of the cerebrum, not unusual for age. No evidence of recent or remote major intra-axial hemorrhage. No mass effect, midline shift, or extra-axial fluid collection. Paucity of pneumatized right mastoid air cells. Left mastoid effusion. Flow voids are grossly maintained in the central arteries of the [place]. 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 2) no acute findings
[2020-06-27] MEDS ORDERED: guaiFENesin ER 600 MG TAB PO SCH (09:00)
[2020-06-27] MEDS ORDERED: Calcitriol 0.25 MCG CAP PO SCH (09:00)
[2020-06-27] MEDS ORDERED: Aspirin 325 mg Enteric Coated Tablet PO SCH (09:00)
[2020-06-27] MEDS ORDERED: Aspirin 81 mg Enteric Coated Tablet PO SCH (09:00)
[2020-06-27] MEDS: hydrALAZINE 25 MG TAB PO SCH ×2 (09:18→14:49)
[2020-06-27 12:32] LABS: Hemoglobin A1c 5.8 % (4.0-6.0)
--- NOTE | 2020-06-27 14:20 | ULT ---
BILATERAL CAROTID DUPLEX ULTRASOUND: DATE: 06/27/2020 HISTORY: Dizziness, vertigo. TECHNIQUE: Garcia scale ultrasound with color flow and spectral Doppler imaging of the extracranial carotid artery systems performed bilaterally. FINDINGS: There is plaque formation in the left common carotid artery. The peak systolic velocity in the right ICA measures 100 cm/second with an end-diastolic velocity of 26 cm/second and a systolic ratio of 1.05. The peak systolic velocity in the left ICA measures 107 cm/second with an end-diastolic velocity of 3 7 cm/second and a systolic ratio of 1.18. Flow in both vertebral arteries remains antegrade. IMPRESSION: No evidence of hemodynamically significant stenosis in either ICA. POS: AH
--- NOTE | 2020-06-27 15:03 | PDOC.DS.DS ---
Provider - Provider Date of Admission: 06/26/20 17:07 Date of Discharge: 06/27/20 Admitting Provider: Kolton Kaufman MD Primary Care Physician: Brianda Maddox NP Course - Hospital Course Hospital Course: Patient is a 84-year-old female who initially presented to the hospital Pertinent Studies: patient is a pleasant 84-year-old female with history of diabetes who presented to the hospital with dizziness. 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 I did check a hemoglobin A1c her hemoglobin A1c was 5.8 I have advised the patient's daughter to stop her home glimepiride which she takes 1 mg twice a day. She will follow up with her primary care doctor in a week. Carotid Dopplers were done which were negative Resuscitation Status: 06/26/20 18:01 Resuscitation Status Routine Co-Sign Provider: Resuscitation Status: FULL: Full Resuscitation Discussed with: pt and daughter - Labs Lab Results: 06/27/20 04:41 06/27/20 04:41 Abnormal Lab Results - Last 48 hrs 06/26/20 15:28: Carbon Dioxide 22 L, BUN 31 H, Creatinine 1.37 H, Magnesium 1.5 L 06/26/20 15:28: MCHC 31.3 L, RDW 14.6 H, MPV 10.8 H, Neutrophils % 81.5 H, Lymphocytes % 13.6 L, Neutrophils # 7.5 H 06/27/20 04:41: Chloride 108 H, BUN 34 H, Creatinine 1.29 H 06/27/20 04:41: RBC 3.93 L, Hgb 11.2 L, MCHC 30.5 L, RDW 14.6 H, MPV 10.9 H, Monocytes # 0.6 H - Physical Exam Vitals: Vital Signs (12 hours) Temp Pulse Resp BP BP BP BP 06/27/20 14:53 98 176/84 H 06/27/20 14:50 84 167/75 H 06/27/20 14:49 80 185/72 H 06/27/20 14:48 80 185/72 H 06/27/20 11:11 98.4 F 89 16 146/74 H 06/27/20 09:18 76 06/27/20 09:17 76 06/27/20 08:02 97.8 F 76 14 170/74 H 06/27/20 03:12 98.5 F 86 18 137/63 Pulse Ox 06/27/20 14:53 06/27/20 14:50 06/27/20 14:49 06/27/20 14:48 06/27/20 11:11 96 06/27/20 09:18 06/27/20 09:17 06/27/20 08:02 93 L 06/27/20 03:12 94 L Weight Weight 173 lb Physical Exam: The patient was seen and examined on the day of discharge. Problem - Discharge Plan Assessment: 1. Dizziness #2 hypoglycemia #3 CAD Plan - Discharge Medications Home Medications: Medication Instructions Recorded Confirmed Type Allopurinol 100 mg PO DAILY 11/18/18 06/27/20 History Calcitriol 0.25 mcg PO DAILY 11/18/18 06/27/20 History Omeprazole 40 mg PO DAILY 11/18/18 06/27/20 History Simvastatin 40 mg PO HS 11/18/18 06/27/20 History hydrALAZINE HCl [Hydralazine HCl] 50 mg PO TID 11/18/18 06/27/20 History Acetaminophen With Codeine 1 tab PO BID PRN 09/01/19 09/07/19 History [Tylenol with Codeine #3] Latanoprostene Bunod [Vyzulta] 1 drop OP HS 09/07/19 06/27/20 History Aspirin [Ecotrin Low Strength] 81 mg PO DAILY tab 09/11/19 06/27/20 Rx Carvedilol [Coreg] 3.125 mg PO BID-WM #60 tab 09/11/19 06/27/20 Rx Diltiazem CD [Cardizem CD] 120 mg PO DAILY #30 cap 09/11/19 06/27/20 Rx Ipratropium/Albuterol Sulfate 3 ml NEB [id number] PRN #30 neb 09/11/19 06/27/20 Rx [DuoNeb] Albuterol Sulfate [Albuterol 18 gm IH PRN PRN 06/27/20 06/27/20 History Sulfate Hfa] Furosemide 20 mg PO DAILY PRN 06/27/20 06/27/20 History Allergies: Penicillins Allergy (Severe, Verified 09/11/19 17:48) Rash - Discharge Instructions Discharge Instructions:: follow up with primary Activity:: Activity as Tolerated Nourishment:: Heart Healthy Diet - Follow up Plan Referrals: Brianda Maddox NP [Primary Care Provider] - Disposition: HOME Quality - Care Measures CORE MEASURES:: N/A
[2020-06-27 16:18] VITALS: BP 137/76; TEMP 98.2
[2020-06-27] MEDS ORDERED: Carvedilol 3.125 MG TAB PO SCH (17:00)
[2020-06-27] MEDS ORDERED: Atorvastatin Calcium 20 MG TAB PO SCH (21:00)
== END 2020-06-27 16:29 | disposition home or self-care (01) ==
LOC: ERS 14:44 → 2SE 17:07
PROVIDERS: ADMIT Internal Medicine; ATTEND Internal Medicine
DX: R42 Dizziness and giddiness (principal); E11.649 Type 2 diabetes mellitus with hypoglycemia without coma; I25.10 Atherosclerotic heart disease of native coronary artery without angina pectoris; E83.42 Hypomagnesemia; I13.0 Hypertensive heart and chronic kidney disease with heart failure and stage 1 through stage 4 chronic kidney disease, or unspecified chronic kidney disease; E11.22 Type 2 diabetes mellitus with diabetic chronic kidney disease; N18.30 Chronic kidney disease, stage 3 unspecified; I50.9 Heart failure, unspecified; J44.9 Chronic obstructive pulmonary disease, unspecified; E78.5 Hyperlipidemia, unspecified; Z86.73 Personal history of transient ischemic attack (TIA), and cerebral infarction without residual deficits; Z87.891 Personal history of nicotine dependence; Z79.82 Long term (current) use of aspirin; Z79.84 Long term (current) use of oral hypoglycemic drugs; Z79.899 Other long term (current) drug therapy; Z88.0 Allergy status to penicillin; Z95.1 Presence of aortocoronary bypass graft; Z20.822 Contact with and (suspected) exposure to COVID-19; Z23 Encounter for immunization
CPT/HCPCS: 70450; 70551; 71045; 80048; 80061; 81003; 82962 ×2; 83036; 83735 ×2; 84484; 85025; 90662; 93005; 93880; G0008; G0378 ×3; U0003; 36415; 36416; 51701; 80053; 84443; 87635; 90471; 96365; 96375; J3475

== ENCOUNTER 2020-09-11 21:15 | Emergency (ER) | payer MEDICARE, MEDICAID ==
[2020-09-11 21:42] LABS: #Basophils 0.1 thou/uL (0.0-0.2); #Eosinphils 0.4 thou/uL (0.0-0.7); #Lymphocytes 2.6 thou/uL (1.20-3.40); #Monocytes 0.8 thou/uL (0.11-0.59); #Neutrophils 5.5 thou/uL (1.40-6.50); %Basophils 1.2 % (0.0-1.0); %Lymphocytes 27.7 % (21.0-51.0); %Neutrophils 59.2 % (42.0-75.0); Hemoglobin 11.4 g/dL (12.0-16.0); Mean Corpuscular HGB CONC 31.3 g/dL (32.0-36.0); Mean Corpuscular Hemoglobin 29.1 pg (27.0-31.0); Mean Corpuscular Volume 92.8 fL (78.0-98.0); Mean Platelet Volume 10.5 fL (7.4-10.4); Platelet Count 191 thou/uL (130-400); RBC Distribution Width 13.8 % (11.5-14.5); Red Blood Cell (RBC) Count 3.93 mill/uL (4.20-5.40); White Blood Cell (WBC) Count 9.3 thou/uL (4.8-10.8)
[2020-09-11] MEDS ORDERED: Meclizine HCl 25 MG TAB ONE (21:43)
[2020-09-11 22:00] LABS: ALT (SGPT) Less than 7 U/L (8-55); AST (SGOT) 12 U/L (5-34); Albumin 3.8 g/dL (3.4-4.8); Alkaline Phosphatase 82 U/L (40-110); Anion Gap 13 mmol/L (10-20); BUN (Urea Nitrogen) 28 mg/dL (9.8-20.1); Bilirubin, Total 0.3 mg/dL (0.2-1.2); Calc. Creatinine Clearance 0 mL/min (70-130); Calcium 9.1 mg/dL (7.8-10.44); Carbon Dioxide 28 mmol/L (23-31); Chloride 103 mmol/L (98-107); Globulin 2.8 g/dL (2.4-3.5); Glucose 120 mg/dL (83-110); Potassium 4.2 mmol/L (3.5-5.1); Protein, Total 6.6 g/dL (5.8-8.1); Sodium 140 mmol/L (136-145)
[2020-09-11 22:10] LABS: Bacteria/HPF None Seen HPF (None Seen); Bilirubin Negative (Negative); Blood, Urine Negative (Negative); Clarity Clear (Clear); Glucose, Urine (Dipstick) Normal (Negative); Ketone, Urine Negative (Negative); Leukocyte 25 Leu/uL (Negative); Nitrite Negative (Negative); Protein, Urine (Dipstick) 30 mg/dL (Neg-Trace); RBC/HPF None Seen HPF (0-3); Specific Gravity, Urine 1.006 (1.002-1.036); Squamous Epithelial 0-3 HPF (0-3); Urobilinogen Normal mg/dL (Less than 2)
[2020-09-11] MEDS ORDERED: Promethazine HCl 25 MG/ML VIAL ONE (22:55)
== END 2020-09-12 00:25 | disposition home or self-care (01) ==
LOC: ERS 21:15
DX: R42 Dizziness and giddiness (principal); J45.909 Unspecified asthma, uncomplicated; I12.9 Hypertensive chronic kidney disease with stage 1 through stage 4 chronic kidney disease, or unspecified chronic kidney disease; N18.9 Chronic kidney disease, unspecified; E78.00 Pure hypercholesterolemia, unspecified; E11.22 Type 2 diabetes mellitus with diabetic chronic kidney disease; Z87.891 Personal history of nicotine dependence
CPT/HCPCS: 80053; 81003; 81015; 84484; 85025; 93005; 96365; J2550

== ENCOUNTER 2021-02-10 08:45 | Emergency (ER) | payer MEDICARE, MEDICAID ==
[2021-02-10 09:34] LABS: #Eosinphils 0.3 thou/uL (0.0-0.7); #Lymphocytes 2.5 thou/uL (1.20-3.40); #Monocytes 0.6 thou/uL (0.11-0.59); #Neutrophils 5.1 thou/uL (1.40-6.50); %Basophils 0.5 % (0.0-1.0); %Eosinophils 3.7 % (0.0-10.0); %Lymphocytes 29.6 % (21.0-51.0); %Monocytes 6.7 % (0.0-10.0); %Neutrophils 59.5 % (42.0-75.0); Hemoglobin 11.9 g/dL (12.0-16.0); Mean Corpuscular HGB CONC 32.6 g/dL (32.0-36.0); Mean Corpuscular Hemoglobin 29.8 pg (27.0-31.0); Mean Corpuscular Volume 91.3 fL (78.0-98.0); Mean Platelet Volume 10.1 fL (7.4-10.4); Platelet Count 204 thou/uL (130-400); RBC Distribution Width 13.7 % (11.5-14.5); White Blood Cell (WBC) Count 8.5 thou/uL (4.8-10.8)
[2021-02-10 09:41] LABS: ALT (SGPT) 12 U/L (8-55); AST (SGOT) 19 U/L (5-34); Albumin 3.5 g/dL (3.4-4.8); Alkaline Phosphatase 89 U/L (40-110); Anion Gap 12 mmol/L (10-20); BUN (Urea Nitrogen) 27 mg/dL (9.8-20.1); Bilirubin, Total 0.3 mg/dL (0.2-1.2); Calc. Creatinine Clearance 0 mL/min (70-130); Calcium 9.4 mg/dL (7.8-10.44); Carbon Dioxide 25 mmol/L (23-31); Chloride 104 mmol/L (98-107); Globulin 3.6 g/dL (2.4-3.5); Glucose 145 mg/dL (83-110); Potassium 4.3 mmol/L (3.5-5.1); Protein, Total 7.1 g/dL (5.8-8.1); Sodium 137 mmol/L (136-145)
[2021-02-10] MEDS ORDERED: Iopamidol-370 76% 500 ML 1 ML ONE (10:16)
== END 2021-02-10 11:20 | disposition home or self-care (01) ==
LOC: ERS 08:45
DX: J45.909 Unspecified asthma, uncomplicated (principal); I12.9 Hypertensive chronic kidney disease with stage 1 through stage 4 chronic kidney disease, or unspecified chronic kidney disease; N18.9 Chronic kidney disease, unspecified; E11.22 Type 2 diabetes mellitus with diabetic chronic kidney disease; J44.9 Chronic obstructive pulmonary disease, unspecified; I51.7 Cardiomegaly; Z87.891 Personal history of nicotine dependence; Z79.899 Other long term (current) drug therapy; Z79.82 Long term (current) use of aspirin
CPT/HCPCS: 36415; 71045; 74177; 80053; 84484; 85025; 93005; Q9967

== ENCOUNTER 2021-12-26 16:32 | Inpatient (IN) | payer MEDICARE, MEDICAID ==
[2021-12-26 17:20] LABS: #Eosinphils 0.1 thou/uL (0.0-0.7); #Lymphocytes 2.5 thou/uL (1.20-3.40); #Monocytes 1.1 thou/uL (0.11-0.59); #Neutrophils 8.3 thou/uL (1.40-6.50); %Basophils 0.2 % (0.0-1.0); %Eosinophils 0.6 % (0.0-10.0); %Lymphocytes 21.1 % (21.0-51.0); %Monocytes 9.2 % (0.0-10.0); %Neutrophils 68.8 % (42.0-75.0); Hemoglobin 11.7 g/dL (12.0-16.0); Mean Corpuscular HGB CONC 31.4 g/dL (32.0-36.0); Mean Corpuscular Hemoglobin 30.2 pg (27.0-31.0); Mean Corpuscular Volume 96.2 fL (78.0-98.0); Mean Platelet Volume 10.3 fL (7.4-10.4); Platelet Count 214 thou/uL (130-400); RBC Distribution Width 13.9 % (11.5-14.5); Red Blood Cell (RBC) Count 3.88 mill/uL (4.20-5.40)
[2021-12-26 17:40] LABS: ALT (SGPT) 15 U/L (8-55); AST (SGOT) 26 U/L (5-34); Albumin 3.1 g/dL (3.4-4.8); Alkaline Phosphatase 80 U/L (40-110); Anion Gap 16 mmol/L (10-20); BUN (Urea Nitrogen) 37 mg/dL (9.8-20.1); Bilirubin, Total 0.3 mg/dL (0.2-1.2); Calc. Creatinine Clearance 0 mL/min (70-130); Calcium 8.6 mg/dL (7.8-10.44); Carbon Dioxide 24 mmol/L (23-31); Chloride 102 mmol/L (98-107); Estimated GFR 34; Globulin 2.7 g/dL (2.4-3.5); Glucose 100 mg/dL (83-110); Potassium 4.4 mmol/L (3.5-5.1); Protein, Total 5.8 g/dL (5.8-8.1); Sodium 138 mmol/L (136-145)
[2021-12-26 18:02] LABS: CKMB 1.1 ng/mL (0-6.6)
[2021-12-26] MEDS ORDERED: Furosemide 20 MG/2 ML VIAL ONE (19:00)
[2021-12-26] MEDS ORDERED: cefTRIAXone\\ROCEPHIN 1 GM VIAL ONE (19:52)
[2021-12-26 20:36] LABS: SARS-CoV-2 NAA Rapid Test DETECTED (NotDetected)
[2021-12-26] MEDS ORDERED: Azithromycin 500 MG VIAL ONE (20:47)
[2021-12-26 21:07] LABS: Troponin I 0.032 ng/mL (< 0.028)
[2021-12-26] MEDS ORDERED: Acetaminophen 325 MG TAB PO PRN (21:55)
[2021-12-26] MEDS ORDERED: Acetaminophen 650 MG Suppository PR PRN (21:55)
[2021-12-26] MEDS ORDERED: Albuterol 200 PUFF (6.7GM INHALER) INH PRN (21:55)
[2021-12-26] MEDS ORDERED: Ondansetron ODT 4 MG TAB PO PRN (21:55)
[2021-12-26] MEDS ORDERED: Ondansetron PF 4 MG/2 ML Vial IVP PRN (21:55)
[2021-12-26] MEDS ORDERED: Dextrose 5% in Water 1,000 ML IV PRN (22:02)
[2021-12-26] MEDS ORDERED: Dextrose 50% Abboject 50 ML SYRINGE SLOW IVP PRN (22:02)
[2021-12-26] MEDS ORDERED: Electrolyte Replacement Protocol 1 EACH FS SCH (22:15)
[2021-12-27 00:25] LABS: Troponin I 0.032 ng/mL (< 0.028)
[2021-12-27] MEDS ORDERED: Albuterol 200 PUFF (6.7GM INHALER) INH SCH (01:00)
[2021-12-27] MEDS ORDERED: Acetaminophen 650 MG Suppository PR PRN (02:31)
[2021-12-27] MEDS ORDERED: Albuterol 200 PUFF (6.7GM INHALER) INH PRN (02:31)
[2021-12-27] MEDS ORDERED: Acetaminophen 325 MG TAB PO PRN (02:31)
[2021-12-27] MEDS ORDERED: Dexamethasone 10 MG/ML VIAL SLOW IVP SCH (02:45)
[2021-12-27] MEDS ORDERED: Dexamethasone 10 MG/ML VIAL ONE (03:01)
[2021-12-27] MEDS ORDERED: Albuterol 200 PUFF (6.7GM INHALER) ONE (03:01)
[2021-12-27] MEDS: Albuterol 200 PUFF (6.7GM INHALER) INH SCH ×6 (03:06→21:23)
[2021-12-27 05:23] LABS: #Lymphocytes 1.5 thou/uL (1.20-3.40); #Monocytes 0.6 thou/uL (0.11-0.59); #Neutrophils 8.6 thou/uL (1.40-6.50); %Basophils 0.2 % (0.0-1.0); %Eosinophils 0.4 % (0.0-10.0); %Lymphocytes 13.6 % (21.0-51.0); %Monocytes 5.9 % (0.0-10.0); %Neutrophils 79.9 % (42.0-75.0); Mean Corpuscular HGB CONC 31.5 g/dL (32.0-36.0); Mean Corpuscular Hemoglobin 30.4 pg (27.0-31.0); Mean Corpuscular Volume 96.3 fL (78.0-98.0); Mean Platelet Volume 10.7 fL (7.4-10.4); Platelet Count 191 thou/uL (130-400); RBC Distribution Width 13.9 % (11.5-14.5); Red Blood Cell (RBC) Count 3.97 mill/uL (4.20-5.40); White Blood Cell (WBC) Count 10.8 thou/uL (4.8-10.8)
[2021-12-27 05:49] LABS: Anion Gap 16 mmol/L (10-20); BUN (Urea Nitrogen) 37 mg/dL (9.8-20.1); Calc. Creatinine Clearance 32 mL/min (70-130); Calcium 9.3 mg/dL (7.8-10.44); Carbon Dioxide 23 mmol/L (23-31); Chloride 103 mmol/L (98-107); Estimated GFR 36; Glucose 137 mg/dL (83-110); Magnesium 1.5 mg/dL (1.6-2.6); Potassium 4.2 mmol/L (3.5-5.1); Sodium 138 mmol/L (136-145)
[2021-12-27] MEDS ORDERED: Magnesium 2 GM/50 ML(in water) 2 GM in Premix Bag 1 BAG IVPB SCH (08:00)
[2021-12-27] MEDS ORDERED: methylPREDNISolone Sod Succ/PF 125 MG/2 ML VIAL IVP SCH (09:00)
[2021-12-27] MEDS ORDERED: methylPREDNISolone Sod Succ 40 MG VIAL IVP SCH (09:00)
[2021-12-27] MEDS ORDERED: Furosemide 40 MG/4 ML VIAL SLOW IVP SCH ×3 (09:00→17:00)
[2021-12-27] MEDS: REMDESIVIR 200 MG in Sodium Chloride 0.9% 250 ML 210 ML IV SCH ×2 (09:57→11:45)
[2021-12-27] MEDS: Pantoprazole 40 MG VIAL IVP SCH (09:57)
[2021-12-27] MEDS: Ascorbic Acid 500 mg Chewable Tablet PO SCH (09:57)
[2021-12-27] MEDS: Cholecalciferol (Vitamin D3) 400 UNITS TAB PO SCH (09:58)
[2021-12-27] MEDS: Zinc Sulfate 220 MG CAP PO SCH (09:58)
[2021-12-27] MEDS: Enoxaparin Sodium 30 MG/0.3 ML SYRINGE SC SCH (09:59)
[2021-12-27] MEDS: HumaLOG 300 UNITS/3 ML VIAL SC PRN ×2 (11:45→17:44)
[2021-12-27] MEDS: Benzonatate 100 MG CAP PO PRN (12:04)
[2021-12-27] MEDS: hydrALAZINE 20 MG/ML VIAL SLOW IVP PRN ×2 (12:05→16:42)
[2021-12-27] MEDS ORDERED: Furosemide 20 MG TAB PO PRN (12:32)
[2021-12-27] MEDS: hydrALAZINE 25 MG TAB PO SCH ×2 (14:53→21:23)
[2021-12-27] MEDS: Carvedilol 3.125 MG TAB PO SCH (16:42)
[2021-12-27] MEDS ORDERED: cefTRIAXone\\ROCEPHIN 1 GM in Sodium Chloride 0.9% 100 ML IVPB SCH (20:00)
[2021-12-27] MEDS ORDERED: Azithromycin 500 MG in Sodium Chloride 0.9% 250 ML 250 ML IVPB SCH (21:00)
[2021-12-27] MEDS: Atorvastatin Calcium 20 MG TAB PO SCH (21:22)
[2021-12-27] MEDS: Dexamethasone 10 MG/ML VIAL SLOW IVP SCH (21:22)
[2021-12-27] MEDS: Cefepime 1 GM in Sodium Chloride 0.9% 100 ML IVPB SCH (21:22)
[2021-12-28] MEDS: Albuterol 200 PUFF (6.7GM INHALER) INH SCH ×6 (02:10→21:33)
[2021-12-28 04:26] LABS: #Lymphocytes 1.5 thou/uL (1.20-3.40); #Monocytes 0.5 thou/uL (0.11-0.59); #Neutrophils 12.3 thou/uL (1.40-6.50); %Basophils 0.1 % (0.0-1.0); %Eosinophils 0.1 % (0.0-10.0); %Lymphocytes 10.7 % (21.0-51.0); %Monocytes 3.3 % (0.0-10.0); %Neutrophils 85.8 % (42.0-75.0); Hemoglobin 12.1 g/dL (12.0-16.0); Mean Corpuscular HGB CONC 31.5 g/dL (32.0-36.0); Mean Corpuscular Hemoglobin 29.9 pg (27.0-31.0); Mean Platelet Volume 10.3 fL (7.4-10.4); Platelet Count 250 thou/uL (130-400); Red Blood Cell (RBC) Count 4.05 mill/uL (4.20-5.40); White Blood Cell (WBC) Count 14.3 thou/uL (4.8-10.8)
[2021-12-28 04:46] LABS: ALT (SGPT) 15 U/L (8-55); AST (SGOT) 21 U/L (5-34); Albumin 3.3 g/dL (3.4-4.8); Alkaline Phosphatase 93 U/L (40-110); Anion Gap 17 mmol/L (10-20); BUN (Urea Nitrogen) 58 mg/dL (9.8-20.1); Bilirubin, Total Less than 0.2 mg/dL (0.2-1.2); CRP (Inflammatory) 18.76 mg/dL (= or < 0.5); Calc. Creatinine Clearance 24 mL/min (70-130); Calcium 9.6 mg/dL (7.8-10.44); Carbon Dioxide 24 mmol/L (23-31); Chloride 102 mmol/L (98-107); Estimated GFR 26; Globulin 3.6 g/dL (2.4-3.5); Glucose 273 mg/dL (83-110); Magnesium 1.8 mg/dL (1.6-2.6); Protein, Total 6.9 g/dL (5.8-8.1); Sodium 139 mmol/L (136-145)
[2021-12-28] MEDS ORDERED: Furosemide 40 MG/4 ML VIAL SLOW IVP SCH (06:00)
[2021-12-28] MEDS: HumaLOG 300 UNITS/3 ML VIAL SC PRN ×3 (06:41→21:34)
[2021-12-28] MEDS: Cefepime 1 GM in Sodium Chloride 0.9% 100 ML IVPB SCH ×2 (08:53→21:33)
[2021-12-28] MEDS: Pantoprazole 40 MG VIAL IVP SCH (08:54)
[2021-12-28] MEDS: Ascorbic Acid 500 mg Chewable Tablet PO SCH (08:54)
[2021-12-28] MEDS: Aspirin 81 mg Enteric Coated Tablet PO SCH (08:54)
[2021-12-28] MEDS: hydrALAZINE 25 MG TAB PO SCH ×3 (08:54→21:33)
[2021-12-28] MEDS: Calcitriol 0.25 MCG CAP PO SCH (08:54)
[2021-12-28] MEDS: Cholecalciferol (Vitamin D3) 400 UNITS TAB PO SCH (08:54)
[2021-12-28] MEDS: Carvedilol 3.125 MG TAB PO SCH ×2 (08:55→15:59)
[2021-12-28] MEDS: Enoxaparin Sodium 30 MG/0.3 ML SYRINGE SC SCH (08:55)
[2021-12-28] MEDS: Allopurinol 100 MG TAB PO SCH (08:55)
[2021-12-28] MEDS: Zinc Sulfate 220 MG CAP PO SCH (08:55)
[2021-12-28] MEDS: Dexamethasone 10 MG/ML VIAL SLOW IVP SCH ×2 (08:56→21:33)
[2021-12-28] MEDS ORDERED: Magnesium 2 GM/50 ML(in water) 2 GM in Premix Bag 1 BAG IVPB SCH (09:00)
[2021-12-28] MEDS ORDERED: Dexamethasone 10 MG/ML VIAL SLOW IVP SCH (09:00)
[2021-12-28] MEDS ORDERED: REMDESIVIR 100 MG in Sodium Chloride 0.9% 250 ML 230 ML IV SCH (09:00)
[2021-12-28] MEDS ORDERED: Potassium Chloride 20 MEQ TAB PO SCH (09:00)
[2021-12-28] MEDS ORDERED: methylPREDNISolone Sod Succ 40 MG VIAL IVP SCH (09:00)
[2021-12-28] MEDS ORDERED: Non-Formulary Item 1 EACH (Omeprazole [Omeprazole] 40 MG Capsule.Dr) PO SCH (09:00)
[2021-12-28 15:55] VITALS: BMI 28.0
[2021-12-28] MEDS: Benzonatate 100 MG CAP PO PRN (15:59)
[2021-12-28] MEDS: Atorvastatin Calcium 20 MG TAB PO SCH (21:33)
[2021-12-29] MEDS: Albuterol 200 PUFF (6.7GM INHALER) INH SCH ×7 (02:13→23:30)
[2021-12-29 04:45] LABS: #Lymphocytes 1.4 thou/uL (1.20-3.40); #Monocytes 0.4 thou/uL (0.11-0.59); #Neutrophils 14.4 thou/uL (1.40-6.50); %Basophils 0.1 % (0.0-1.0); %Eosinophils 0.1 % (0.0-10.0); %Lymphocytes 8.5 % (21.0-51.0); %Monocytes 2.4 % (0.0-10.0); %Neutrophils 88.9 % (42.0-75.0); Hemoglobin 11.1 g/dL (12.0-16.0); Mean Corpuscular HGB CONC 30.9 g/dL (32.0-36.0); Mean Corpuscular Hemoglobin 29.7 pg (27.0-31.0); Mean Corpuscular Volume 96.3 fL (78.0-98.0); Mean Platelet Volume 10.1 fL (7.4-10.4); Platelet Count 273 thou/uL (130-400); RBC Distribution Width 14.1 % (11.5-14.5); Red Blood Cell (RBC) Count 3.73 mill/uL (4.20-5.40); White Blood Cell (WBC) Count 16.2 thou/uL (4.8-10.8)
[2021-12-29 05:57] LABS: ALT (SGPT) 18 U/L (8-55); AST (SGOT) 24 U/L (5-34); Albumin 2.9 g/dL (3.4-4.8); Alkaline Phosphatase 99 U/L (40-110); Anion Gap 17 mmol/L (10-20); BUN (Urea Nitrogen) 69 mg/dL (9.8-20.1); Bilirubin, Total 0.2 mg/dL (0.2-1.2); CRP (Inflammatory) 9.57 mg/dL (= or < 0.5); Calc. Creatinine Clearance 23 mL/min (70-130); Calcium 9.2 mg/dL (7.8-10.44); Carbon Dioxide 26 mmol/L (23-31); Chloride 101 mmol/L (98-107); Estimated GFR 25; Globulin 3.2 g/dL (2.4-3.5); Glucose 307 mg/dL (83-110); Magnesium 2.1 mg/dL (1.6-2.6); Protein, Total 6.1 g/dL (5.8-8.1); Sodium 140 mmol/L (136-145)
[2021-12-29] MEDS: Ascorbic Acid 500 mg Chewable Tablet PO SCH (08:31)
[2021-12-29] MEDS: Calcitriol 0.25 MCG CAP PO SCH (08:31)
[2021-12-29] MEDS: Cholecalciferol (Vitamin D3) 400 UNITS TAB PO SCH (08:32)
[2021-12-29] MEDS: Aspirin 81 mg Enteric Coated Tablet PO SCH (08:32)
[2021-12-29] MEDS: Zinc Sulfate 220 MG CAP PO SCH (08:32)
[2021-12-29] MEDS: Allopurinol 100 MG TAB PO SCH (08:32)
[2021-12-29] MEDS: Carvedilol 3.125 MG TAB PO SCH ×2 (08:32→16:00)
[2021-12-29] MEDS: Enoxaparin Sodium 30 MG/0.3 ML SYRINGE SC SCH (08:33)
[2021-12-29] MEDS: hydrALAZINE 25 MG TAB PO SCH ×3 (08:33→20:49)
[2021-12-29] MEDS: Cefepime 1 GM in Sodium Chloride 0.9% 100 ML IVPB SCH (08:35)
[2021-12-29] MEDS: Dexamethasone 10 MG/ML VIAL SLOW IVP SCH (08:35)
[2021-12-29] MEDS: Pantoprazole 40 MG VIAL IVP SCH (08:56)
[2021-12-29] MEDS ORDERED: Furosemide 40 MG/4 ML VIAL SLOW IVP SCH (09:00)
[2021-12-29] MEDS: HumaLOG 300 UNITS/3 ML VIAL SC PRN ×3 (10:58→20:50)
[2021-12-29] MEDS ORDERED: guaiFENesin/Codeine 200 mg/20 mg 10 ml Cup PO PRN (15:01)
[2021-12-29] MEDS ORDERED: guaiFENesin/Codeine 200 mg/20 mg 10 ml Cup PO SCH (15:15)
[2021-12-29] MEDS: Benzonatate 100 MG CAP PO SCH ×2 (15:55→20:49)
[2021-12-29] MEDS: methylPREDNISolone Sod Succ 40 MG VIAL IVP SCH (17:45)
[2021-12-29] MEDS: Atorvastatin Calcium 20 MG TAB PO SCH (20:48)
[2021-12-29] MEDS: guaiFENesin ER 600 MG TAB PO SCH (20:49)
[2021-12-29] MEDS: cefTRIAXone\\ROCEPHIN 2 GM in Sodium Chloride 0.9% 100 ML IVPB SCH (20:49)
[2021-12-29] MEDS ORDERED: Nitroglycerin 0.4 MG TAB (25 Tab Bottle) SL PRN (23:40)
[2021-12-30] MEDS: methylPREDNISolone Sod Succ 40 MG VIAL IVP SCH ×5 (00:02→23:17)
[2021-12-30] MEDS: Albuterol 200 PUFF (6.7GM INHALER) INH SCH ×6 (03:49→21:45)
[2021-12-30 04:44] LABS: #Lymphocytes 1.3 thou/uL (1.20-3.40); #Monocytes 0.3 thou/uL (0.11-0.59); #Neutrophils 14.6 thou/uL (1.40-6.50); %Basophils 0.1 % (0.0-1.0); %Eosinophils 0.3 % (0.0-10.0); %Lymphocytes 7.9 % (21.0-51.0); %Monocytes 1.9 % (0.0-10.0); %Neutrophils 89.8 % (42.0-75.0); Hemoglobin 11.6 g/dL (12.0-16.0); Mean Corpuscular HGB CONC 31.9 g/dL (32.0-36.0); Mean Corpuscular Hemoglobin 30.2 pg (27.0-31.0); Mean Corpuscular Volume 94.5 fL (78.0-98.0); Mean Platelet Volume 9.7 fL (7.4-10.4); Platelet Count 302 thou/uL (130-400); Red Blood Cell (RBC) Count 3.84 mill/uL (4.20-5.40); White Blood Cell (WBC) Count 16.2 thou/uL (4.8-10.8)
[2021-12-30 05:16] LABS: ALT (SGPT) 21 U/L (8-55); AST (SGOT) 22 U/L (5-34); Albumin 3.2 g/dL (3.4-4.8); Alkaline Phosphatase 92 U/L (40-110); Anion Gap 16 mmol/L (10-20); BUN (Urea Nitrogen) 69 mg/dL (9.8-20.1); Bilirubin, Total 0.2 mg/dL (0.2-1.2); CRP (Inflammatory) 6.14 mg/dL (= or < 0.5); Calc. Creatinine Clearance 27 mL/min (70-130); Calcium 9.3 mg/dL (7.8-10.44); Carbon Dioxide 26 mmol/L (23-31); Chloride 103 mmol/L (98-107); Estimated GFR 29; Globulin 3.2 g/dL (2.4-3.5); Glucose 254 mg/dL (83-110); Potassium 4.3 mmol/L (3.5-5.1); Protein, Total 6.4 g/dL (5.8-8.1); Sodium 141 mmol/L (136-145)
[2021-12-30] MEDS: HumaLOG 300 UNITS/3 ML VIAL SC PRN ×4 (05:47→21:22)
[2021-12-30] MEDS: Zinc Sulfate 220 MG CAP PO SCH (09:02)
[2021-12-30] MEDS: Ascorbic Acid 500 mg Chewable Tablet PO SCH (09:03)
[2021-12-30] MEDS: guaiFENesin ER 600 MG TAB PO SCH ×2 (09:03→20:40)
[2021-12-30] MEDS: Aspirin 81 mg Enteric Coated Tablet PO SCH (09:03)
[2021-12-30] MEDS: hydrALAZINE 25 MG TAB PO SCH ×3 (09:04→20:40)
[2021-12-30] MEDS: Benzonatate 100 MG CAP PO SCH ×3 (09:04→20:40)
[2021-12-30] MEDS: Pantoprazole 40 MG VIAL IVP SCH (09:07)
[2021-12-30] MEDS: Carvedilol 3.125 MG TAB PO SCH ×2 (09:07→16:44)
[2021-12-30] MEDS: Cholecalciferol (Vitamin D3) 400 UNITS TAB PO SCH (09:07)
[2021-12-30] MEDS: Allopurinol 100 MG TAB PO SCH (09:07)
[2021-12-30] MEDS: Enoxaparin Sodium 30 MG/0.3 ML SYRINGE SC SCH (10:53)
[2021-12-30] MEDS ORDERED: Furosemide 40 MG/4 ML VIAL SLOW IVP SCH (12:30)
[2021-12-30] MEDS: Atorvastatin Calcium 20 MG TAB PO SCH (20:39)
[2021-12-30] MEDS: cefTRIAXone\\ROCEPHIN 2 GM in Sodium Chloride 0.9% 100 ML IVPB SCH (20:40)
[2021-12-30] MEDS: Vancomycin 1 GM in Premix Bag 1 BAG IVPB SCH (22:18)
[2021-12-31] MEDS: Albuterol 200 PUFF (6.7GM INHALER) INH SCH ×7 (02:34→23:11)
[2021-12-31 05:09] LABS: #Eosinphils 0.1 thou/uL (0.0-0.7); #Lymphocytes 1.1 thou/uL (1.20-3.40); #Monocytes 0.3 thou/uL (0.11-0.59); #Neutrophils 10.4 thou/uL (1.40-6.50); %Basophils 0.2 % (0.0-1.0); %Eosinophils 0.5 % (0.0-10.0); %Lymphocytes 9.4 % (21.0-51.0); %Monocytes 2.3 % (0.0-10.0); %Neutrophils 87.6 % (42.0-75.0); Hemoglobin 11.6 g/dL (12.0-16.0); Mean Corpuscular HGB CONC 31.6 g/dL (32.0-36.0); Mean Corpuscular Volume 94.9 fL (78.0-98.0); Mean Platelet Volume 9.8 fL (7.4-10.4); Platelet Count 305 thou/uL (130-400); RBC Distribution Width 14.1 % (11.5-14.5); Red Blood Cell (RBC) Count 3.87 mill/uL (4.20-5.40); White Blood Cell (WBC) Count 11.8 thou/uL (4.8-10.8)
[2021-12-31 05:24] LABS: ALT (SGPT) 22 U/L (8-55); AST (SGOT) 18 U/L (5-34); Albumin 3.2 g/dL (3.4-4.8); Alkaline Phosphatase 77 U/L (40-110); Anion Gap 16 mmol/L (10-20); BUN (Urea Nitrogen) 68 mg/dL (9.8-20.1); Bilirubin, Total 0.2 mg/dL (0.2-1.2); CRP (Inflammatory) 3.87 mg/dL (= or < 0.5); Calc. Creatinine Clearance 28 mL/min (70-130); Calcium 9.2 mg/dL (7.8-10.44); Carbon Dioxide 31 mmol/L (23-31); Chloride 99 mmol/L (98-107); Estimated GFR 32; Globulin 3.1 g/dL (2.4-3.5); Glucose 244 mg/dL (83-110); Potassium 3.7 mmol/L (3.5-5.1); Protein, Total 6.3 g/dL (5.8-8.1); Sodium 142 mmol/L (136-145)
[2021-12-31] MEDS: methylPREDNISolone Sod Succ 40 MG VIAL IVP SCH ×4 (06:31→23:58)
[2021-12-31] MEDS: HumaLOG 300 UNITS/3 ML VIAL SC PRN ×4 (06:31→20:53)
[2021-12-31] MEDS: Aspirin 81 mg Enteric Coated Tablet PO SCH (08:20)
[2021-12-31] MEDS: Calcitriol 0.25 MCG CAP PO SCH (08:20)
[2021-12-31] MEDS: Carvedilol 3.125 MG TAB PO SCH ×2 (08:20→17:29)
[2021-12-31] MEDS: Allopurinol 100 MG TAB PO SCH (08:20)
[2021-12-31] MEDS: Benzonatate 100 MG CAP PO SCH ×3 (08:20→20:38)
[2021-12-31] MEDS: Cholecalciferol (Vitamin D3) 400 UNITS TAB PO SCH (08:20)
[2021-12-31] MEDS: Ascorbic Acid 500 mg Chewable Tablet PO SCH (08:20)
[2021-12-31] MEDS: Furosemide 40 MG/4 ML VIAL SLOW IVP SCH (08:21)
[2021-12-31] MEDS: hydrALAZINE 25 MG TAB PO SCH ×3 (08:21→20:39)
[2021-12-31] MEDS: Enoxaparin Sodium 30 MG/0.3 ML SYRINGE SC SCH (08:21)
[2021-12-31] MEDS: guaiFENesin ER 600 MG TAB PO SCH ×2 (08:21→20:38)
[2021-12-31] MEDS: Insulin Glargine 30 UNITS/0.3 ML VIAL SC SCH (08:22)
[2021-12-31] MEDS: Vancomycin 1 GM in Premix Bag 1 BAG IVPB SCH ×2 (08:23→21:47)
[2021-12-31] MEDS: Pantoprazole 40 MG VIAL IVP SCH (08:23)
[2021-12-31] MEDS: Zinc Sulfate 220 MG CAP PO SCH (08:23)
[2021-12-31] MEDS ORDERED: Lantus 1000 UNITS/10 ML VIAL SC SCH (09:00)
[2021-12-31] MEDS: Atorvastatin Calcium 20 MG TAB PO SCH (20:38)
[2021-12-31] MEDS: cefTRIAXone\\ROCEPHIN 2 GM in Sodium Chloride 0.9% 100 ML IVPB SCH (20:41)
[2021-12-31] MEDS: Latanoprostene Bunod [Vyzulta] 5 ML Drops EA EYE SCH ×3 (22:04→22:06)
[2022-01-01] MEDS: Albuterol 200 PUFF (6.7GM INHALER) INH SCH ×6 (02:54→22:58)
[2022-01-01 04:52] LABS: #Lymphocytes 0.8 thou/uL (1.20-3.40); #Monocytes 0.4 thou/uL (0.11-0.59); #Neutrophils 9.5 thou/uL (1.40-6.50); %Basophils 0.2 % (0.0-1.0); %Eosinophils 0.2 % (0.0-10.0); %Lymphocytes 7.2 % (21.0-51.0); %Monocytes 3.3 % (0.0-10.0); %Neutrophils 89.2 % (42.0-75.0); Hemoglobin 11.2 g/dL (12.0-16.0); Mean Corpuscular HGB CONC 31.7 g/dL (32.0-36.0); Mean Corpuscular Hemoglobin 30.4 pg (27.0-31.0); Mean Corpuscular Volume 95.8 fL (78.0-98.0); Mean Platelet Volume 9.4 fL (7.4-10.4); Platelet Count 275 thou/uL (130-400); RBC Distribution Width 14.2 % (11.5-14.5); Red Blood Cell (RBC) Count 3.69 mill/uL (4.20-5.40); White Blood Cell (WBC) Count 10.7 thou/uL (4.8-10.8)
[2022-01-01 05:09] LABS: ALT (SGPT) 23 U/L (8-55); AST (SGOT) 23 U/L (5-34); Albumin 2.8 g/dL (3.4-4.8); Alkaline Phosphatase 76 U/L (40-110); Anion Gap 15 mmol/L (10-20); BUN (Urea Nitrogen) 73 mg/dL (9.8-20.1); Bilirubin, Total 0.2 mg/dL (0.2-1.2); CRP (Inflammatory) 2.17 mg/dL (= or < 0.5); Calc. Creatinine Clearance 27 mL/min (70-130); Calcium 8.6 mg/dL (7.8-10.44); Carbon Dioxide 33 mmol/L (23-31); Chloride 100 mmol/L (98-107); Estimated GFR 31; Glucose 260 mg/dL (83-110); Potassium 4.1 mmol/L (3.5-5.1); Protein, Total 5.8 g/dL (5.8-8.1); Sodium 144 mmol/L (136-145)
[2022-01-01] MEDS: methylPREDNISolone Sod Succ 40 MG VIAL IVP SCH ×4 (06:07→22:58)
[2022-01-01] MEDS: HumaLOG 300 UNITS/3 ML VIAL SC PRN ×3 (06:09→20:37)
[2022-01-01 08:22] LABS: Vancomycin, Trough 32.4 ug/mL
[2022-01-01] MEDS ORDERED: Vancomycin HCl 500 MG in Sodium Chloride 0.9% 100 ML IVPB SCH (08:45)
[2022-01-01] MEDS: Ascorbic Acid 500 mg Chewable Tablet PO SCH (10:13)
[2022-01-01] MEDS: Carvedilol 3.125 MG TAB PO SCH ×2 (10:14→18:05)
[2022-01-01] MEDS: Benzonatate 100 MG CAP PO SCH ×3 (10:16→20:29)
[2022-01-01] MEDS: Enoxaparin Sodium 30 MG/0.3 ML SYRINGE SC SCH (10:16)
[2022-01-01] MEDS: Calcitriol 0.25 MCG CAP PO SCH (10:16)
[2022-01-01] MEDS: Cholecalciferol (Vitamin D3) 400 UNITS TAB PO SCH (10:16)
[2022-01-01] MEDS: Aspirin 81 mg Enteric Coated Tablet PO SCH (10:16)
[2022-01-01] MEDS: Allopurinol 100 MG TAB PO SCH (10:16)
[2022-01-01] MEDS: guaiFENesin ER 600 MG TAB PO SCH ×2 (10:17→20:29)
[2022-01-01] MEDS: Furosemide 40 MG/4 ML VIAL SLOW IVP SCH (10:17)
[2022-01-01] MEDS: Famotidine 20 MG TAB PO SCH ×2 (10:17→20:29)
[2022-01-01] MEDS: hydrALAZINE 25 MG TAB PO SCH ×3 (10:17→20:29)
[2022-01-01] MEDS: Insulin Glargine 30 UNITS/0.3 ML VIAL SC SCH (10:17)
[2022-01-01] MEDS: Zinc Sulfate 220 MG CAP PO SCH (10:18)
[2022-01-01] MEDS: Pantoprazole 40 MG VIAL IVP SCH (10:18)
[2022-01-01] MEDS: cefTRIAXone\\ROCEPHIN 2 GM in Sodium Chloride 0.9% 100 ML IVPB SCH (20:28)
[2022-01-01] MEDS: Atorvastatin Calcium 20 MG TAB PO SCH (20:29)
[2022-01-01] MEDS: Latanoprostene Bunod [Vyzulta] 5 ML Drops EA EYE SCH (20:36)
[2022-01-01] MEDS ORDERED: Lantus 1000 UNITS/10 ML VIAL SC SCH (21:00)
[2022-01-01] MEDS ORDERED: Insulin Glargine 30 UNITS/0.3 ML VIAL SC SCH (21:00)
[2022-01-02] MEDS: Albuterol 200 PUFF (6.7GM INHALER) INH SCH ×3 (02:26→09:53)
[2022-01-02 04:38] LABS: #Lymphocytes 0.9 thou/uL (1.20-3.40); #Monocytes 0.4 thou/uL (0.11-0.59); #Neutrophils 8.9 thou/uL (1.40-6.50); %Basophils 0.2 % (0.0-1.0); %Eosinophils 0.1 % (0.0-10.0); %Lymphocytes 9.2 % (21.0-51.0); %Monocytes 3.5 % (0.0-10.0); Hemoglobin 11.6 g/dL (12.0-16.0); Mean Corpuscular HGB CONC 31.7 g/dL (32.0-36.0); Mean Corpuscular Hemoglobin 29.9 pg (27.0-31.0); Mean Corpuscular Volume 94.3 fL (78.0-98.0); Mean Platelet Volume 9.1 fL (7.4-10.4); Platelet Count 281 thou/uL (130-400); RBC Distribution Width 14.2 % (11.5-14.5); Red Blood Cell (RBC) Count 3.87 mill/uL (4.20-5.40); White Blood Cell (WBC) Count 10.3 thou/uL (4.8-10.8)
[2022-01-02 04:58] LABS: Vancomycin, Random 23.4 ug/mL (See Comment)
[2022-01-02 05:01] LABS: Anion Gap 13 mmol/L (10-20); BUN (Urea Nitrogen) 67 mg/dL (9.8-20.1); Calc. Creatinine Clearance 31 mL/min (70-130); Calcium 8.8 mg/dL (7.8-10.44); Carbon Dioxide 36 mmol/L (23-31); Chloride 97 mmol/L (98-107); Estimated GFR 35; Glucose 199 mg/dL (83-110); Phosphorus 4.3 mg/dL (2.3-4.7); Potassium 3.4 mmol/L (3.5-5.1); Sodium 143 mmol/L (136-145)
[2022-01-02] MEDS: HumaLOG 300 UNITS/3 ML VIAL SC PRN ×2 (06:28→11:55)
[2022-01-02] MEDS: methylPREDNISolone Sod Succ 40 MG VIAL IVP SCH (06:30)
[2022-01-02] MEDS ORDERED: predniSONE 20 MG TAB PO SCH (08:00)
[2022-01-02] MEDS: Pantoprazole 40 MG VIAL IVP SCH (08:53)
[2022-01-02] MEDS: hydrALAZINE 25 MG TAB PO SCH (08:54)
[2022-01-02] MEDS: Benzonatate 100 MG CAP PO SCH (08:55)
[2022-01-02] MEDS: Ascorbic Acid 500 mg Chewable Tablet PO SCH (08:55)
[2022-01-02] MEDS: Enoxaparin Sodium 30 MG/0.3 ML SYRINGE SC SCH (08:55)
[2022-01-02] MEDS: Cholecalciferol (Vitamin D3) 400 UNITS TAB PO SCH (08:55)
[2022-01-02] MEDS: Allopurinol 100 MG TAB PO SCH (08:55)
[2022-01-02] MEDS: Calcitriol 0.25 MCG CAP PO SCH (08:55)
[2022-01-02] MEDS: Zinc Sulfate 220 MG CAP PO SCH (08:56)
[2022-01-02] MEDS: Insulin Glargine 30 UNITS/0.3 ML VIAL SC SCH (08:56)
[2022-01-02] MEDS: Carvedilol 3.125 MG TAB PO SCH (08:56)
[2022-01-02] MEDS: Aspirin 81 mg Enteric Coated Tablet PO SCH (08:56)
[2022-01-02] MEDS: guaiFENesin ER 600 MG TAB PO SCH (08:56)
[2022-01-02] MEDS: Furosemide 40 MG/4 ML VIAL SLOW IVP SCH (08:56)
[2022-01-02] MEDS ORDERED: Magnesium 2 GM/50 ML(in water) 2 GM in Premix Bag 1 BAG IVPB SCH (09:00)
[2022-01-02] MEDS ORDERED: Potassium Chloride 20 MEQ TAB PO SCH (09:00)
[2022-01-02 15:34] VITALS: BP 158/70; TEMP 97.3
[2022-01-02] MEDS ORDERED: Famotidine 20 MG TAB PO SCH (21:00)
== END 2022-01-02 16:21 | disposition home health service (06) | DRG 871 ==
LOC: ERS 16:32 → ERHOLD 20:02 → 2SW 12-27 03:31
PROVIDERS: ADMIT Internal Medicine; ATTEND Internal Medicine
PROC: 3E03329 Introduction of Other Anti-infective into Peripheral Vein, Percutaneous Approach (ICD-10-PCS; 2021-12-26)
PROC: 8E0ZXY6 Isolation (ICD-10-PCS; 2021-12-26)
PROC: XW033E5 Introduction of Remdesivir Anti-infective into Peripheral Vein, Percutaneous Approach, New Technology Group 5 (ICD-10-PCS; principal; 2021-12-27)
DX: A40.8 Other streptococcal sepsis (principal); U07.1 COVID-19; J96.21 Acute and chronic respiratory failure with hypoxia; J15.9 Unspecified bacterial pneumonia; I50.33 Acute on chronic diastolic (congestive) heart failure; J44.1 Chronic obstructive pulmonary disease with (acute) exacerbation; J44.0 Chronic obstructive pulmonary disease with (acute) lower respiratory infection; I13.0 Hypertensive heart and chronic kidney disease with heart failure and stage 1 through stage 4 chronic kidney disease, or unspecified chronic kidney disease; Z16.24 Resistance to multiple antibiotics; R65.20 Severe sepsis without septic shock; E11.65 Type 2 diabetes mellitus with hyperglycemia; R77.8 Other specified abnormalities of plasma proteins; N18.30 Chronic kidney disease, stage 3 unspecified; E11.22 Type 2 diabetes mellitus with diabetic chronic kidney disease; E78.00 Pure hypercholesterolemia, unspecified; E83.42 Hypomagnesemia; Z88.0 Allergy status to penicillin; Z99.81 Dependence on supplemental oxygen; Z95.1 Presence of aortocoronary bypass graft; Z79.899 Other long term (current) drug therapy; Z79.82 Long term (current) use of aspirin; Z79.52 Long term (current) use of systemic steroids; Z98.890 Other specified postprocedural states
CPT/HCPCS: 36415; 36416; 71045; 80048; 80053; 80202; 82553; 83605; 83735; 83880; 84100; 84484; 85025; 86140; 87040; 87077; 87149; 87186; 93005; 93798; 94640; 96365; 96367; 96375; C9113; J0248; J0360; J0456; J0692; J0696; J1100; J1650; J1815; J1940; J2920; J2930; J3370; J3475; J3490; J7050; J7512; J7620; Q0162; U0002

== ENCOUNTER 2022-07-06 21:26 | Inpatient (IN) | payer MEDICARE, MEDICAID ==
[2022-07-06] MEDS ORDERED: Dextrose 50% Abboject 50 ML SYRINGE ONE ×2 (21:30→21:33)
[2022-07-06 22:11] LABS: #Eosinphils 0.2 thou/uL (0.0-0.7); #Lymphocytes 2.1 thou/uL (1.20-3.40); #Neutrophils 9.6 thou/uL (1.40-6.50); %Basophils 0.3 % (0.0-1.0); %Eosinophils 1.8 % (0.0-10.0); %Lymphocytes 16.5 % (21.0-51.0); %Monocytes 7.4 % (0.0-10.0); Actual Bicarbonate (HCO3v) 32 mEq/L (22-28); Base Excess 7.4 mEq/L (-2.0 to +3.0); Calcium, Ionized (venous) 1.02 mmol/L (1.16-1.32); Chloride (VBG) 100 mmol/L (98-106); Mean Corpuscular HGB CONC 32.2 g/dL (32.0-36.0); Mean Corpuscular Hemoglobin 29.8 pg (27.0-31.0); Mean Corpuscular Volume 92.4 fl (78.0-98.0); Platelet Count 224 10x3/uL (130-400); Potassium (VBG) 2.96 mmol/L (3.70-5.30); RBC Distribution Width 14.7 % (11.5-14.5); Red Blood Cell (RBC) Count 4.02 mill/uL (4.20-5.40); Sodium 138.4 mmol/L (133-146); pH (venous) 7.49 (7.32-7.43)
[2022-07-06 22:22] LABS: Bacteria/HPF None Seen HPF (None Seen); Bilirubin Negative (Negative); Blood, Urine Trace (Negative); Clarity Clear (Clear); Glucose, Urine (Dipstick) Normal (Negative); Ketone, Urine Negative (Negative); Leukocyte Negative Leu/uL (Negative); Nitrite Negative (Negative); Protein, Urine (Dipstick) 300 mg/dL (Neg-Trace); RBC/HPF 0-3 HPF (0-3); Specific Gravity, Urine 1.018 (1.002-1.036); Squamous Epithelial None Seen HPF (0-3); WBC/HPF 0-3 HPF (0-3); pH, Urine 6.5 (5.0-9.0)
[2022-07-06 22:30] LABS: Amphetamine Not Detected (NotDetected); Barbiturates Screen Not Detected (NotDetected); Benzodiazepine Screen Not Detected (NotDetected); Cocaine Metabolite Screen Not Detected (NotDetected); Methadone Not Detected (NotDetected); Methamphetamine Not Detected (NotDetected); Opiate Screen Not Detected (NotDetected); Oxycodone Screen Not Detected (NotDetected); Phencyclidine (PCP) Not Detected (NotDetected); THC/Cannabinoid Screen Not Detected (NotDetected); Tricyclic Screen Not Detected (NotDetected)
[2022-07-06 22:31] LABS: Acetaminophen Less than 10.0 mcg/mL (10.0-30.0); Alcohol Less than 10 mg/dL (Less than 10); Lipase 26 U/L (8-78); Salicylate Less than 8.0 mg/dL (15.0-30.0)
[2022-07-06 22:32] LABS: ALT (SGPT) Less than 7 U/L (8-55); AST (SGOT) 15 U/L (5-34); Albumin 3.1 g/dL (3.4-4.8); Alkaline Phosphatase 100 U/L (40-110); Anion Gap 14 mmol/L (10-20); BUN (Urea Nitrogen) 20 mg/dL (9.8-20.1); Bilirubin, Total 0.5 mg/dL (0.2-1.2); Calc. Creatinine Clearance 0 mL/min (70-130); Calcium 8.4 mg/dL (7.8-10.44); Carbon Dioxide 29 mmol/L (23-31); Chloride 101 mmol/L (98-107); Estimated GFR 43; Globulin 2.9 g/dL (2.4-3.5); Glucose 68 mg/dL (83-110); Potassium 3.2 mmol/L (3.5-5.1); Sodium 141 mmol/L (136-145)
[2022-07-06] MEDS ORDERED: Cefepime 2 GM VIAL ONE (22:39)
[2022-07-06] MEDS ORDERED: Vancomycin 1 GM/200 ML (FROZEN) BAG ONE (23:30)
[2022-07-06] MEDS ORDERED: Dextrose 5% in Water 1,000 ML IV PRN (23:45)
[2022-07-06] MEDS ORDERED: Potassium Chloride 20 MEQ in Premix Bag 1 BAG IVPB SCH (23:45)
[2022-07-07 01:45] VITALS: BMI 30.2
[2022-07-07] MEDS ORDERED: Vancomycin Dose by Levels Sliding Scale (Wt <71) FS SCH (02:00)
[2022-07-07] MEDS ORDERED: Vancomycin HCl 500 MG in Sodium Chloride 0.9% 100 ML IVPB SCH (02:15)
[2022-07-07] MEDS: Dextrose 50% Abboject 50 ML SYRINGE SLOW IVP PRN ×2 (05:20→12:01)
[2022-07-07] MEDS: Dextrose 5%-Lactated Ringers 1,000 ML IV SCH ×2 (06:24→18:19)
[2022-07-07 07:00] LABS: #Eosinphils 0.1 thou/uL (0.0-0.7); #Lymphocytes 1.4 thou/uL (1.20-3.40); #Monocytes 0.8 thou/uL (0.11-0.59); #Neutrophils 7.8 thou/uL (1.40-6.50); %Basophils 0.2 % (0.0-1.0); %Eosinophils 0.7 % (0.0-10.0); %Lymphocytes 14.2 % (21.0-51.0); %Monocytes 7.5 % (0.0-10.0); %Neutrophils 77.3 % (42.0-75.0); Hemoglobin 10.6 g/dL (12.0-16.0); Mean Corpuscular HGB CONC 31.9 g/dL (32.0-36.0); Mean Corpuscular Hemoglobin 29.8 pg (27.0-31.0); Mean Corpuscular Volume 93.6 fl (78.0-98.0); Mean Platelet Volume 9.9 fL (7.4-10.4); Platelet Count 233 10x3/uL (130-400); RBC Distribution Width 14.6 % (11.5-14.5); Red Blood Cell (RBC) Count 3.56 mill/uL (4.20-5.40); White Blood Cell (WBC) Count 10.1 10x3/uL (4.8-10.8)
[2022-07-07 07:22] LABS: Anion Gap 12 mmol/L (10-20); BUN (Urea Nitrogen) 19 mg/dL (9.8-20.1); Calc. Creatinine Clearance 38 mL/min (70-130); Calcium 8.4 mg/dL (7.8-10.44); Carbon Dioxide 28 mmol/L (23-31); Chloride 104 mmol/L (98-107); Estimated GFR 46; Glucose 101 mg/dL (83-110); Potassium 2.9 mmol/L (3.5-5.1); Sodium 141 mmol/L (136-145)
[2022-07-07] MEDS ORDERED: Vancomycin 1 GM in Premix Bag 1 BAG IVPB SCH (09:00)
[2022-07-07] MEDS: Potassium Chloride 20 MEQ in Premix Bag 1 BAG IVPB SCH ×2 (10:04→16:00)
[2022-07-07] MEDS ORDERED: Ipratropium/Albuterol 3 ML NEB IPPB PRN (17:26)
[2022-07-07] MEDS: Potassium Chloride 20 MEQ TAB PO SCH ×2 (18:20→23:28)
[2022-07-07] MEDS: Albuterol 200 PUFF (6.7GM INHALER) INH PRN (20:41)
[2022-07-07] MEDS ORDERED: Non-Formulary Item 1 EACH (Latanoprostene Bunod [Vyzulta] 5 ML Drops) FS SCH (21:00)
[2022-07-07] MEDS: hydrALAZINE 25 MG TAB PO SCH (21:56)
[2022-07-07] MEDS: Atorvastatin Calcium 20 MG TAB PO SCH (21:56)
[2022-07-07] MEDS ORDERED: Cefepime 1 GM in Sodium Chloride 0.9% 100 ML IVPB SCH (22:00)
[2022-07-07 22:35] LABS: Vancomycin, Random 14.5 ug/mL (See Comment)
[2022-07-08] MEDS: Albuterol 200 PUFF (6.7GM INHALER) INH PRN (00:18)
[2022-07-08] MEDS ORDERED: hydrOXYzine Pamoate 25 mg Capsule PO SCH (01:45)
[2022-07-08] MEDS: Dextrose 5%-Lactated Ringers 1,000 ML IV SCH ×3 (05:55→21:56)
[2022-07-08 07:54] LABS: #Eosinphils 0.6 thou/uL (0.0-0.7); #Lymphocytes 2.4 thou/uL (1.20-3.40); #Monocytes 0.8 thou/uL (0.11-0.59); #Neutrophils 6.3 thou/uL (1.40-6.50); %Basophils 0.3 % (0.0-1.0); %Eosinophils 5.9 % (0.0-10.0); %Lymphocytes 23.3 % (21.0-51.0); %Monocytes 7.7 % (0.0-10.0); %Neutrophils 62.8 % (42.0-75.0); Hemoglobin 10.9 g/dL (12.0-16.0); Mean Corpuscular HGB CONC 31.4 g/dL (32.0-36.0); Mean Corpuscular Hemoglobin 29.3 pg (27.0-31.0); Mean Corpuscular Volume 93.4 fl (78.0-98.0); Mean Platelet Volume 9.8 fL (7.4-10.4); Platelet Count 277 10x3/uL (130-400); RBC Distribution Width 14.7 % (11.5-14.5); Red Blood Cell (RBC) Count 3.71 mill/uL (4.20-5.40); White Blood Cell (WBC) Count 10.1 10x3/uL (4.8-10.8)
[2022-07-08] MEDS ORDERED: Electrolyte Replacement Protocol 1 EACH FS SCH (08:15)
[2022-07-08 08:23] LABS: Anion Gap 12 mmol/L (10-20); BUN (Urea Nitrogen) 17 mg/dL (9.8-20.1); Calc. Creatinine Clearance 45 mL/min (70-130); Calcium 9.2 mg/dL (7.8-10.44); Carbon Dioxide 28 mmol/L (23-31); Chloride 108 mmol/L (98-107); Estimated GFR 56; Glucose 113 mg/dL (83-110); Potassium 4.7 mmol/L (3.5-5.1); Sodium 143 mmol/L (136-145)
[2022-07-08] MEDS ORDERED: Electrolyte Replacement Protocol FS PRN (08:30)
[2022-07-08 08:52] LABS: Magnesium 1.5 mg/dL (1.6-2.6); Phosphorus 2.6 mg/dL (2.3-4.7)
[2022-07-08] MEDS: Allopurinol 100 MG TAB PO SCH (09:58)
[2022-07-08] MEDS: Ascorbic Acid 500 mg Chewable Tablet PO SCH (09:58)
[2022-07-08] MEDS: hydrALAZINE 25 MG TAB PO SCH ×3 (09:59→21:30)
[2022-07-08] MEDS: Calcitriol 0.25 MCG CAP PO SCH (09:59)
[2022-07-08] MEDS: Aspirin 81 mg Enteric Coated Tablet PO SCH (09:59)
[2022-07-08] MEDS ORDERED: Magnesium 2 GM/50 ML(in water) 2 GM in Premix Bag 1 BAG IVPB SCH (11:30)
[2022-07-08] MEDS: Ipratropium/Albuterol 3 ML NEB NEB SCH ×3 (13:23→22:34)
[2022-07-08] MEDS: Cefepime 1 GM in Sodium Chloride 0.9% 100 ML IVPB SCH (21:24)
[2022-07-08] MEDS: Atorvastatin Calcium 20 MG TAB PO SCH (21:30)
[2022-07-09] MEDS: Ipratropium/Albuterol 3 ML NEB NEB SCH ×6 (02:13→22:00)
[2022-07-09] MEDS: Ascorbic Acid 500 mg Chewable Tablet PO SCH (08:22)
[2022-07-09] MEDS: Allopurinol 100 MG TAB PO SCH (08:22)
[2022-07-09] MEDS: Calcitriol 0.25 MCG CAP PO SCH (08:22)
[2022-07-09] MEDS: Aspirin 81 mg Enteric Coated Tablet PO SCH (08:22)
[2022-07-09] MEDS: Cefepime 1 GM in Sodium Chloride 0.9% 100 ML IVPB SCH ×2 (08:23→20:42)
[2022-07-09] MEDS: hydrALAZINE 25 MG TAB PO SCH ×3 (08:23→20:42)
[2022-07-09 09:00] LABS: #Eosinphils 0.8 thou/uL (0.0-0.7); #Lymphocytes 2.6 thou/uL (1.20-3.40); #Monocytes 0.9 thou/uL (0.11-0.59); #Neutrophils 6.9 thou/uL (1.40-6.50); %Basophils 0.2 % (0.0-1.0); %Eosinophils 7.4 % (0.0-10.0); %Monocytes 8.2 % (0.0-10.0); %Neutrophils 61.2 % (42.0-75.0); Mean Corpuscular HGB CONC 30.4 g/dL (32.0-36.0); Mean Corpuscular Hemoglobin 28.3 pg (27.0-31.0); Mean Corpuscular Volume 93.3 fl (78.0-98.0); Platelet Count 312 10x3/uL (130-400); RBC Distribution Width 14.9 % (11.5-14.5); Red Blood Cell (RBC) Count 3.89 mill/uL (4.20-5.40); White Blood Cell (WBC) Count 11.3 10x3/uL (4.8-10.8)
[2022-07-09 09:22] LABS: Anion Gap 14 mmol/L (10-20); BUN (Urea Nitrogen) 15 mg/dL (9.8-20.1); Calc. Creatinine Clearance 47 mL/min (70-130); Calcium 9.4 mg/dL (7.8-10.44); Carbon Dioxide 28 mmol/L (23-31); Chloride 103 mmol/L (98-107); Estimated GFR 58; Glucose 146 mg/dL (83-110); Magnesium 1.7 mg/dL (1.6-2.6); Potassium 4.7 mmol/L (3.5-5.1); Sodium 140 mmol/L (136-145)
[2022-07-09] MEDS ORDERED: Magnesium 2 GM/50 ML(in water) 2 GM in Premix Bag 1 BAG IVPB SCH (10:15)
[2022-07-09] MEDS ORDERED: Artificial Tear Sol 15 ML BOT EA EYE PRN (13:11)
[2022-07-09] MEDS: metroNIDAZOLE 500 MG TAB PO SCH ×2 (14:14→20:42)
[2022-07-09] MEDS ORDERED: traMADol HCl 50 MG TAB PO PRN (15:17)
[2022-07-09] MEDS: GUAIFENESIN SF SOLN 200 MG/10 ML UDCUP PO PRN (16:54)
[2022-07-09] MEDS: guaiFENesin ER 600 MG TAB PO SCH (20:42)
[2022-07-09] MEDS: Atorvastatin Calcium 20 MG TAB PO SCH (20:42)
[2022-07-09 22:50] LABS: Troponin I 0.036 ng/mL (< 0.028)
[2022-07-10 01:31] LABS: Troponin I 0.029 ng/mL (< 0.028)
[2022-07-10] MEDS: Ipratropium/Albuterol 3 ML NEB NEB SCH ×6 (02:06→23:16)
[2022-07-10 07:15] LABS: Troponin I 0.041 ng/mL (< 0.028)
[2022-07-10 07:16] LABS: Anion Gap 12 mmol/L (10-20); BUN (Urea Nitrogen) 18 mg/dL (9.8-20.1); CRP (Inflammatory) 11.92 mg/dL (= or < 0.5); Calc. Creatinine Clearance 56 mL/min (70-130); Calcium 9.3 mg/dL (7.8-10.44); Carbon Dioxide 31 mmol/L (23-31); Chloride 101 mmol/L (98-107); Estimated GFR 73; Glucose 128 mg/dL (83-110); Potassium 4.7 mmol/L (3.5-5.1); Sodium 139 mmol/L (136-145)
[2022-07-10] MEDS: guaiFENesin ER 600 MG TAB PO SCH ×2 (08:50→21:25)
[2022-07-10] MEDS: Aspirin 81 mg Enteric Coated Tablet PO SCH (08:50)
[2022-07-10] MEDS: metroNIDAZOLE 500 MG TAB PO SCH ×3 (08:50→21:26)
[2022-07-10] MEDS: Ascorbic Acid 500 mg Chewable Tablet PO SCH (08:50)
[2022-07-10] MEDS: Cefepime 1 GM in Sodium Chloride 0.9% 100 ML IVPB SCH ×2 (08:50→21:25)
[2022-07-10] MEDS: hydrALAZINE 25 MG TAB PO SCH ×3 (08:50→21:26)
[2022-07-10] MEDS: Allopurinol 100 MG TAB PO SCH (08:50)
[2022-07-10] MEDS: Calcitriol 0.25 MCG CAP PO SCH (08:50)
[2022-07-10] MEDS ORDERED: Iopamidol 370 76% 100 ML VIAL ONE (13:05)
[2022-07-10] MEDS: Carvedilol 3.125 MG TAB PO SCH (16:25)
[2022-07-10] MEDS: Atorvastatin Calcium 20 MG TAB PO SCH (21:25)
[2022-07-10] MEDS: Saccharomyces boulardii 250 MG CAP PO SCH (21:26)
[2022-07-11] MEDS: Ipratropium/Albuterol 3 ML NEB NEB SCH ×6 (00:44→23:09)
[2022-07-11] MEDS: GUAIFENESIN SF SOLN 200 MG/10 ML UDCUP PO PRN (02:52)
[2022-07-11 04:46] LABS: #Lymphocytes 1.9 thou/uL (1.20-3.40); #Monocytes 0.9 thou/uL (0.11-0.59); #Neutrophils 4.7 thou/uL (1.40-6.50); %Basophils 0.1 % (0.0-1.0); %Eosinophils 11.4 % (0.0-10.0); %Lymphocytes 22.7 % (21.0-51.0); %Monocytes 10.4 % (0.0-10.0); %Neutrophils 55.5 % (42.0-75.0); Hemoglobin 11.3 g/dL (12.0-16.0); Mean Corpuscular HGB CONC 31.8 g/dL (32.0-36.0); Mean Corpuscular Hemoglobin 29.7 pg (27.0-31.0); Mean Corpuscular Volume 93.3 fl (78.0-98.0); Platelet Count 280 10x3/uL (130-400); RBC Distribution Width 14.7 % (11.5-14.5); Red Blood Cell (RBC) Count 3.81 mill/uL (4.20-5.40); White Blood Cell (WBC) Count 8.5 10x3/uL (4.8-10.8)
[2022-07-11 05:07] LABS: Anion Gap 13 mmol/L (10-20); BUN (Urea Nitrogen) 16 mg/dL (9.8-20.1); Calc. Creatinine Clearance 45 mL/min (70-130); Calcium 9.2 mg/dL (7.8-10.44); Carbon Dioxide 30 mmol/L (23-31); Chloride 99 mmol/L (98-107); Estimated GFR 56; Glucose 126 mg/dL (83-110); Magnesium 2.1 mg/dL (1.6-2.6); Potassium 4.5 mmol/L (3.5-5.1); Sodium 137 mmol/L (136-145)
[2022-07-11] MEDS: metroNIDAZOLE 500 MG TAB PO SCH (08:59)
[2022-07-11] MEDS: Cefepime 1 GM in Sodium Chloride 0.9% 100 ML IVPB SCH ×2 (08:59→20:21)
[2022-07-11] MEDS: Ascorbic Acid 500 mg Chewable Tablet PO SCH (08:59)
[2022-07-11] MEDS: Brimonidine Tartrate 0.2% Ophth Soln 5 ml Bottle EA EYE SCH ×3 (09:00→20:20)
[2022-07-11] MEDS: Calcitriol 0.25 MCG CAP PO SCH (09:00)
[2022-07-11] MEDS: hydrALAZINE 25 MG TAB PO SCH ×3 (09:00→20:20)
[2022-07-11] MEDS: Furosemide 40 MG TAB PO SCH (09:00)
[2022-07-11] MEDS: Carvedilol 3.125 MG TAB PO SCH ×2 (09:00→16:14)
[2022-07-11] MEDS: guaiFENesin ER 600 MG TAB PO SCH ×2 (09:00→20:20)
[2022-07-11] MEDS: Aspirin 81 mg Enteric Coated Tablet PO SCH (09:00)
[2022-07-11] MEDS: Allopurinol 100 MG TAB PO SCH (09:00)
[2022-07-11] MEDS: Timolol 0.5% Ophth Soln 5 ml Bottle EA EYE SCH ×3 (09:01→20:19)
[2022-07-11] MEDS: Atorvastatin Calcium 20 MG TAB PO SCH (20:20)
[2022-07-11] MEDS: Saccharomyces boulardii 250 MG CAP PO SCH (20:21)
[2022-07-12] MEDS: Ipratropium/Albuterol 3 ML NEB NEB SCH ×6 (03:16→22:17)
[2022-07-12 05:02] LABS: #Eosinphils 0.9 thou/uL (0.0-0.7); #Lymphocytes 1.9 thou/uL (1.20-3.40); #Monocytes 0.7 thou/uL (0.11-0.59); #Neutrophils 3.9 thou/uL (1.40-6.50); %Basophils 0.4 % (0.0-1.0); %Eosinophils 12.8 % (0.0-10.0); %Monocytes 9.3 % (0.0-10.0); %Neutrophils 52.4 % (42.0-75.0); Hemoglobin 10.7 g/dL (12.0-16.0); Mean Corpuscular HGB CONC 31.2 g/dL (32.0-36.0); Mean Corpuscular Hemoglobin 29.1 pg (27.0-31.0); Mean Corpuscular Volume 93.4 fl (78.0-98.0); Mean Platelet Volume 9.1 fL (7.4-10.4); Platelet Count 317 10x3/uL (130-400); RBC Distribution Width 14.6 % (11.5-14.5); Red Blood Cell (RBC) Count 3.68 mill/uL (4.20-5.40); White Blood Cell (WBC) Count 7.4 10x3/uL (4.8-10.8)
[2022-07-12 05:14] LABS: Anion Gap 12 mmol/L (10-20); BUN (Urea Nitrogen) 17 mg/dL (9.8-20.1); CRP (Inflammatory) 9.82 mg/dL (= or < 0.5); Calc. Creatinine Clearance 38 mL/min (70-130); Calcium 9.2 mg/dL (7.8-10.44); Carbon Dioxide 34 mmol/L (23-31); Chloride 97 mmol/L (98-107); Estimated GFR 45; Glucose 121 mg/dL (83-110); Potassium 4.5 mmol/L (3.5-5.1); Sodium 138 mmol/L (136-145)
[2022-07-12] MEDS: Cefepime 1 GM in Sodium Chloride 0.9% 100 ML IVPB SCH ×2 (09:12→21:54)
[2022-07-12] MEDS: Ascorbic Acid 500 mg Chewable Tablet PO SCH (09:20)
[2022-07-12] MEDS: hydrALAZINE 25 MG TAB PO SCH ×3 (09:20→21:51)
[2022-07-12] MEDS: Calcitriol 0.25 MCG CAP PO SCH (09:22)
[2022-07-12] MEDS: Aspirin 81 mg Enteric Coated Tablet PO SCH (09:22)
[2022-07-12] MEDS: Carvedilol 3.125 MG TAB PO SCH ×2 (09:22→18:25)
[2022-07-12] MEDS: Azithromycin 250 MG TAB PO SCH (09:22)
[2022-07-12] MEDS: Furosemide 40 MG TAB PO SCH (09:22)
[2022-07-12] MEDS: guaiFENesin ER 600 MG TAB PO SCH ×2 (09:22→21:51)
[2022-07-12] MEDS: Allopurinol 100 MG TAB PO SCH (09:22)
[2022-07-12] MEDS: Timolol 0.5% Ophth Soln 5 ml Bottle EA EYE SCH ×2 (09:43→21:49)
[2022-07-12] MEDS: Brimonidine Tartrate 0.2% Ophth Soln 5 ml Bottle EA EYE SCH ×2 (09:43→21:49)
[2022-07-12] MEDS ORDERED: Latanoprost 0.005% Ophth Soln 2.5 ml Bottle EA EYE SCH (21:00)
[2022-07-12] MEDS: GUAIFENESIN SF SOLN 200 MG/10 ML UDCUP PO PRN (21:51)
[2022-07-12] MEDS: Atorvastatin Calcium 20 MG TAB PO SCH (21:51)
[2022-07-12] MEDS: Saccharomyces boulardii 250 MG CAP PO SCH (21:51)
[2022-07-13] MEDS: Ipratropium/Albuterol 3 ML NEB NEB SCH ×3 (02:05→10:32)
[2022-07-13] MEDS: Brimonidine Tartrate 0.2% Ophth Soln 5 ml Bottle EA EYE SCH (08:45)
[2022-07-13] MEDS: Cefepime 1 GM in Sodium Chloride 0.9% 100 ML IVPB SCH (08:46)
[2022-07-13] MEDS: Timolol 0.5% Ophth Soln 5 ml Bottle EA EYE SCH (08:51)
[2022-07-13] MEDS: Allopurinol 100 MG TAB PO SCH (08:52)
[2022-07-13] MEDS: Carvedilol 3.125 MG TAB PO SCH (08:52)
[2022-07-13] MEDS: Calcitriol 0.25 MCG CAP PO SCH (08:52)
[2022-07-13] MEDS: Ascorbic Acid 500 mg Chewable Tablet PO SCH (08:52)
[2022-07-13] MEDS: hydrALAZINE 25 MG TAB PO SCH ×2 (08:53→15:42)
[2022-07-13] MEDS: guaiFENesin ER 600 MG TAB PO SCH (08:55)
[2022-07-13] MEDS: Furosemide 40 MG TAB PO SCH (08:55)
[2022-07-13] MEDS: Aspirin 81 mg Enteric Coated Tablet PO SCH (08:55)
[2022-07-13] MEDS: Azithromycin 250 MG TAB PO SCH (08:55)
[2022-07-13 12:17] VITALS: BP 102/54; TEMP 97.3
[2022-07-13] MEDS ORDERED: Famotidine 20 MG TAB PO SCH (15:45)
[2022-07-13] MEDS ORDERED: methylPREDNISolone Sod Succ 40 MG VIAL IVP SCH (15:45)
[2022-07-13] MEDS ORDERED: diphenhydrAMINE 25 MG CAP PO SCH (15:45)
== END 2022-07-13 16:13 | disposition home or self-care (01) | DRG 871 ==
LOC: ERS 21:26 → ERHOLD 23:33 → T4-A 07-07 00:37 → OBSVTOIN 07-07 17:30 → 2NO 07-10 13:23
PROVIDERS: ADMIT Internal Medicine; ATTEND Hospitalist
DX: A41.9 Sepsis, unspecified organism (principal); G93.41 Metabolic encephalopathy; J69.0 Pneumonitis due to inhalation of food and vomit; J96.01 Acute respiratory failure with hypoxia; J18.9 Pneumonia, unspecified organism; J44.0 Chronic obstructive pulmonary disease with (acute) lower respiratory infection; I50.32 Chronic diastolic (congestive) heart failure; I13.0 Hypertensive heart and chronic kidney disease with heart failure and stage 1 through stage 4 chronic kidney disease, or unspecified chronic kidney disease; Z66 Do not resuscitate; E11.649 Type 2 diabetes mellitus with hypoglycemia without coma; E11.22 Type 2 diabetes mellitus with diabetic chronic kidney disease; N18.30 Chronic kidney disease, stage 3 unspecified; E83.42 Hypomagnesemia; E87.6 Hypokalemia; H40.10X0 Unspecified open-angle glaucoma, stage unspecified; Z88.0 Allergy status to penicillin; Z79.51 Long term (current) use of inhaled steroids; Z79.82 Long term (current) use of aspirin
CPT/HCPCS: 36415; 36416; 51701; 70450; 71045; 71275; 80048; 80053; 80202; 80306; 80307; 81003; 81015; 82805; 83605; 83690; 83735; 84100; 84443; 84484; 85025; 86140; 87040; 87081; 87086; 93005; 93010; 93306; 94640; 96361; 96365; 96367; 96372; 96375; 96376; G0378; J0692; J1611; J1650; J2920; J3370; J3370-JW; J3475; J3480; J3490; J7620; J7999; Q0177; Q9967; U0003; U0005

== ENCOUNTER 2022-07-15 05:40 | Emergency (ER) | payer MEDICARE, MEDICAID ==
[2022-07-15 06:28] LABS: #Eosinphils 0.3 thou/uL (0.0-0.7); #Lymphocytes 2.9 thou/uL (1.20-3.40); #Monocytes 0.8 thou/uL (0.11-0.59); #Neutrophils 6.5 thou/uL (1.40-6.50); %Basophils 0.3 % (0.0-1.0); %Eosinophils 2.5 % (0.0-10.0); %Lymphocytes 27.4 % (21.0-51.0); %Monocytes 7.9 % (0.0-10.0); Hemoglobin 10.8 g/dL (12.0-16.0); Mean Corpuscular HGB CONC 31.9 g/dL (32.0-36.0); Mean Corpuscular Hemoglobin 29.5 pg (27.0-31.0); Mean Corpuscular Volume 92.5 fl (78.0-98.0); Mean Platelet Volume 8.6 fL (7.4-10.4); Platelet Count 362 10x3/uL (130-400); RBC Distribution Width 14.9 % (11.5-14.5); Red Blood Cell (RBC) Count 3.65 mill/uL (4.20-5.40); White Blood Cell (WBC) Count 10.5 10x3/uL (4.8-10.8)
[2022-07-15 06:47] LABS: ALT (SGPT) 9 U/L (8-55); AST (SGOT) 31 U/L (5-34); Albumin 2.9 g/dL (3.4-4.8); Alkaline Phosphatase 72 U/L (40-110); Anion Gap 14 mmol/L (10-20); BUN (Urea Nitrogen) 23 mg/dL (9.8-20.1); Bilirubin, Total 0.3 mg/dL (0.2-1.2); Calc. Creatinine Clearance 0 mL/min (70-130); Carbon Dioxide 35 mmol/L (23-31); Chloride 97 mmol/L (98-107); Estimated GFR 34; Globulin 3.1 g/dL (2.4-3.5); Glucose 83 mg/dL (83-110); Magnesium 1.7 mg/dL (1.6-2.6); Potassium 3.8 mmol/L (3.5-5.1); Sodium 142 mmol/L (136-145)
[2022-07-15 07:33] LABS: Actual Bicarbonate (HCO3a) 36.2 mEq/L (22-28); Analyzer IN Cardio ER; Base Excess (BEa) 10.1 mEq/L (-2.0 to +3.0); CO2 Tension 56.2 mmHg (35.0-45.0); Calcium, Ionized (arterial) 1.15 mmol/L (1.12-1.30); Carboxyhemoglobin (COHb) 0.3 gm% (0.0-3.0); Hemoglobin (Hb) 11.4 g/dL (12.0-16.0); O2 Tension (PaO2), arterial 100.6 mmHg (> 60.0); Potassium - ABG Lab 3.52 mmol/L (3.70-5.30); pH, Arterial 7.43 (7.35-7.45)
[2022-07-15 07:34] LABS: Puncture Site RRA
[2022-07-15 08:45] LABS: CK (CPK) 35 U/L (29-168); Lipase 20 U/L (8-78)
[2022-07-15 15:50] LABS: Bacteria/HPF None Seen HPF (None Seen); Bilirubin Negative (Negative); Blood, Urine Negative (Negative); Clarity Clear (Clear); Glucose, Urine (Dipstick) Normal (Negative); Ketone, Urine Negative (Negative); Leukocyte Negative Leu/uL (Negative); Nitrite Negative (Negative); Protein, Urine (Dipstick) 200 mg/dL (Neg-Trace); RBC/HPF 0-3 HPF (0-3); Specific Gravity, Urine 1.014 (1.002-1.036); Squamous Epithelial 0-3 HPF (0-3); Urobilinogen Normal mg/dL (Less than 2); WBC/HPF 0-3 HPF (0-3); pH, Urine 6.5 (5.0-9.0)
== END 2022-07-15 19:16 ==
LOC: ERS 05:40
DX: R62.7 Adult failure to thrive (principal); E11.22 Type 2 diabetes mellitus with diabetic chronic kidney disease; I12.9 Hypertensive chronic kidney disease with stage 1 through stage 4 chronic kidney disease, or unspecified chronic kidney disease; N18.9 Chronic kidney disease, unspecified; E78.00 Pure hypercholesterolemia, unspecified; J44.9 Chronic obstructive pulmonary disease, unspecified; Z79.899 Other long term (current) drug therapy; Z79.84 Long term (current) use of oral hypoglycemic drugs; Z79.82 Long term (current) use of aspirin
CPT/HCPCS: 36415; 36600; 71045; 80053; 81003; 81015; 82550; 82553; 82805; 83690; 83735; 83880; 84443; 84484; 85025; 93005

== ENCOUNTER 2022-07-18 10:21 | Outpatient (CLI) | payer MEDICARE, MEDICAID | END 2022-07-18 10:22 | disposition home or self-care (01) | LOC: RAD 10:21 | PROVIDERS: ATTEND Physical Medicine & Rehabilitation | DX: I69.891 Dysphagia following other cerebrovascular disease (principal); R13.10 Dysphagia, unspecified; R63.30 Feeding difficulties, unspecified | CPT/HCPCS: 74230 ==